=== PATIENT | female | born 1950 | race Caucasian/White ===

== ENCOUNTER 2016-11-26 11:21 | Inpatient (IN) | payer MEDICARE, OTHER ==
[2016-11-26] MEDS ORDERED: NS 0.9% 1000 ML* 1,000 ML IV ONE (11:46)
[2016-11-26 12:06] LABS: Hematocrit 37 % (35-47); Hemoglobin 11.9 g/dl (12.0-16.0); Mean Corpuscular HGB Conc 33 g/dl (31-36); Mean Corpuscular Hemoglobin 30 pg (27-31); Mean Corpuscular Volume 92 fL (80-97); Mean Platelet Volume 9 um3 (7.4-10.4); Red Blood Count 3.99 10^6/ul (4.0-5.4); Red Cell Distribution Width 15 % (10.5-15); White Blood Count 9.3 10^3/ul (3.5-10.8)
[2016-11-26] MEDS ORDERED: Amiodarone 150 MG IVPREMIX* 150 MG/100 ML BAG IV ONE (12:09)
[2016-11-26 12:15] LABS: C Reactive Protein 14.83 mg/L (< 5.00); Magnesium 1.5 mg/dL (1.9-2.7)
[2016-11-26 12:21] LABS: Troponin I 0.12 ng/mL (<0.04)
[2016-11-26] MEDS ORDERED: Magnesium Sulfate 2 GM IV* 2 GM/50 ML BAG IVPB ONE (12:22)
[2016-11-26 12:25] LABS: TSH (Thyroid Stimulating Horm) 1.95 mcIU/mL (0.34-5.60)
[2016-11-26] MEDS ORDERED: Adenosine* 3 MG/ML VIAL IV PUSH ONE (12:32)
--- NOTE | 2016-11-26 12:32 | RAD ---
Indication: Tachycardia. Single frontal view of the chest performed at 1155 hours was reviewed. Comparison is made with previous exam dated December 18, 2013. Cardiomegaly is noted. Bibasilar airspace disease consistent with bibasilar pneumonia is likely present. IMPRESSION: NO ACTIVE CARDIOPULMONARY DISEASE IS NOTED. BIBASILAR AIRSPACE DISEASE CONSISTENT WITH BIBASILAR PNEUMONIA IS IDENTIFIED. INTERSTITIAL EDEMA IS NOTED.
[2016-11-26] MEDS ORDERED: Diltiazem IV* 5 MG/ML 5 ML VIAL (for loading dose/IV Push) (25 MG) IV SLOW PU ONE (12:51)
[2016-11-26] MEDS ORDERED: Diltiazem DRIP* 100 MG/100 ML ADDV.BAG IVPB ONE ×2 (12:52→13:32)
[2016-11-26] MEDS ORDERED: NS 0.9% 1000 ML* 1,000 ML IV SCH (13:00)
--- NOTE | 2016-11-26 14:26 | ED ---
Karan Arellano Karl, scribed for Gage Jorge MD on 11/26/16 at 1140 . HPI Cardiac - HPI Summary HPI Summary: Pt is a 66 y/o female BIBA that presents to the ED c/o cardiac issues. Pt reported that she has been having intermittent SOB for the past 5-6 days but has been sick "on and off" for a total of 2 weeks. Pt stated that she has been having CP when exerting herself and the last known instance of this CP was yesterday. Pt was at a doctor's office today and she was referred to the ED after an EKG revealed tachycardia. Pt denied any current SOB, CP, and denied any nausea or vomiting altogether. - History of Current Complaint Stated Complaint: RAPID HEART RATE Time Seen by Provider: 11/26/16 11:26 Hx Obtained From: Patient Onset/Duration: Started Days Ago, Atraumatic, Still Present Timing: Constant Initial Severity: Mild Current Severity: None Pain Intensity: 0 - CP Pain Scale Used: 0-10 Numeric - Additional Pertinent History Primary Care Physician: [id number] - Allergy/Home Medications Allergies/Adverse Reactions: Allergies Allergy/AdvReac Type Severity Reaction Status Date / Time Morphine AdvReac Dizziness Verified 11/26/16 11:26 PMH/Surg Hx/FS Hx/Imm Hx Endocrine/Hematology History: Reports: Hx Diabetes Denies: Hx Anticoagulant Therapy, Hx Blood Disorders, Hx Blood Transfusions, Hx Bone Marrow Disease, Hx Systemic Lupus Erythematosus, Hx Sickle Cell Disease , Hx Thyroid Disease, Hx Anemia, Hx Unexplained Bleeding, Other Endocrine/ Hematological Disorders Cardiovascular History: Reports: Hx Hypercholesterolemia, Hx Hypertension, Hx Rheumatic Fever - as a child Denies: Hx Angina, Hx Cardiomegaly, Hx Congestive Heart Failure, Hx Coronary Artery Disease, Hx Pacemaker/ICD, Hx Peripheral Vascular Disease, Hx Valvular Heart Disease, Other Cardiovascular Problems/Disorders Respiratory History: Reports: Hx Asthma - childhood only, uses inhaler occasionally, Hx Pneumonia - childhood Denies: Hx Chronic Bronchitis, Hx Chronic Obstructive Pulmonary Disease (COPD ), Hx Cystic Fibrosis, Hx Lung Cancer, Hx Pleural Effusion, Hx Pulmonary Edema, Hx Pulmonary Embolism, Hx Seasonal Allergies, Hx Sleep Apnea, Other Respiratory Problems/Disorders GI History: Reports: Hx Gall Bladder Disease, Hx Gastroesophageal Reflux Disease , Hx Irritable Bowel, Other GI Disorders - polyps, GERD Denies: Hx Cirrhosis, Hx Crohn's Disease, Hx Hiatal Hernia, Hx Jaundice, Hx Ulcer Musculoskeletal History: Reports: 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 Denies: Hx Bursitis, Hx Osteoporosis, Hx Scoliosis, Hx Tendonitis Comment Only: Hx Rheumatoid Arthritis - osteo vs. rheumatoid Sensory History: Reports: Hx Cataracts - surgical repair, Hx Contacts or Glasses - glasses, Hx Vision Problem Denies: Hx Eye Injury, Hx Eye Prosthesis, Hx Glaucoma, Hx Legally Blind, Hx Macular Degeneration, Hx Deafness, Hx Hearing Aid, Hx Hearing Problem, Other Sensory Impairments Opthamlomology History: Reports: Hx Cataracts - surgical repair, Hx Contacts or Glasses - glasses, Hx Vision Problem Denies: Hx Eye Injury, Hx Eye Prosthesis, Hx Glaucoma, Hx Legally Blind, Hx Macular Degeneration, Other Sensory Impairments Neurological History: Denies: Hx Dementia, Hx Headaches, Hx Migraine, Hx Nerve Disease, Hx Seizures , Hx Spinal Cord Injury, Hx Transient Ischemic Attacks (TIA), Other Neuro Impairments/Disorders Psychiatric History: Reports: Hx Depression Denies: Hx Anxiety - Cancer History Cancer Type, Location and Year: BREAST CANCER Hx Chemotherapy: No Hx Radiation Therapy: No Hx Palliative Cancer Treatment: Yes - LUMPECTOMY - Surgical History Surgery Procedure, Year, and Place: tonsillectomy, neck surgery, hysterectomy, bilat cataract surgery, LEFT FIBULA FX, LEFT BREAST LUMPECTOMY. Hx Anesthesia Reactions: No - Immunization History Date of Tetanus Vaccine: Unk Date of Influenza Vaccine: Fall 2013 Infectious Disease History: Denies: Hx Clostridium Difficile, Hx Hepatitis, Hx Human Immunodeficiency Virus (HIV), Hx of Known/Suspected MRSA, Hx Shingles, Hx Tuberculosis, Hx Known/ Suspected VRE, Hx Known/Suspected VRSA, History Other Infectious Disease - Family History Known Family History: Positive: Cardiac Disease - father, Other - CA - mother Family History: Breast CA - Social History Alcohol Use: None Substance Use Type: Reports: None Substance Use Comment - Amount & Last Used: Ultram ER Smoking Status (MU): Never Smoked Tobacco Review of Systems Constitutional: Negative Eyes: Negative ENT: Negative Positive: Chest Pain Positive: Shortness Of Breath Negative: Vomiting, Nausea Genitourinary: Negative Musculoskeletal: Negative Skin: Negative Neurological: Negative Psychological: Normal All Other Systems Reviewed And Are Negative: Yes Physical Exam Triage Information Reviewed: Yes Vital Signs On Initial Exam: Temp Pulse Resp BP Pulse Ox 98 F 149 16 118/75 98 11/26/16 11:59 11/26/16 11:59 11/26/16 11:59 11/26/16 11:59 11/26/16 11:59 Vital Signs Reviewed: Yes Appearance: Positive: Well-Appearing, No Pain Distress Skin: Positive: Warm, Skin Color Reflects Adequate Perfusion, Dry Head/Face: Positive: Normal Head/Face Inspection Eyes: Positive: EOMI, JULIO ENT: Positive: Normal ENT inspection Neck: Positive: Supple, Nontender Respiratory/Lung Sounds: Positive: Clear to Auscultation, Breath Sounds Present Cardiovascular: Positive: Tachycardia - at 148 bpm Abdomen Description: Positive: Nontender, Soft Bowel Sounds: Positive: Present Musculoskeletal: Positive: Normal, Strength/ROM Intact Neurological: Positive: Normal, Sensory/Motor Intact, Alert, Oriented to Person Place, Time Psychiatric: Positive: Affect/Mood Appropriate Diagnostics - Vital Signs Vital Signs Temp Pulse Resp BP Pulse Ox 11/26/16 13:51 73 112/54 96 11/26/16 13:30 146 105/69 97 11/26/16 13:00 146 103/59 97 11/26/16 12:48 146 116/68 97 11/26/16 12:30 146 117/72 98 11/26/16 12:00 147 118/75 97 11/26/16 11:59 98 F 149 16 118/75 98 11/26/16 11:34 147 11 105/66 97 11/26/16 11:32 147 15 96 11/26/16 11:31 104/69 11/26/16 11:26 98 F 148 20 105/66 94 - Laboratory Lab Results: Lab Results 11/26/16 11/26/16 11/26/16 Range/Units 11:30 11:30 11:30 WBC 9.3 (3.5-10.8) 10^3/ul RBC 3.99 L (4.0-5.4) 10^6/ul Hgb 11.9 L (12.0-16.0) g/dl Hct 37 (35-47) % MCV 92 (80-97) fL MCH 30 (27-31) pg MCHC 33 (31-36) g/dl RDW 15 (10.5-15) % Plt Count 319 (150-450) 10^3/ul MPV 9 (7.4-10.4) um3 Neut % (Auto) 56.4 (38-83) % Lymph % (Auto) 31.0 (25-47) % Callahan % (Auto) 8.5 (1-9) % Eos % (Auto) 3.0 (0-6) % Baso % (Auto) 1.1 (0-2) % Absolute Neuts (auto) 5.3 (1.5-7.7) 10^3/ul Absolute Lymphs (auto) 2.9 (1.0-4.8) 10^3/ul Absolute Monos (auto) 0.8 (0-0.8) 10^3/ul Absolute Eos (auto) 0.3 (0-0.6) 10^3/ul Absolute Basos (auto) 0.1 (0-0.2) 10^3/ul Absolute Nucleated RBC 0.01 10^3/ul Nucleated RBC % 0.1 INR (Anticoag Therapy) 0.97 (0.89-1.11) APTT 25.1 L (26.0-36.3) seconds D-Dimer, Quantitative 325 H (Less Than 230) ng/mL Lactic Acid (0.5-2.0) mmol/L Magnesium 1.5 L (1.9-2.7) mg/dL Total Creatine Kinase 196 (10-223) U/L CK-MB (CK-2) 10.8 H (0.6-6.3) ng/mL Troponin I 0.12 H* (<0.04) ng/mL C-Reactive Protein 14.83 H (< 5.00) mg/L B-Natriuretic Peptide ( - 100) pg/mL Lipase 11 (11.0-82.0) U/L TSH 1.95 (0.34-5.60) mcIU/mL 11/26/16 11/26/16 Range/Units 11:30 11:30 WBC (3.5-10.8) 10^3/ul RBC (4.0-5.4) 10^6/ul Hgb (12.0-16.0) g/dl Hct (35-47) % MCV (80-97) fL MCH (27-31) pg MCHC (31-36) g/dl RDW (10.5-15) % Plt Count (150-450) 10^3/ul MPV (7.4-10.4) um3 Neut % (Auto) (38-83) % Lymph % (Auto) (25-47) % Callahan % (Auto) (1-9) % Eos % (Auto) (0-6) % Baso % (Auto) (0-2) % Absolute Neuts (auto) (1.5-7.7) 10^3/ul Absolute Lymphs (auto) (1.0-4.8) 10^3/ul Absolute Monos (auto) (0-0.8) 10^3/ul Absolute Eos (auto) (0-0.6) 10^3/ul Absolute Basos (auto) (0-0.2) 10^3/ul Absolute Nucleated RBC 10^3/ul Nucleated RBC % INR (Anticoag Therapy) (0.89-1.11) APTT (26.0-36.3) seconds D-Dimer, Quantitative (Less Than 230) ng/mL Lactic Acid 1.7 (0.5-2.0) mmol/L Magnesium (1.9-2.7) mg/dL Total Creatine Kinase (10-223) U/L CK-MB (CK-2) (0.6-6.3) ng/mL Troponin I (<0.04) ng/mL C-Reactive Protein (< 5.00) mg/L B-Natriuretic Peptide 191 H ( - 100) pg/mL Lipase (11.0-82.0) U/L TSH (0.34-5.60) mcIU/mL Result Diagrams: 11/26/16 11:30 Lab Statement: Any lab studies that have been ordered have been reviewed, and results considered in the medical decision making process. - Radiology CXR Xray Interpretation: No Acute Changes Radiology Interpretation Completed By: Radiologist - IMPRESSION: NO ACTIVE CARDIOPULMONARY DISEASE IS NOTED. BIBASILAR AIRSPACE DISEASE CONSISTENT WITH BIBASILAR PNEUMONIA IS IDENTIFIED. INTERSTITIAL EDEMA IS NOTED. - EKG 11:18 Cardiac Rate: Tachycardia - at 148 bpm EKG Interpretation: Wide Complex Tachycardia, LBBB Re-Evaluation - Re-Evaluation First Eval Re-Evaluation Time: 12:43 Change: Unchanged Comment: Discussed results of EKG and imaging studies with the pt Disposition - Course Assessment/Plan: DISCUSSED WITH DR LAMA,CARDIOLOGY. WHEN GIVEN ADENOSINE 6MG IV, UNDERLYING AFLUTTER WAS PRESENT. DISCUSSED WITH DR MALONEY. ADMIT HOSPITALIST STABLE. - Diagnoses Provider Diagnoses: Atrial flutter - Physician Notifications Discussed Care Of Patient With: Dr. Lama (Cardiology) at 12:25 Discharge - Discharge Plan Condition: Stable Disposition: ADMITTED TO [facility] Referrals: Alexandru Maloney MD [Primary Care Provider] - The documentation as recorded by the Karan kidd Karl accurately reflects the service I personally performed and the decisions made by me, Gage Jorge MD.
[2016-11-26] MEDS ORDERED: Temazepam CAP* 15 MG PO PRN (16:11)
[2016-11-26] MEDS ORDERED: Dextrose 50% Syringe 50 ML* 25 GM/50 ML SYRINGE IV PUSH PRN (16:16)
[2016-11-26] MEDS ORDERED: Ondansetron TAB* 4 MG PO PRN (16:18)
[2016-11-26] MEDS ORDERED: Furosemide IV* 10 MG/ML 2 ML VIAL (20 MG) IV SLOW PU ONE (16:24)
[2016-11-26 16:33] LABS: Albumin 3.5 g/dL (3.2-5.2); BUN/Creatinine Ratio 18.5 (8-20); Calcium 8.9 mg/dL (8.6-10.3); EGFR African American 90.7 (>60); EGFR Non-African American 70.5 (>60); Globulin 2.5 g/dL (2-4); Total Bilirubin 0.4 mg/dL (0.2-1.0)
[2016-11-26 16:37] LABS: Direct Bilirubin 0.1 mg/dL (0.03-0.18); Indirect Bilirubin 0.3 mg/dL (0.3-1.0); Potassium 4.7 mmol/L (3.5-5.0)
[2016-11-26] MEDS: Insulin LISPRO* 1 UNITS UNIT SUBCUT SCH ×2 (18:12→22:08)
[2016-11-26] MEDS: Insulin GLARGINE(*) 1 UNITS UNIT SUBCUT SCH (18:14)
[2016-11-26] MEDS: Rivaroxaban TAB(*) 20 MG TAB PO SCH (18:27)
[2016-11-26] MEDS: Diltiazem DRIP* 100 MG/100 ML ADDV.BAG IVPB SCH ×2 (19:01→23:16)
[2016-11-26] MEDS: Levalbuterol 1.25MG/0.5ML NEB INH SCH ×2 (19:02→20:36)
[2016-11-26] MEDS ORDERED: Cilostazol TAB* 100 MG PO SCH (21:00)
[2016-11-26] MEDS: Docusate CAP* 100 MG PO SCH (22:08)
[2016-11-26] MEDS: Magnesium Oxide TAB* 400 MG PO SCH (22:08)
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
--- NOTE | 2016-11-26 23:15 | CONS ---
CC: Dr. Og * CONSULTATION REPORT: DATE OF CONSULTATION: 11/26/16 ADDENDUM: HOME MEDICATIONS: Include: 1. Insulin lispro 20 units subcu b.i.d. with meals. 2. Glargine (Lantus) 30 units subcu b.i.d. 3. Tramadol 50 mg a day. 4. Metformin 1000 mg b.i.d. 5. Quinapril 40 mg a day. 6. Ondansetron 8 mg q.6 hours p.r.n. 7. Naprosyn 220 mg p.o. q.8 hours p.r.n. 8. Metoprolol succinate XL 50 mg a day. 9. Metoclopramide 10 mg q.8 hours. 10. Magnesium 64 mg a day. 11. Isosorbide mononitrate (Imdur) 30 mg a day. 12. Hydrochlorothiazide 25 mg. 13. Flovent 2 puffs b.i.d. 14. Cymbalta 30 mg a day. 15. Vitamin B12 1000 mcg a day. 16. Pletal 100 mg a day b.i.d. 17. B complex vitamins 1 tablet a day. 18. Atorvastatin 80 mg a day. 19. Aspirin 81 mg a day. 20. Combivent 1 q.i.d. p.r.n. ALLERGIES: Include MORPHINE, which results in nausea. REVIEW OF SYSTEMS: Negative x10 except as otherwise listed. Given the presence of heart failure, we would consider stopping the Pletal. [id number]/[facility] #: [id number] MTDD
--- NOTE | 2016-11-26 23:32 | HP ---
HISTORY AND PHYSICAL: DATE OF ADMISSION: 11/26/16 PRIMARY CARE PROVIDER: Alexandru Brar MD CHIEF COMPLAINT: Shortness of breath and palpitations. The patient was sent in from doctor's office for evaluation of fast heart rate. HISTORY OF PRESENT ILLNESS: Ms. Russo is a 66-year-old female with history of diabetes and chronic left bundle branch block who had been feeling unwell and short of breath as well as weak for the past week and a half versus 11/15/16. She was evaluated in the emergency room and she was noted to be in atrial flutter. She was treated with adenosine which "uncovered" atrial flutter. At this point, she was given a dose of 150 mg of amiodarone IV and placed on a drip. Currently, she is in Aflutter with a heart rate in the 80s. Dr. Lama saw the patient in consultation. At this time, the patient is going to be admitted to the intensive care unit on Cardizem drip with possibility of EMILIANA cardioversion in the morning. PAST MEDICAL HISTORY: 1. History of rheumatic heart disease as a child. 2. History of asthma as a child. 3. Diabetes type 2 with diabetic retinopathy. 4. Hypertension. 5. History of colon polyps. 6. Known depression. 7. Debilitation. 8. Hysterectomy. 9. History of C-spine surgery after a trauma. 10. History of left bundle branch block. 11. History of chronic pain. 12. History of tonsillectomy. 13. Left breast lumpectomy for cancer. 14. Cholecystectomy in 2013. MEDICATIONS: Include: 1. Aspirin 81 mg daily. 2. Atorvastatin 80 mg daily. 3. Cilostazol 100 mg b.i.d. 4. Vitamin B12 1000 mcg daily. 5. Fluticasone 220 mcg 2 puffs daily. 6. Insulin Humalog 20 units twice a day with meals and additional sliding scale. 7. Hydrochlorothiazide 25 mg daily. 8. DuoNeb for inhalation 4 times a day as needed. 9. Lantus insulin 30 units twice a day. 10. Magnesium chloride 64 mg delayed release 1 pill daily. 11. Metformin 1000 mg b.i.d. 12. Metoclopramide 10 mg as needed for nausea. 13. Metoprolol succinate ER 50 mg daily. 14. Naproxen sodium 220 mg daily as needed. 15. [place] 3 fatty acids 1 g daily. 16. Zofran 80 mg on a p.r.n. basis. 17. Orphenadrine citrate ER 100 mg daily. 18. Quinapril 40 mg daily. 19. Tramadol 50 mg at bedtime p.r.n. ALLERGIES: MORPHINE caused vomiting postoperatively. FAMILY HISTORY: Positive for diabetes in uncle. SOCIAL HISTORY: The patient denies tobacco, alcohol ,or drug use. She is on disability and lives with her who is surrogate and his name is Jaylan Russo. REVIEW OF SYSTEMS: Please see the history of present illness. In addition to the above mentioned, the patient denies chest pain. She stated that she has paroxysmal nocturnal dyspnea for the past week and a half as well as dyspnea on exertion for the past week and a half. She denies weight gain. She has no GI complaints. All the remaining 14 systems are reviewed with the patient and were otherwise negative. PHYSICAL EXAMINATION GENERAL: This is a very pleasant 66-year-old female, who is in no acute distress. Awake, alert and oriented x3. VITAL SIGNS: Blood pressure of 124/78, heart rate of 82 and regular, respiratory rate 18, oxygen saturation 95% on 2 L of nasal cannula, temperature of 98. HEENT: Head atraumatic, normocephalic. Eyes: Pupils equal, reactive to light and accommodation. Oropharynx clear. Mucosa moist. NECK: Supple. No JVD. No bruits bilaterally. RESPIRATORY: Rales in bilateral lower halves of the both lungs. CARDIOVASCULAR: Regular rate and rhythm. Aflutter on monitor. No murmur on auscultation. ABDOMEN: Slightly distended, soft, nontender. Bowel sounds present in all 4 quadrants. EXTREMITIES: There is no edema. Pulses +2 bilaterally. No clubbing or cyanosis. NEURO EVALUATION: Speech clear. Cranial nerves II through XII grossly intact. Motor strength is 5/5 bilaterally. SKIN: Evaluation of the skin, no ecchymotic areas or rashes noted. PSYCHIATRIC EVALUATION: Alert and oriented x3 with no evidence of anxiety or depression. LABORATORY DATA: Showed sodium of 131, potassium of 4.7, chloride 103, carbon dioxide 19, BUN 15, creatinine 0.81. Liver function tests showed alkaline phosphatase of 156, ALT of 86. The patient's magnesium was 1.5. Bilirubin was 0.4. The patient's C-reactive protein was 14. Troponin was 0.12. Brain natriuretic peptide was 191. CBC: White blood cell count of 9.2, hemoglobin of 11.9, hematocrit of 37, platelets of 315. Portable chest x-ray read by the radiologist: "No acute cardiopulmonary disease noted." Bibasilar airspace disease consistent with basilar pneumonia identified. Interstitial edema is noted. From my evaluation of the chest x-ray , I believe that the patient most likely has vascular congestion and an infiltrate is not visualized. The patient's EKG, wide ventricular tachycardia with heart rate of 148 beats per minute. In retrospect because the patient has history of left bundle branch block as well as likely atrial flutter with left bundle branch block. The patient's D-dimer was slightly elevated at 325. Troponin is 0.12. ASSESSMENT AND PLAN: 1. For atrial flutter with left ventricular response. I discussed the case with Dr. Lama who is going to consult on the case. The patient is going to be continued on Cardizem drip in the intensive care unit. For the time being, the patient most likely is going to have a EMILIANA cardioversion in the morning if she does not convert herself. For anticoagulation, we discussed with the patient and the patient's present in the room Coumadin versus newer anticoagulants. The patient prefers to be on Xarelto, which was actually also recommended by Dr. Lama and is going to be started today. In regards to the patient's electrolyte abnormalities, her magnesium is going to be replaced and her TSH was reported at 1.95, which is normal. 2. In regards to the patient's dyspnea on exertion and paroxysmal nocturnal dyspnea. It appears the patient is in mild congestive heart failure most likely due to atrial flutter. The patient is going to be placed on daily weights as well as intake and output measurements as well as a dose of 20 mg of Lasix IV tonight. 3. In regards to elevation of liver function test most likely due to vascular congestion and atrial fibrillation. We will repeat the levels in the morning. The patient has no abdominal pain to suggest any other pathology. 4. For diabetes, the patient is going to be placed on lower dose of Lantus and insulin sliding scale. 5. For her hypertension, her Imdur, hydrochlorothiazide, and quinapril are going to be held. The patient is going to be continued on Cardizem drip and metoprolol. 6. For hypomagnesemia, we are going to replace p.o. and IV. 7. Please also note that I discussed with Dr. Lama, who reviewed medical records that are still not available to me that the patient had a stress test in June of 2016, which was unremarkable, but she does have significant septal hypertrophy. That is going to be further evaluated with EMILIANA. 8. For DVT prophylaxis, the patient is going to be placed on Xarelto. 9. Code status. The patient is a full code. TIME SPENT: Please note that approximately 75 minutes were spent on admission of this patient, more than half that time was spent [id number] with the patient during the interview and physical exam. CC: Alexandru Brar MD; Taqueria Lama MD* [id number]/[facility] #: [id number] MTDD
[2016-11-27] MEDS: Levalbuterol 1.25MG/0.5ML NEB INH SCH ×4 (01:22→17:34)
[2016-11-27 06:37] LABS: Hematocrit 34 % (35-47); Hemoglobin 11.2 g/dl (12.0-16.0); Mean Corpuscular HGB Conc 33 g/dl (31-36); Mean Corpuscular Hemoglobin 30 pg (27-31); Mean Corpuscular Volume 91 fL (80-97); Mean Platelet Volume 8 um3 (7.4-10.4); Red Blood Count 3.72 10^6/ul (4.0-5.4); Red Cell Distribution Width 14 % (10.5-15)
[2016-11-27 06:51] LABS: Albumin 3.2 g/dL (3.2-5.2); BUN/Creatinine Ratio 17.4 (8-20); Calcium 7.9 mg/dL (8.6-10.3); Direct Bilirubin 0.2 mg/dL (0.03-0.18); EGFR African American 109.1 (>60); EGFR Non-African American 84.9 (>60); Globulin 2.4 g/dL (2-4); HDL Cholesterol 42.1 mg/dL; Indirect Bilirubin 0.3 mg/dL (0.3-1.0); Magnesium 1.6 mg/dL (1.9-2.7); Potassium 3.8 mmol/L (3.5-5.0); Total Bilirubin 0.5 mg/dL (0.2-1.0); Total Protein 5.6 g/dL (6.4-8.9)
[2016-11-27] MEDS: Insulin LISPRO* 1 UNITS UNIT SUBCUT SCH ×6 (07:59→21:19)
--- NOTE | 2016-11-27 08:08 | PN ---
Subjective - Subjective Reason for Note: Progress Note History: I have obtained the history of her presentation from the patient, Julissa Lira NP at my medical office, Dr. Taqueria Lama's consultation note and Dr. Penny Lentz's admitting history and physical. She has had a cough and some increasing shortness of breath since X-mas. Last 5 days or so this has worsened. She has had exertional dyspnea and wheezing. She has also had some paroxysmal nocturnal dyspnea and orthopnea. In addition to this she has had a mostly non-productive cough - bringing up occasional clear sputum. She developed some chest pressure - worse with taking a deep breath or with coughing. She has chronically poor management of her diabetes, but this hasn't been exacerbated. She had the lowest glucose measured of 65 mg/dl more than 2 weeks ago. She has responded with rate control with IV diltiazem. However, she feels dyspneic at rest. This morning she has no edema, only the slightest chest pressure. She has had no stroke like symptoms. Active Problems: Active Problems Asymmetric septal hypertrophy (Acute) Atrial flutter (Acute) I48.92 Congestive cardiac failure (Acute) I50.9 Dyspnea (Acute) R06.00 Backache (Chronic) M54.9 Diabetes mellitus type 2 (Chronic) E11.9 Essential hypertension (Chronic) I10 Gastroesophageal reflux disease (Chronic) K21.9 Hypercholesterolemia (Chronic) E78.0 Left bundle branch block (Chronic) I44.7 Microalbuminuria (Chronic) R80.9 Neuropathy (Chronic) G62.9 Obesity (Chronic) E66.9 Retinopathy (Chronic) H35.00 Current Medications: Current Medications Acetaminophen (Tylenol Tab*) 650 mg PO Q4H PRN PRN Reason: FEVER/PAIN Aspirin (Aspirin Ec Low Dose*) 81 mg PO QAM [facility] Atorvastatin Calcium (Lipitor*) 80 mg PO DAILY [facility] Cyanocobalamin (Vitamin B12 Tab*) 1,000 mcg PO DAILY [facility] Dextrose (D50w Syringe 50 Ml*) 12.5 gm IV PUSH .FOR FS < 60 - SS PRN PRN Reason: FS < 60 Docusate Sodium (Colace Cap*) 100 mg PO BID [facility] Last Admin: 11/26/16 22:08 Dose: 100 mg Duloxetine HCl (Cymbalta Cap*) 30 mg PO DAILY [facility] Sodium Chloride (Ns 0.9% 1000 Ml*) 1,000 mls @ 150 mls/hr IV PER RATE [facility] Diltiazem HCl (Cardizem Iv Advan*) 100 mg in 100 mls @ 5 mls/hr IVPB ED ONCE ONE PRN Reason: 5 MG/HR Stop: 11/27/16 08:51 Last Admin: 11/26/16 13:49 Dose: 5 mls/hr Diltiazem HCl (Cardizem Iv Advan*) 100 mg in 100 mls @ 5 mls/hr IVPB .PER RATE [facility] PRN Reason: 5 MG/HR Last Admin: 11/26/16 23:16 Dose: 5 mls/hr Insulin Glargine (Lantus(*)) 20 units SUBCUT Q24H [facility] Last Admin: 11/26/16 18:14 Dose: 20 unit Insulin Human Lispro (Humalog*) 0 units SUBCUT ACHS [facility] PRN Reason: Protocol Last Admin: 11/27/16 07:59 Dose: Not Given Levalbuterol HCl (Xopenex 1.25 Mg/0.5 Ml Neb.Courtney*) 1.25 mg INH [id number] AWAKE [facility] Last Admin: 11/27/16 07:20 Dose: 1.25 mg Magnesium Oxide (Magox 400 Tab*) 800 mg PO BID [facility] Last Admin: 11/26/16 22:08 Dose: 800 mg Metoprolol Succinate (Toprol Xl Tab*) 50 mg PO DAILY [facility] Ondansetron HCl (Zofran Tab*) 8 mg PO Q6H PRN PRN Reason: NAUSEA Rivaroxaban (Xarelto (*)) 20 mg PO DAILY [facility] Last Admin: 11/26/16 18:27 Dose: 20 mg Temazepam (Restoril Cap*) 15 mg PO BEDTIME PRN PRN Reason: INSOMNIA Tramadol HCl (Ultram*) 50 mg PO DAILY [facility] - Review of Systems Constitutional Symptoms: Yes: Weakness, Fatigue, No: Fever Pulmonary: Positive: Cough, Sputum - mostly a dry cough, Respiratory Distress, Shortness of Breath Cardiology: Positive: Shortness of Breath, Peripheral Vascular Dis Negative: Chest Pain - pressure - very mild, Swelling of Ankles, Faintness, Syncope Gastroenterology: Negative: Abdominal Pain, Nausea, Change in Bowel Habits Genital - Urinary: Negative: Dysuria Endocrinology: Positive: Diabetes Mellitus Neurology: Positive: Migraines Negative: Headache, Change in Vision Home Medications: Home Medications Medication Instructions Recorded Confirmed Type zzInsulin GLARGINE(*) [Lantus(*)] 30 units SUBCUT BID 02/15/13 11/26/16 History zzInsulin inj LISPRO* [Humalog*] 20 units SUBCUT BID WITH MEALS MDD 02/15/1304/07 History 50 units Metoprolol Succinate XL TAB* 50 mg PO DAILY 06/08/13 11/26/16 History [Toprol XL TAB*] B-Complex Vitamins [Vitamin 1 tab PO DAILY 08/21/13 11/26/16 History B-Complex] Albuterol/Ipratropium INH(NF) 1 puff INH QID PRN 12/18/13 11/26/16 History [Combivent Inhaler(NF)] Cyanocobalamin TAB* [Vitamin B12 1,000 mcg PO DAILY 12/18/13 11/26/16 History TAB*] Fluticasone HFA 220 mcg(NF) 2 puff PO BID 12/18/13 11/26/16 History [Flovent Hfa 220 Mcg(NF)] Hydrochlorothiazide TAB* 25 mg PO QAM 12/18/13 11/26/16 History [Hydrodiuril TAB*] Multivitamins/Minerals TAB* [Thera 1 tab PO DAILY 12/18/13 11/26/16 History M Plus TAB*] Orphenadrine Citrate [Orphenadrine 100 mg PO DAILY 02/19/14 11/26/16 History Citrate ER] Aspirin EC Low Dose* [Ecotrin EC 81 mg PO QAM 07/05/15 11/26/16 History Low Dose*] Cilostazol TAB* [Pletal TAB*] 100 mg PO BID 07/05/15 11/26/16 History Glucagon (Rdna) [Glucagon 1 mg INJ ONCE PRN 07/05/15 11/26/16 History Emergency Kit] Quinapril (NF) [Accupril (NF)] 40 mg PO DAILY 07/05/15 11/26/16 History metFORMIN* [Glucophage*] 1,000 mg PO BID 07/05/15 11/26/16 History DULoxetine CAP* [Cymbalta CAP*] 30 mg PO DAILY 01/20/16 11/26/16 History Ondansetron TAB* [Zofran Tab*] 8 mg PO Q6H PRN 01/20/16 11/26/16 History Atorvastatin* [Lipitor*] 80 mg PO DAILY 11/26/16 11/26/16 History Isosorbide Mononitrate ER TAB* 30 mg PO DAILY 11/26/16 11/26/16 History [Imdur ER TAB*] Magnesium Chloride EC TAB* [Slow 64 mg PO DAILY 11/26/16 11/26/16 History Mag EC TAB*] Metoclopramide TAB* [Reglan TAB*] 10 mg PO Q8H PRN 11/26/16 11/26/16 History Naproxen Sodium [Sm All Day Relief] 220 mg PO Q8HR PRN 11/26/16 11/26/16 History Loenp-6-Ocej Ethyl Esters (NF) 1 gm PO DAILY 11/26/16 11/26/16 History [Lovaza (NF)] traMADol TAB* [Ultram*] 50 mg PO DAILY 11/26/16 11/26/16 History Allergies: Allergies Allergy/AdvReac Type Severity Reaction Status Date / Time Morphine AdvReac Dizziness Verified 11/26/16 11:26 Objective - Vital Signs Vital Signs: Vital Signs 11/26/16 11/26/16 11/26/16 16:15 16:30 16:45 Temperature Pulse Rate 73 80 82 Respiratory Rate Blood Pressure 109/63 127/79 112/64 (mmHg) O2 Sat by Pulse 97 98 97 Oximetry 11/26/16 11/26/16 11/26/16 17:00 17:15 17:30 Temperature Pulse Rate 79 86 86 Respiratory Rate Blood Pressure 123/57 131/86 145/89 (mmHg) O2 Sat by Pulse 96 96 96 Oximetry 11/26/16 11/26/16 11/26/16 17:45 17:48 18:00 Temperature Pulse Rate 88 88 99 Respiratory Rate Blood Pressure 158/134 110/70 122/59 (mmHg) O2 Sat by Pulse 99 96 97 Oximetry 11/26/16 11/26/16 11/26/16 18:15 18:30 18:45 Temperature Pulse Rate 70 112 98 Respiratory Rate Blood Pressure 114/68 133/96 127/84 (mmHg) O2 Sat by Pulse 96 97 96 Oximetry 11/26/16 11/26/16 11/26/16 19:00 19:15 19:46 Temperature Pulse Rate 93 84 67 Respiratory 22 Rate Blood Pressure 136/65 123/67 153/71 (mmHg) O2 Sat by Pulse 96 96 97 Oximetry 11/26/16 11/26/16 11/26/16 19:56 20:00 20:15 Temperature 98.3 F Pulse Rate 89 85 88 Respiratory 21 19 23 Rate Blood Pressure 146/68 140/64 125/54 (mmHg) O2 Sat by Pulse 96 96 93 Oximetry 11/26/16 11/26/16 11/26/16 20:30 20:36 20:41 Temperature Pulse Rate 79 82 Respiratory 24 Rate Blood Pressure 127/62 (mmHg) O2 Sat by Pulse 93 94 93 Oximetry 11/26/16 11/26/16 11/26/16 20:45 20:54 21:00 Temperature 98.3 F Pulse Rate 79 88 74 Respiratory 16 24 20 Rate Blood Pressure 129/59 153/71 123/57 (mmHg) O2 Sat by Pulse 93 92 94 Oximetry 11/26/16 11/26/16 11/26/16 21:15 21:30 21:45 Temperature Pulse Rate 75 76 Respiratory 19 20 Rate Blood Pressure 126/63 116/60 123/60 (mmHg) O2 Sat by Pulse 93 93 Oximetry 11/26/16 11/26/16 11/26/16 22:00 22:03 22:15 Temperature Pulse Rate 75 74 79 Respiratory 23 22 22 Rate Blood Pressure 128/69 136/67 (mmHg) O2 Sat by Pulse 94 96 94 Oximetry 11/26/16 11/26/16 11/26/16 22:30 22:45 23:00 Temperature Pulse Rate 71 71 66 Respiratory 19 17 18 Rate Blood Pressure 135/97 119/79 121/67 (mmHg) O2 Sat by Pulse 93 95 94 Oximetry 11/26/16 11/26/16 11/26/16 23:15 23:30 23:33 Temperature Pulse Rate 70 72 Respiratory 17 20 23 Rate Blood Pressure 136/67 120/72 (mmHg) O2 Sat by Pulse 93 92 Oximetry 11/26/16 11/27/16 11/27/16 23:45 00:00 00:01 Temperature Pulse Rate 71 71 70 Respiratory 16 16 16 Rate Blood Pressure 107/61 139/66 (mmHg) O2 Sat by Pulse 92 92 92 Oximetry 11/27/16 11/27/16 11/27/16 00:15 00:30 00:45 Temperature Pulse Rate 71 72 72 Respiratory 18 22 17 Rate Blood Pressure 125/65 137/66 136/64 (mmHg) O2 Sat by Pulse 93 95 97 Oximetry 11/27/16 11/27/16 11/27/16 00:47 01:00 01:15 Temperature 97.6 F Pulse Rate 72 72 Respiratory 17 15 Rate Blood Pressure 125/68 129/63 (mmHg) O2 Sat by Pulse 97 96 Oximetry 11/27/16 11/27/16 11/27/16 01:30 01:45 02:00 Temperature Pulse Rate 72 72 72 Respiratory 15 16 16 Rate Blood Pressure 123/72 119/67 133/63 (mmHg) O2 Sat by Pulse 96 95 95 Oximetry 11/27/16 11/27/16 11/27/16 02:15 02:30 02:52 Temperature Pulse Rate 72 74 Respiratory 20 21 17 Rate Blood Pressure 119/81 132/62 (mmHg) O2 Sat by Pulse 94 92 Oximetry 11/27/16 11/27/16 11/27/16 02:54 03:00 03:30 Temperature Pulse Rate 71 72 Respiratory 15 15 15 Rate Blood Pressure 118/64 131/68 (mmHg) O2 Sat by Pulse 94 94 Oximetry 11/27/16 11/27/16 11/27/16 04:00 04:30 05:00 Temperature 97.5 F Pulse Rate 72 72 73 Respiratory 17 16 16 Rate Blood Pressure 124/62 127/96 139/65 (mmHg) O2 Sat by Pulse 92 95 94 Oximetry 11/27/16 11/27/16 11/27/16 05:26 06:00 06:16 Temperature Pulse Rate 72 73 Respiratory 22 19 25 Rate Blood Pressure 139/66 (mmHg) O2 Sat by Pulse 94 93 Oximetry 11/27/16 11/27/16 11/27/16 06:30 07:25 07:47 Temperature 98.1 F Pulse Rate 72 79 Respiratory 20 17 Rate Blood Pressure 146/59 (mmHg) O2 Sat by Pulse 94 98 Oximetry - Intake and Output Intake and Output: Intake & Output 11/24/16 11/25/16 11/26/16 11/27/16 11:59 11:59 11:59 11:59 Intake Total 1266 Output Total 1200 Balance 66 Weight 191 lb 9.307 oz Intake: IV Fluids 1147 NS (0.9%) 1143 Medicated IV 119 CARDIZEM 119 Output: Urine 1200 Intake and Output Start: 11/26/16 16: 24 Freq: 06,14,2200 Status: Active Document 11/27/16 06:00 [id number] (Rec: 11/27/16 06:50 [id number]) - Physical Exam General Physical Exam Comment: Warm and well perfused. She is in no acute distress General: No Cyanosis, No Anemia, No Jaundice, No Clubbing Skin: Normal: Lesions Lungs and Chest: Yes: Chest Expansion Full, Chest Expansion Symetrica, Percussion Note Resonant, Vessicular Breath Sounds, Crackles - left base, a few scattered fine crackles. No: Wheezes, Respiratory Distress Heart Rate and Rhythm: Regular Additional Cardiovascular: Yes: Normal Heart Sounds. No: Heart Murmur, Pedal Edema Abdominal Exam: Yes: Soft, Bowel Sounds Present. No: Distention, Abdominal Mass , Hepatomegaly - Extremities Cranial Nerves II-XII Intact: Yes Limbs: Normal Power, Normal Tone - Neuro Orientation: A/O x3 Speech: Normal Results - Results Lab Results: Laboratory Results - last 24 hr 11/26/16 11/26/16 11/26/16 17:50 17:59 21:44 WBC RBC Hgb Hct MCV MCH MCHC RDW Plt Count MPV Neut % (Auto) Lymph % (Auto) Bledsoe % (Auto) Eos % (Auto) Baso % (Auto) Absolute Neuts (auto) Absolute Lymphs (auto) Absolute Monos (auto) Absolute Eos (auto) Absolute Basos (auto) Absolute Nucleated RBC Nucleated RBC % Sodium Potassium Chloride Carbon Dioxide Anion Gap BUN Creatinine Est GFR ( Amer) Est GFR (Non-Af Amer) BUN/Creatinine Ratio Glucose POC Glucose (mg/dL) 135 H 206 H Calcium Magnesium Total Bilirubin Direct Bilirubin Indirect Bilirubin AST ALT Alkaline Phosphatase Troponin I 0.16 H* Total Protein Albumin Globulin Albumin/Globulin Ratio Triglycerides Cholesterol LDL Cholesterol HDL Cholesterol 11/27/16 11/27/16 06:11 06:11 WBC 9.0 RBC 3.72 L Hgb 11.2 L Hct 34 L MCV 91 MCH 30 MCHC 33 RDW 14 Plt Count 302 MPV 8 Neut % (Auto) 59.1 Lymph % (Auto) 27.6 Bledsoe % (Auto) 8.7 Eos % (Auto) 3.6 Baso % (Auto) 1.0 Absolute Neuts (auto) 5.3 Absolute Lymphs (auto) 2.5 Absolute Monos (auto) 0.8 Absolute Eos (auto) 0.3 Absolute Basos (auto) 0.1 Absolute Nucleated RBC 0 Nucleated RBC % 0 Sodium 135 Potassium 3.8 Chloride 106 Carbon Dioxide 23 Anion Gap 6 BUN 12 Creatinine 0.69 Est GFR ( Amer) 109.1 Est GFR (Non-Af Amer) 84.9 BUN/Creatinine Ratio 17.4 Glucose 85 POC Glucose (mg/dL) Calcium 7.9 L Magnesium 1.6 L Total Bilirubin 0.50 Direct Bilirubin 0.20 H Indirect Bilirubin 0.3 AST 43 H ALT 78 H Alkaline Phosphatase 160 H Troponin I Total Protein 5.6 L Albumin 3.2 Globulin 2.4 Albumin/Globulin Ratio 1.3 Triglycerides 62 Cholesterol 93 LDL Cholesterol 39 HDL Cholesterol 42.1 Radiology Results: Patient Name: MARIE JEAN-BAPTISTE Medical Record#: [id number] Ordering Physician: Gage Jorge MD Acct. #: [id number] : 1950 Age: 66 Sex: F Location: EMERGENCY DEPARTMENT Exam Date: 11/26/16 1146 ADM Status: REG ER Order Information: CHEST AP PORTABLE Accession Number: [id number] CPT: 41156 Indication: Tachycardia. Single frontal view of the chest performed at 1155 hours was reviewed. Comparison is made with previous exam dated December 18, 2013. Cardiomegaly is noted. Bibasilar airspace disease consistent with bibasilar pneumonia is likely present. IMPRESSION: NO ACTIVE CARDIOPULMONARY DISEASE IS NOTED. BIBASILAR AIRSPACE DISEASE CONSISTENT WITH BIBASILAR PNEUMONIA IS IDENTIFIED. INTERSTITIAL EDEMA IS NOTED. <Electronically signed by Birgit Zamarripa MD in OV> 11/26/16 1229 Dictated By: Birgit Zamarripa MD Dictated Date/Time: 11/26/16 1229 Transcribed Date/Time: 11/26/16 1225 Copy to: CC:Alexandru Brar MD; Gage Jorge MD Imaging - [facility] Imaging - [facility] Imaging - [facility] [address] [place] [id number] ph ([phone]) ph ([phone]) ph ([phone]) 1 of EKG Report: EKG: Telemetry 75 with atrial flutter this morning. Assessment - Problem List Assessment: Patient Problems Asymmetric septal hypertrophy (Acute) Atrial flutter (Acute) Congestive cardiac failure (Acute) Dyspnea (Acute) Backache (Chronic) Diabetes mellitus type 2 (Chronic) Essential hypertension (Chronic) Gastroesophageal reflux disease (Chronic) Hypercholesterolemia (Chronic) Left bundle branch block (Chronic) Microalbuminuria (Chronic) Neuropathy (Chronic) Obesity (Chronic) Retinopathy (Chronic) Plan: Asymmetric septal hypertrophy (Acute)Atrial flutter (Acute)Congestive cardiac failure (Acute) Dyspnea (Acute) Marie Jean-Baptiste presents with increasing dyspnea on exertion since X-mas, exacerbated with wheezing, PND, orthopnea and mild chest pressure for 5 days. We found her to have a broad complex tachycardia in my office that was found to be atrial flutter with a LBBB. She has not spontaneously reverted to sinus rhythm. This morning she continues to have some symptoms of pulmonary edema - with some crackles at her left base. I reviewed her CXR which shows evidence of pulmonary edema. She is due for cardioversion today. Cardiology are consulting and guiding this management. Her troponin I levels are increased, most likely due to her prolonged dysrhythmia. She has had a recent stress test and transthoracic echocardiogram. Cardiology will decide whether she should have medical therapy after cardioversion, or if she should have electrophysiological intervention with radiofrequency ablation of an accessory pathway. Backache (Chronic) inactive Diabetes mellitus type 2 (Chronic) She is nil by mouth at present. Her FS is at 85 mg/dl - I am concerned about hypoglycemia. Essential hypertension (Chronic) BP is maintained Gastroesophageal reflux disease (Chronic) no symptoms today Hypercholesterolemia (Chronic) secondary diagnosis Left bundle branch block (Chronic) Microalbuminuria (Chronic) secondary diagnosis Neuropathy (Chronic) secondary diagnosis Obesity (Chronic) secondary diagnosis Retinopathy (Chronic) secondary diagnosis I spoke to the patient and explained the nature of her cardiac problems and the likely management. She agrees with the therapeutic plan
[2016-11-27] MEDS ORDERED: Dextrose 50% Syringe 50 ML* 25 GM/50 ML SYRINGE IV PUSH PRN (08:34)
[2016-11-27] MEDS ORDERED: D5W 1/2 NS KCl 20 Meq 1000 ML* 1,000 ML IV SCH (09:00)
[2016-11-27] MEDS: Furosemide IV* 10 MG/ML VIAL (40 MG) IV SLOW PU SCH ×3 (09:05→22:10)
[2016-11-27] MEDS: Diltiazem DRIP* 100 MG/100 ML ADDV.BAG IVPB SCH ×2 (09:10→23:31)
[2016-11-27] MEDS ORDERED: Metoprolol Tartrate IV* 1 MG/ML 5 ML VIAL ONE (09:56)
[2016-11-27] MEDS ORDERED: Midazolam* 1 MG/ML 5 ML VIAL (5 MG) ONE ×2 (09:58→10:47)
[2016-11-27] MEDS ORDERED: fentaNYL* 50 MCG/ML 2 ML VIAL (100 MCG VIAL) ONE ×2 (09:58→10:47)
[2016-11-27] MEDS ORDERED: Flumazenil* 0.1 MG/ML 5 ML MDV ONE ×2 (09:59→10:47)
[2016-11-27] MEDS ORDERED: Naloxone* 0.4 MG/ML 1 ML VIAL ONE ×2 (09:59→10:47)
[2016-11-27] MEDS ORDERED: Lidocaine 2% VISCOUS* 15 ML UDC ONE ×2 (09:59→10:47)
[2016-11-27] MEDS ORDERED: Metoprolol Tartrate IV* 1 MG/ML 5 ML VIAL IV ONE (11:00)
--- NOTE | 2016-11-27 12:47 | TEE ---
Patient: DANIA JEAN-BAPTISTE [facility] Rec#: [id number] : 1950 Date: 11/27/2016 Age: 66y Height: 165.1 cm / 65.0 in Weight: 86.64 kg / 191.0 lbs Sex: F BSA: 1.94 Room#: [facility] Type: Inpatient Referring: Taqueria Lama MD Performing: Fortino Verma MD Reading: Fortino Verma MD General Matcher: Genoveva Doll RDCS Nurse: Yisel Joseph RN Transesophageal Echocardiogram Indication: A-fib with RVR BP: 146/59 HR: 120 Rhythm: A-Fib Findings History: PVD,DM,HTN,HLD,rheumatic heart disease,murmur,obesity,LBBB. Technical Comments: The study quality is good. Left Ventricle: The left ventricular chamber size is normal. Septal wall hypertrophy is observed. The estimated ejection fraction is 55-60%. Left Atrium: The left atrium is slightly dilated. There is no thrombus visualized in the left atrial appendage. Right Ventricle: The right ventricular cavity size is normal. The right ventricular global systolic function is normal. Right Atrium: The right atrial cavity size is normal. A patent foramen ovale is not demonstrated with color Doppler and agitated contrast. Aortic Valve: The aortic valve is trileaflet. The aortic valve leaflets are mildly thickened. There is a trace of aortic regurgitation. There is no evidence of aortic stenosis. Mitral Valve: The mitral valve leaflets are mildly thickened. There is mild mitral regurgitation. There is no evidence of mitral stenosis. Tricuspid Valve: The tricuspid valve leaflets are normal. There is mild tricuspid regurgitation. There is evidence of borderline pulmonary hypertension. There is no tricuspid stenosis. Pulmonic Valve: The pulmonic valve appears normal. There is a trace pulmonic regurgitation. There is no pulmonic stenosis. Pericardium: The pericardium appears normal. Aorta: There is no dilatation of the ascending aorta. There is no dilatation of the aortic arch. There is no dilation of the aortic root. There is plaque visualized in the descending aorta. Pulmonary Artery: The main pulmonary artery appears normal. Venous: The bicaval view was obtained and appears normal. The pulmonary veins appear normal in size. The flow pattern of the pulmonary veins appear normal. EMILIANA Procedures: History and physical as well as labs were reviewed. The patient was in a fasting state. Risks and benefits of the procedure, including alternatives, were discussed and written informed consent was obtained. The patient and/or their health care hr representative expressed understanding of the procedure, risks and benefits. Baseline and continuous monitoring of blood pressure, heart rate, pulse oximetry and heart rhythm was performed throughout the procedure. The appropriate time-out procedure was performed as per [facility] protocol. The patient was placed in the left lateral decubitus position. The patient's posterior pharynx was anesthetized with 20ml of 2% viscous lidocaine. The patient received IV Midazolam with a total dose of The patient received IV Fentanyl with a total dose of An oral bite block was inserted for protection of oral dentition. The multiplane transesophageal echocardiogram probe was inserted through the posterior oropharynx and advanced into the esophagus without difficulty. Multiple 2D images were obtained of the heart and its related structures. Color flow Doppler was used for evaluation. Spectral Doppler was also used. The atrial septum was interrogated with color flow Doppler. At the conclusion of the procedure the probe was removed with continuous suction without complications. The patient tolerated the procedure with no apparent complications. Conclusions The left ventricular chamber size is normal. Septal wall hypertrophy is observed. The estimated ejection fraction is 55-60%. There is no thrombus visualized in the left atrial appendage. There is a trace of aortic regurgitation. There is mild mitral regurgitation. There is mild tricuspid regurgitation. There is a trace pulmonic regurgitation. Measurements Name Value Normal Range Aortic Annulus 1.8 cm (1.4 - 2.6) Ao root diameter (2D) 2.8 cm (2.1 - 3.5) Ascending Ao 3 cm (2.1 - 3.4) Name Value Normal Range MV E-wave Vmax 1.2 m/sec - MV deceleration time 118 msec - Name Value Normal Range TR Vmax 3.1 m/sec - TR peak gradient 39 mmHg -
[2016-11-27] MEDS: Metoprolol Succinate XL TAB* 50 MG PO SCH (13:16)
[2016-11-27] MEDS: Docusate CAP* 100 MG PO SCH ×2 (13:16→21:20)
[2016-11-27] MEDS: traMADol TAB* 50 MG PO SCH (13:16)
[2016-11-27] MEDS: Atorvastatin* 80 MG TAB PO SCH (13:16)
[2016-11-27] MEDS: Cyanocobalamin TAB* 500 MCG PO SCH (13:17)
[2016-11-27] MEDS: Magnesium Oxide TAB* 400 MG PO SCH ×2 (13:17→21:20)
[2016-11-27] MEDS: Aspirin EC Low Dose* 81 MG TAB.EC PO SCH (13:17)
[2016-11-27] MEDS: Rivaroxaban TAB(*) 20 MG TAB PO SCH (13:21)
[2016-11-27] MEDS: DULoxetine DR CAP* 30 MG CAP.DR PO SCH (15:15)
[2016-11-27] MEDS: Insulin GLARGINE(*) 1 UNITS UNIT SUBCUT SCH (17:06)
--- NOTE | 2016-11-27 20:29 | CARD ---
CC: Dr. Alexandru Brar, Hospitalist Service; Dr. Og, Vascular Nurse; Dr. Verma CARDIOVERSION REPORT: DATE OF PROCEDURE: 11/27/16 PROCEDURE: Transesophageal echocardiography-guided direct current cardioversion. PROCEDURE: The patient is a 60-year-old female patient who was hospitalized with pneumonia. She wa s found to be in rapid atrial fibrillation, symptomatic. She does have significant history of hyper tension, left bundle branch block, transesophageal echo-guided cardioversion was further requested. She is on Xarelto and she is on IV Cardizem drip in the intensive care unit. After informed written consent had been obtained and with continuous blood pressure, pulse oximetry, and heart rate monitoring and after transesophageal echocardiography showed the patient to have no evidence of clots or masses or thrombus in the left atrium or the left atrial appendage, after the p atient received a total dose of 3 mg intravenously of Versed and 50 mcg of fentanyl initially and th en an additional 1 mg intravenous of Versed and another 25 mcg of fentanyl, synchronized biphasic 15 0 joules were delivered and successfully converted the patient to normal sinus rhythm. There were n o complications and the patient tolerated the procedure very well. An immediate EKG after the proce dure was obtained and confirmed the patient to be in normal sinus rhythm. CONCLUSION: Successful direct current cardioversion for atrial fibrillation. The patient is in nor mal sinus rhythm. There were no complications. [id number]/[facility] #: [id number]
[2016-11-27] MEDS ORDERED: diPHENhydraMINE PO* 25 MG PO PRN (21:29)
[2016-11-27] MEDS ORDERED: Albuterol 2.5 MG/3 ML NEB.SOL* (0.083%) ONE (21:59)
[2016-11-27] MEDS ORDERED: Furosemide IV* 10 MG/ML VIAL (40 MG) ONE (22:08)
[2016-11-27] MEDS ORDERED: Albuterol 2.5 MG/3 ML NEB.SOL* (0.083%) INH PRN (22:11)
[2016-11-27 22:19] LABS: FIO2 100
[2016-11-27 22:23] LABS: PCO2 Arterial 55 mmHg (35-45)
[2016-11-27 22:31] LABS: BUN/Creatinine Ratio 16.7 (8-20); Calcium 8.8 mg/dL (8.6-10.3); EGFR Non-African American 67.6 (>60); Potassium 3.4 mmol/L (3.5-5.0)
[2016-11-27 22:35] LABS: Troponin I 0.11 ng/mL (<0.04)
--- NOTE | 2016-11-27 22:39 | RAD ---
Indication: Shortness of breath, anxiety. Cardiovascular disease, asthma. Comparison: November 26, 2016 Technique: Upright AP 2213 hours Report: Cardiomegaly, prominent ill-defined central pulmonary vasculature with cephalization. Perihilar mid to lower lung zone alveolar opacities and small bilateral pleural effusions. IMPRESSION: The constellation of findings is consistent with pulmonary edema with significant worsening of disease compared with the exam of one day prior. As a bronchopneumonia could have a similar appearance clinical correlation is needed.
[2016-11-27] MEDS ORDERED: Nitroglycerin 2% OINT* 1 GM PAK ONE (22:55)
[2016-11-27 22:57] LABS: C Reactive Protein 18.77 mg/L (< 5.00)
[2016-11-27] MEDS ORDERED: Furosemide IV* 10 MG/ML VIAL (40 MG) IV ONE (23:00)
[2016-11-27 23:40] LABS: Magnesium 1.5 mg/dL (1.9-2.7)
[2016-11-28 00:20] LABS: EPAP 7; FIO2 100; IPAP 16; Resp Rate 15
[2016-11-28 00:24] LABS: PCO2 Arterial 47 mmHg (35-45)
[2016-11-28] MEDS: Levalbuterol 1.25MG/0.5ML NEB INH SCH ×4 (00:28→19:37)
[2016-11-28] MEDS: KCL 20 MEQ/100 ML IVPREMIX* 20 MEQ/100 ML BAG IV SCH ×2 (01:00→04:51)
--- NOTE | 2016-11-28 01:41 | PN ---
Progress Note - Progress Note Note: Consult report Mrs Russo is a 66F admitted for AFIB/RVR s/p cardioversion this AM with SOB throughout the day afterwards which worsened this evening prompting consultation. Upon arrival, Mrs Russo is maxed out on vapotherm 40L @ 100% with an saO2 in the high 80s and appearing borderline lethargic. She was able to answer questions appropriately and denied chest pain, N/V, F/C, palpitations , or other issues. CXR was reviewed and is consistent with florid CHF. She had received 20mg and 40mg doses of furosemide already. Vitals were otherwise reasonably stable. Lungs: fine crackles B bases up 2/3s, fair to poor aeration, moderate accessory muscle use CV: RR/RR, normal S1S2 abdomen: SNTND, NABS extremities: W&D labs reviewed Assessment volume overload : additional 40mg IV furosemide : 1" nitropaste : BiPap : continue supplemental oxygen : supportive care : Tanya Brar MD PCP apprised of findings & treatment
[2016-11-28 06:38] LABS: BUN/Creatinine Ratio 18.2 (8-20); Calcium 8.2 mg/dL (8.6-10.3); EGFR African American 96.2 (>60); EGFR Non-African American 74.8 (>60); Potassium 4.7 mmol/L (3.5-5.0)
[2016-11-28] MEDS: DULoxetine DR CAP* 30 MG CAP.DR PO SCH (08:56)
[2016-11-28] MEDS: Metoprolol Succinate XL TAB* 50 MG PO SCH (08:56)
[2016-11-28] MEDS: Atorvastatin* 80 MG TAB PO SCH (08:56)
[2016-11-28] MEDS: Rivaroxaban TAB(*) 20 MG TAB PO SCH (08:56)
[2016-11-28] MEDS: Cyanocobalamin TAB* 500 MCG PO SCH (08:56)
[2016-11-28] MEDS: Aspirin EC Low Dose* 81 MG TAB.EC PO SCH (08:57)
[2016-11-28] MEDS: traMADol TAB* 50 MG PO SCH (08:57)
[2016-11-28] MEDS: Magnesium Oxide TAB* 400 MG PO SCH ×2 (08:57→21:13)
[2016-11-28] MEDS: Docusate CAP* 100 MG PO SCH ×2 (08:57→21:12)
[2016-11-28] MEDS: Insulin LISPRO* 1 UNITS UNIT SUBCUT SCH ×7 (08:58→21:12)
--- NOTE | 2016-11-28 09:56 | PN ---
Subjective - Subjective Reason for Note: Progress Note History: I have reviewed the history directly with Dr. Lazo and his note. She had an episode of pulmonary edema and respiratory failure last night requiring intensive O2 therapy, high dose IV furosemide and vasodilator (NTG paste). Her ABGs showed high pCO2 and low pO2. She responded and did not have to be intubated. She felt severe anxiety during this time. This morning she is much better, sitting up to eat her breakfast. She continues to be dyspneic, but is feeling calm and has no chest pain, palpitations or edema. She has had no further atrial flutter Active Problems: Active Problems Asymmetric septal hypertrophy (Acute) Atrial flutter (Acute) I48.92 Congestive cardiac failure (Acute) I50.9 Dyspnea (Acute) R06.00 Backache (Chronic) M54.9 Diabetes mellitus type 2 (Chronic) E11.9 Essential hypertension (Chronic) I10 Gastroesophageal reflux disease (Chronic) K21.9 Hypercholesterolemia (Chronic) E78.0 Left bundle branch block (Chronic) I44.7 Microalbuminuria (Chronic) R80.9 Neuropathy (Chronic) G62.9 Obesity (Chronic) E66.9 Retinopathy (Chronic) H35.00 Current Medications: Current Medications Acetaminophen (Tylenol Tab*) 650 mg PO Q4H PRN PRN Reason: FEVER/PAIN Albuterol (Ventolin 2.5 Mg/3 Ml Neb.Courtney*) 2.5 mg INH Q2H PRN PRN Reason: . Aspirin (Aspirin Ec Low Dose*) 81 mg PO QAM [facility] Last Admin: 11/28/16 08:57 Dose: 81 mg Atorvastatin Calcium (Lipitor*) 80 mg PO DAILY [facility] Last Admin: 11/28/16 08:56 Dose: 80 mg Cyanocobalamin (Vitamin B12 Tab*) 1,000 mcg PO DAILY [facility] Last Admin: 11/28/16 08:56 Dose: 1,000 mcg Dextrose (D50w Syringe 50 Ml*) 12.5 gm IV PUSH .FOR FS < 60 - SS PRN PRN Reason: FS < 60 Diphenhydramine HCl (Benadryl Po*) 25 mg PO ONCE PRN PRN Reason: UNSPECIFIED Stop: 11/28/16 21:28 Docusate Sodium (Colace Cap*) 100 mg PO BID [facility] Last Admin: 11/28/16 08:57 Dose: 100 mg Duloxetine HCl (Cymbalta Cap*) 30 mg PO DAILY [facility] Last Admin: 11/28/16 08:56 Dose: 30 mg Diltiazem HCl (Cardizem Iv Advan*) 100 mg in 100 mls @ 5 mls/hr IVPB .PER RATE [facility] PRN Reason: 5 MG/HR Last Admin: 11/27/16 23:31 Dose: 10 mls/hr Potassium Chloride/Dextrose (D5w 1/2 Ns Kcl 20 Meq 1000 Ml*) 1,000 mls @ 75 mls /hr IV PER RATE [facility] Last Admin: 11/27/16 08:51 Dose: 75 mls/hr Insulin Glargine (Lantus(*)) 20 units SUBCUT Q24H [facility] Last Admin: 11/27/16 17:06 Dose: 20 unit Insulin Human Lispro (Humalog*) 0 units SUBCUT ACHS [facility] PRN Reason: Protocol Last Admin: 11/28/16 08:58 Dose: 2 units Insulin Human Lispro (Humalog*) 0 units SUBCUT AC [facility] PRN Reason: Protocol Last Admin: 11/28/16 09:15 Dose: 7 units Levalbuterol HCl (Xopenex 1.25 Mg/0.5 Ml Neb.Courtney*) 1.25 mg INH [id number] AWAKE [facility] Last Admin: 11/28/16 08:41 Dose: 1.25 mg Magnesium Oxide (Magox 400 Tab*) 800 mg PO BID [facility] Last Admin: 11/28/16 08:57 Dose: 800 mg Metoprolol Succinate (Toprol Xl Tab*) 50 mg PO DAILY [facility] Last Admin: 11/28/16 08:56 Dose: 50 mg Ondansetron HCl (Zofran Tab*) 8 mg PO Q6H PRN PRN Reason: NAUSEA Rivaroxaban (Xarelto (*)) 20 mg PO DAILY [facility] Last Admin: 11/28/16 08:56 Dose: 20 mg Temazepam (Restoril Cap*) 15 mg PO BEDTIME PRN PRN Reason: INSOMNIA Last Admin: 11/27/16 21:20 Dose: 15 mg Tramadol HCl (Ultram*) 50 mg PO DAILY [facility] Last Admin: 11/28/16 08:57 Dose: 50 mg Home Medications: Home Medications Medication Instructions Recorded Confirmed Type zzInsulin GLARGINE(*) [Lantus(*)] 30 units SUBCUT BID 02/15/13 11/26/16 History zzInsulin inj LISPRO* [Humalog*] 20 units SUBCUT BID WITH MEALS MDD 02/15/1304/07 History 50 units Metoprolol Succinate XL TAB* 50 mg PO DAILY 06/08/13 11/26/16 History [Toprol XL TAB*] B-Complex Vitamins [Vitamin 1 tab PO DAILY 08/21/13 11/26/16 History B-Complex] Albuterol/Ipratropium INH(NF) 1 puff INH QID PRN 12/18/13 11/26/16 History [Combivent Inhaler(NF)] Cyanocobalamin TAB* [Vitamin B12 1,000 mcg PO DAILY 12/18/13 11/26/16 History TAB*] Fluticasone HFA 220 mcg(NF) 2 puff PO BID 12/18/13 11/26/16 History [Flovent Hfa 220 Mcg(NF)] Hydrochlorothiazide TAB* 25 mg PO QAM 12/18/13 11/26/16 History [Hydrodiuril TAB*] Multivitamins/Minerals TAB* [Thera 1 tab PO DAILY 12/18/13 11/26/16 History M Plus TAB*] Orphenadrine Citrate [Orphenadrine 100 mg PO DAILY 02/19/14 11/26/16 History Citrate ER] Aspirin EC Low Dose* [Ecotrin EC 81 mg PO QAM 07/05/15 11/26/16 History Low Dose*] Cilostazol TAB* [Pletal TAB*] 100 mg PO BID 07/05/15 11/26/16 History Glucagon (Rdna) [Glucagon 1 mg INJ ONCE PRN 07/05/15 11/26/16 History Emergency Kit] Quinapril (NF) [Accupril (NF)] 40 mg PO DAILY 07/05/15 11/26/16 History metFORMIN* [Glucophage*] 1,000 mg PO BID 07/05/15 11/26/16 History DULoxetine CAP* [Cymbalta CAP*] 30 mg PO DAILY 01/20/16 11/26/16 History Ondansetron TAB* [Zofran Tab*] 8 mg PO Q6H PRN 01/20/16 11/26/16 History Atorvastatin* [Lipitor*] 80 mg PO DAILY 11/26/16 11/26/16 History Isosorbide Mononitrate ER TAB* 30 mg PO DAILY 11/26/16 11/26/16 History [Imdur ER TAB*] Magnesium Chloride EC TAB* [Slow 64 mg PO DAILY 11/26/16 11/26/16 History Mag EC TAB*] Metoclopramide TAB* [Reglan TAB*] 10 mg PO Q8H PRN 11/26/16 11/26/16 History Naproxen Sodium [Sm All Day Relief] 220 mg PO Q8HR PRN 11/26/16 11/26/16 History [id number] Ethyl Esters (NF) 1 gm PO DAILY 11/26/16 11/26/16 History [Lovaza (NF)] traMADol TAB* [Ultram*] 50 mg PO DAILY 11/26/16 11/26/16 History Allergies: Allergies Allergy/AdvReac Type Severity Reaction Status Date / Time Morphine AdvReac Dizziness Verified 11/26/16 11:26 Objective - Vital Signs Vital Signs: Vital Signs 11/27/16 11/27/16 11/27/16 10:00 11:00 11:05 Temperature Pulse Rate 44 Respiratory 26 30 27 Rate Blood Pressure 138/79 166/80 (mmHg) O2 Sat by Pulse 93 Oximetry 11/27/16 11/27/16 11/27/16 11:10 11:15 11:20 Temperature Pulse Rate 114 90 125 Respiratory 29 27 21 Rate Blood Pressure 147/93 149/97 168/72 (mmHg) O2 Sat by Pulse 93 96 94 Oximetry 11/27/16 11/27/16 11/27/16 11:25 11:30 11:35 Temperature Pulse Rate 145 66 65 Respiratory 19 19 19 Rate Blood Pressure 153/115 139/84 149/55 (mmHg) O2 Sat by Pulse 92 93 93 Oximetry 11/27/16 11/27/16 11/27/16 11:45 12:00 12:15 Temperature 98.7 F Pulse Rate 67 67 71 Respiratory 17 17 17 Rate Blood Pressure 137/59 128/69 147/57 (mmHg) O2 Sat by Pulse 96 98 96 Oximetry 11/27/16 11/27/16 11/27/16 12:30 12:45 13:00 Temperature Pulse Rate 70 81 Respiratory 16 19 Rate Blood Pressure 146/68 155/64 (mmHg) O2 Sat by Pulse 98 93 Oximetry 11/27/16 11/27/16 11/27/16 13:15 13:30 13:45 Temperature Pulse Rate 79 79 83 Respiratory 21 22 21 Rate Blood Pressure 147/67 149/64 144/62 (mmHg) O2 Sat by Pulse 96 95 95 Oximetry 11/27/16 11/27/16 11/27/16 13:50 14:00 14:15 Temperature Pulse Rate 81 80 79 Respiratory 18 21 18 Rate Blood Pressure 132/71 136/65 (mmHg) O2 Sat by Pulse 98 100 92 Oximetry 11/27/16 11/27/16 11/27/16 14:30 14:45 15:00 Temperature Pulse Rate 80 78 79 Respiratory 19 19 18 Rate Blood Pressure 147/62 141/60 150/54 (mmHg) O2 Sat by Pulse 93 95 96 Oximetry 11/27/16 11/27/16 11/27/16 15:15 15:30 15:45 Temperature Pulse Rate 79 79 78 Respiratory 17 17 17 Rate Blood Pressure 161/63 141/69 150/70 (mmHg) O2 Sat by Pulse 96 96 94 Oximetry 11/27/16 11/27/16 11/27/16 16:00 16:15 16:30 Temperature Pulse Rate 79 76 Respiratory 19 23 Rate Blood Pressure 141/68 137/59 140/74 (mmHg) O2 Sat by Pulse 93 93 Oximetry 11/27/16 11/27/16 11/27/16 16:45 17:00 17:35 Temperature Pulse Rate 79 81 Respiratory 23 22 Rate Blood Pressure 131/64 109/83 (mmHg) O2 Sat by Pulse 92 96 Oximetry 11/27/16 11/27/16 11/27/16 17:45 17:53 17:58 Temperature 98.8 F Pulse Rate 80 Respiratory 23 17 Rate Blood Pressure 161/71 (mmHg) O2 Sat by Pulse 99 Oximetry 11/27/16 11/27/16 11/27/16 18:00 19:00 19:30 Temperature Pulse Rate 87 87 Respiratory 21 25 23 Rate Blood Pressure 157/67 150/60 156/64 (mmHg) O2 Sat by Pulse 93 94 Oximetry 11/27/16 11/27/16 11/27/16 19:40 20:00 20:03 Temperature 98.5 F Pulse Rate 93 Respiratory 16 22 Rate Blood Pressure 130/98 (mmHg) O2 Sat by Pulse 93 Oximetry 11/27/16 11/27/16 11/27/16 20:30 21:00 21:04 Temperature Pulse Rate 108 102 Respiratory 21 31 Rate Blood Pressure 181/73 188/164 200/85 (mmHg) O2 Sat by Pulse 89 90 Oximetry 11/27/16 11/27/16 11/27/16 21:30 21:46 22:00 Temperature Pulse Rate 107 98 105 Respiratory 26 22 17 Rate Blood Pressure 214/96 178/93 189/106 (mmHg) O2 Sat by Pulse 90 91 87 Oximetry 11/27/16 11/27/16 11/27/16 22:15 22:30 23:00 Temperature Pulse Rate 97 99 91 Respiratory 17 26 25 Rate Blood Pressure 184/84 (mmHg) O2 Sat by Pulse 94 90 99 Oximetry 11/27/16 11/27/16 11/27/16 23:05 23:17 23:30 Temperature Pulse Rate 83 110 75 Respiratory 24 24 19 Rate Blood Pressure 160/67 125/63 (mmHg) O2 Sat by Pulse 100 99 100 Oximetry 11/28/16 11/28/16 11/28/16 00:00 00:01 00:06 Temperature 97.0 F Pulse Rate 79 79 79 Respiratory 22 24 26 Rate Blood Pressure 158/67 (mmHg) O2 Sat by Pulse 100 100 100 Oximetry 11/28/16 11/28/16 11/28/16 00:15 00:28 00:30 Temperature Pulse Rate 74 73 Respiratory 18 20 Rate Blood Pressure 127/64 (mmHg) O2 Sat by Pulse 100 100 100 Oximetry 11/28/16 11/28/16 11/28/16 00:35 01:00 02:00 Temperature Pulse Rate 74 77 77 Respiratory 19 18 15 Rate Blood Pressure 149/88 (mmHg) O2 Sat by Pulse 100 99 100 Oximetry 11/28/16 11/28/16 11/28/16 02:30 03:00 03:30 Temperature Pulse Rate 79 80 78 Respiratory 16 16 16 Rate Blood Pressure 163/76 109/70 151/68 (mmHg) O2 Sat by Pulse 100 100 100 Oximetry 11/28/16 11/28/16 11/28/16 03:52 04:00 04:26 Temperature 97.4 F Pulse Rate 79 114 Respiratory 20 16 Rate Blood Pressure 151/66 (mmHg) O2 Sat by Pulse 100 100 Oximetry 11/28/16 11/28/16 11/28/16 04:30 05:00 05:30 Temperature Pulse Rate 78 74 76 Respiratory 16 17 15 Rate Blood Pressure 161/65 148/58 152/56 (mmHg) O2 Sat by Pulse 99 99 100 Oximetry 11/28/16 11/28/16 11/28/16 06:00 06:30 07:00 Temperature Pulse Rate 78 76 80 Respiratory 23 16 25 Rate Blood Pressure 156/59 162/63 154/60 (mmHg) O2 Sat by Pulse 100 100 100 Oximetry 11/28/16 11/28/16 11/28/16 07:30 07:45 08:47 Temperature 97.6 F Pulse Rate 73 85 Respiratory 16 26 Rate Blood Pressure 147/61 (mmHg) O2 Sat by Pulse 99 100 Oximetry - Intake and Output Intake and Output: Intake & Output 11/25/16 11/26/16 11/27/16 11/28/16 11:59 11:59 11:59 11:59 Intake Total 1266 1951 Output Total 3075 1650 Balance -1809 301 Weight 191 lb 12.835 oz 187 lb 9.814 oz Intake: IV Fluids 1147 885 D5W 1/2 NS 20 meq KCL 800 NS (0.9%) 1143 85 IVPB 122 D5W 1/2 NS 20 meq KCL 122 Medicated IV 119 184 CARDIZEM 119 184 Oral 760 Output: Urine 3075 1650 ADLs: Meal Record Start: 11/26/16 18: 45 Freq: 09,13,18 Status: Active Document 11/27/16 09:00 [id number] (Rec: 11/27/16 09:13 [id number] ICU-C20) Document 11/27/16 13:00 [id number] (Rec: 11/27/16 16:33 [id number] ICU-C07) Document 11/27/16 18:00 [id number] (Rec: 11/27/16 19:40 [id number] ICU-C07) Intake and Output Start: 11/26/16 16: 24 Freq: 06,14,2200 Status: Active Document 11/27/16 06:00 [id number] (Rec: 11/27/16 06:50 [id number] ICU-C07) Document 11/27/16 08:00 [id number] (Rec: 11/27/16 16:26 [id number] ICU-C07) Document 11/27/16 09:00 [id number] (Rec: 11/27/16 16:26 [id number] ICU-C07) Document 11/27/16 09:39 [id number] (Rec: 11/27/16 09:39 [id number] ICU-C20) Document 11/27/16 10:36 [id number] (Rec: 11/27/16 10:36 [id number] ICU-M21) Document 11/27/16 14:00 [id number] (Rec: 11/27/16 14:29 [id number] ICU-C20) Document 11/27/16 14:00 [id number] (Rec: 11/27/16 16:28 [id number] ICU-C07) Document 11/27/16 18:26 [id number] (Rec: 11/27/16 18:26 [id number] ICU-C20) Document 11/27/16 20:13 [id number] (Rec: 11/27/16 20:13 [id number] ICU-C14) Document 11/27/16 22:00 [id number] (Rec: 11/28/16 00:15 [id number] ICU-C14) Document 11/28/16 06:00 [id number] (Rec: 11/28/16 06:14 [id number] ICU-C16) - Physical Exam General Physical Exam Comment: Warm and well perfused, hemodynamically stable. Not in acute distress. Able to speak comfortably General: No Cyanosis, No Anemia, No Jaundice, No Lymphadenopathy, No Clubbing Lungs and Chest: Yes: Chest Expansion Full, Chest Expansion Symetrica, Crackles - distant fine crackles. No: Percussion Note Resonant - dull bases, Vessicular Breath Sounds - diminished air entry bases, Wheezes, Respiratory Distress, Use of Accessory Muscles Heart Rate and Rhythm: Regular Additional Cardiovascular: Yes: Normal Heart Sounds. No: Heart Murmur, Pedal Edema Abdominal Exam: Yes: Soft. No: Distention, Hepatomegaly, Abdominal Tenderness - Extremities Cranial Nerves II-XII Intact: Yes - Neuro Orientation: A/O x3 Speech: Normal Results - Results Lab Results: Laboratory Results - last 24 hr 11/27/16 11/27/16 11/27/16 12:54 14:20 17:26 Patient Temperature ABG pH ABG pCO2 ABG pO2 ABG HCO3 ABG O2 Saturation ABG Base Excess Respiration Rate O2 Delivery Device Ventilator Type Vent Mode FiO2 Inspiratory Time PEEP Pressure Support Pressure Control EPAP IPAP BiPAP Sodium Potassium Chloride Carbon Dioxide Anion Gap BUN Creatinine Est GFR ( Amer) Est GFR (Non-Af Amer) BUN/Creatinine Ratio Glucose POC Glucose (mg/dL) 163 H 211 H Calcium Magnesium Troponin I 0.10 H* C-Reactive Protein 11/27/16 11/27/16 11/27/16 21:00 22:05 22:10 Patient Temperature Not Reportable ABG pH 7.28 L ABG pCO2 55 H ABG pO2 71 L ABG HCO3 23.4 ABG O2 Saturation 95.1 ABG Base Excess -1.8 Respiration Rate Not Reportable O2 Delivery Device vapotherm Ventilator Type Not Reportable Vent Mode Not Reportable FiO2 100 Inspiratory Time Not Reportable PEEP Not Reportable Pressure Support Not Reportable Pressure Control Not Reportable EPAP Not Reportable IPAP Not Reportable BiPAP Not Reportable Sodium 132 L Potassium 3.4 L Chloride 106 Carbon Dioxide 27 Anion Gap -1 L BUN 14 Creatinine 0.84 Est GFR ( Amer) 87.0 Est GFR (Non-Af Amer) 67.6 BUN/Creatinine Ratio 16.7 Glucose 170 H POC Glucose (mg/dL) 203 H Calcium 8.8 Magnesium 1.5 L Troponin I 0.11 H* C-Reactive Protein 18.77 H 11/28/16 11/28/16 00:15 06:10 Patient Temperature Not Reportable ABG pH 7.38 ABG pCO2 47 H ABG pO2 144 H ABG HCO3 26.6 ABG O2 Saturation 99.7 H ABG Base Excess 2.1 H Respiration Rate 15 O2 Delivery Device bipap Ventilator Type Not Reportable Vent Mode s/t FiO2 100 Inspiratory Time Not Reportable PEEP 7 Pressure Support Not Reportable Pressure Control Not Reportable EPAP 7 IPAP 16 BiPAP Not Reportable Sodium 136 Potassium 4.7 Chloride 101 Carbon Dioxide 28 Anion Gap 7 BUN 14 Creatinine 0.77 Est GFR ( Amer) 96.2 Est GFR (Non-Af Amer) 74.8 BUN/Creatinine Ratio 18.2 Glucose 175 H POC Glucose (mg/dL) Calcium 8.2 L Magnesium Troponin I C-Reactive Protein Radiology Results: Patient Name: DANIA JEAN-BAPTISTE Record#: [id number] Ordering Physician: Alexandru Brar MD Acct. #: [id number] : 1950 Age: 66 Sex: F Location: [facility] Exam Date: 11/27/162158 ADM Status: ADM IN Order Information: CHEST AP PORTABLE Accession Number: [id number] CPT: 16709 Indication: Shortness of breath, anxiety. Cardiovascular disease, asthma. Comparison: November 26, 2016 Technique: Upright AP 2213 hours Report: Cardiomegaly, prominent ill-defined central pulmonary vasculature with cephalization. Perihilar mid to lower lung zone alveolar opacities and small bilateral pleural effusions. IMPRESSION: The constellation of findings is consistent with pulmonary edema with significant worsening of disease compared with the exam of one day prior. As a bronchopneumonia could have a similar appearance clinical correlation is needed. <Electronically signed by Cash Potter MD in [place]> 11/27/162235 Dictated By: Cash Potter MD Dictated Date/Time: 11/27/162235 Transcribed Date/Time: 11/27/162231 Copy to: CC:Alexandru Brar MD; Taqueria Lama MD; Penny Lentz MD Imaging - [facility] - [place] [facility] [address] [place] [address] ph ([phone]) ph ([phone]) ph ([phone]) 1 of 1 Assessment - Problem List Assessment: Patient Problems Asymmetric septal hypertrophy (Acute) Atrial flutter (Acute) Congestive cardiac failure (Acute) Dyspnea (Acute) Backache (Chronic) Diabetes mellitus type 2 (Chronic) Essential hypertension (Chronic) Gastroesophageal reflux disease (Chronic) Hypercholesterolemia (Chronic) Left bundle branch block (Chronic) Microalbuminuria (Chronic) Neuropathy (Chronic) Obesity (Chronic) Retinopathy (Chronic) Plan: Asymmetric septal hypertrophy (Acute) Underlying physiology. Atrial flutter (Acute) She had successful DC conversion yesterday - no recurrence Congestive cardiac failure (Acute) DyspneaShe had severe pulmonary edema last night. This is NOT bronchopneumonia as her WBC and CRP are not especially elevated. She has not had an acute NC - though her troponin I levels speak to demand ischemia. The pathophysiology is likely multifactorial: diastolic dysfunction, functional LV outflow track resistance, saline overload, a subtle degree of LV dysfunction from her tachycardia (her EMILIANA did not show significant reduction on her EF). Her BUN/CR are fine despite multiple doses of parenteral loop diuretic. I will continue with this. In addition, her potassium is on target. I will anticipate K loss with oral potassium, likewise with magnesium. I will check her BMP/Mag q12 for 24 hours Backache (Chronic) secondary diagnosis Diabetes mellitus type 2 (Chronic) Adequately controlled - I want to avoid hypoglycemia Essential hypertension (Chronic) Wide pulse pressure - room for further diuretic Gastroesophageal reflux disease (Chronic) secondary diagnosis Hypercholesterolemia (Chronic) secondary diagnosis Left bundle branch block (Chronic)secondary diagnosis Microalbuminuria (Chronic)secondary diagnosis Neuropathy (Chronic)secondary diagnosis Obesity (Chronic)secondary diagnosis Retinopathy (Chronic)secondary diagnosis I spoke with the patient and her and they agree with the management plan. I explored her resuscitation status, she would be intubated/mechanically ventilated if this is necessary
[2016-11-28] MEDS: Furosemide IV* 10 MG/ML 10 ML VIAL (100 MG) IV SCH (12:10)
[2016-11-28] MEDS: Diltiazem DRIP* 100 MG/100 ML ADDV.BAG IVPB SCH ×2 (12:18→23:10)
[2016-11-28] MEDS: Potassium Chlor TAB* 20 MEQ TAB.ER PO SCH ×2 (14:58→21:19)
[2016-11-28] MEDS: Insulin GLARGINE(*) 1 UNITS UNIT SUBCUT SCH (16:54)
[2016-11-28 17:56] LABS: BUN/Creatinine Ratio 21.3 (8-20); Calcium 7.8 mg/dL (8.6-10.3); EGFR African American 125.8 (>60); EGFR Non-African American 97.8 (>60); Potassium 3.4 mmol/L (3.5-5.0)
[2016-11-28] MEDS ORDERED: Potassium Chlor TAB* 20 MEQ TAB.ER PO ONE (20:00)
[2016-11-28] MEDS ORDERED: Furosemide IV* 10 MG/ML 10 ML VIAL (100 MG) IV ONE (23:00)
[2016-11-29 00:42] LABS: Urine Bacteria Absent (Absent); Urine Bilirubin Negative (Negative); Urine Glucose Negative (Negative); Urine Nitrite Negative (Negative)
[2016-11-29] MEDS: Levalbuterol 1.25MG/0.5ML NEB INH SCH ×4 (01:03→19:57)
[2016-11-29 05:37] LABS: Hematocrit 34 % (35-47); Hemoglobin 11.3 g/dl (12.0-16.0); Mean Corpuscular HGB Conc 33 g/dl (31-36); Mean Corpuscular Hemoglobin 30 pg (27-31); Mean Corpuscular Volume 90 fL (80-97); Mean Platelet Volume 8 um3 (7.4-10.4); Red Blood Count 3.82 10^6/ul (4.0-5.4); Red Cell Distribution Width 14 % (10.5-15)
[2016-11-29 05:56] LABS: Albumin 3.1 g/dL (3.2-5.2); BUN/Creatinine Ratio 17.7 (8-20); C Reactive Protein 45.43 mg/L (< 5.00); Calcium 8.6 mg/dL (8.6-10.3); Direct Bilirubin 0.2 mg/dL (0.03-0.18); EGFR African American 123.5 (>60); Globulin 2.4 g/dL (2-4); Indirect Bilirubin 0.3 mg/dL (0.3-1.0); Magnesium 1.2 mg/dL (1.9-2.7); Potassium 3.7 mmol/L (3.5-5.0); Total Bilirubin 0.5 mg/dL (0.2-1.0); Total Protein 5.5 g/dL (6.4-8.9)
--- NOTE | 2016-11-29 07:32 | RAD ---
HISTORY: Follow-up, atrial fibrillation, shortness of breath COMPARISONS: November 27, 2016 VIEWS:1: Single frontal portable view of the chest at 6:15 AM FINDINGS: LINES AND TUBES: None. CARDIOMEDIASTINAL SILHOUETTE: The cardiomediastinal silhouette is normal for portable technique. PLEURA: There is a small left pleural effusion LUNG PARENCHYMA: There is improved aeration of the lungs bilaterally with persistent patchy alveolar opacification lung bases. ABDOMEN: The upper abdomen is clear. There is no subphrenic gas. BONES AND SOFT TISSUES: No bone or soft tissue abnormalities are noted. IMPRESSION: IMPROVED AERATION OF THE LUNGS BILATERALLY WITH PERSISTENT PATCHY ATELECTASIS VERSUS CONSOLIDATION OF THE LUNG BASES. SMALL LEFT PLEURAL EFFUSION
[2016-11-29] MEDS: Furosemide IV* 10 MG/ML 10 ML VIAL (100 MG) IV SCH ×2 (08:12→17:19)
[2016-11-29] MEDS: Cyanocobalamin TAB* 500 MCG PO SCH (08:15)
[2016-11-29] MEDS: Atorvastatin* 80 MG TAB PO SCH (08:15)
[2016-11-29] MEDS: Rivaroxaban TAB(*) 20 MG TAB PO SCH (08:15)
[2016-11-29] MEDS: Magnesium Oxide TAB* 400 MG PO SCH ×2 (08:15→20:47)
[2016-11-29] MEDS: DULoxetine DR CAP* 30 MG CAP.DR PO SCH (08:15)
[2016-11-29] MEDS: traMADol TAB* 50 MG PO SCH (08:15)
[2016-11-29] MEDS: Docusate CAP* 100 MG PO SCH ×2 (08:15→20:48)
[2016-11-29] MEDS: Aspirin EC Low Dose* 81 MG TAB.EC PO SCH (08:16)
[2016-11-29] MEDS: Metoprolol Succinate XL TAB* 50 MG PO SCH (08:16)
[2016-11-29] MEDS: Potassium Chlor TAB* 20 MEQ TAB.ER PO SCH ×3 (08:16→20:48)
[2016-11-29] MEDS: Insulin LISPRO* 1 UNITS UNIT SUBCUT SCH ×7 (08:36→20:48)
[2016-11-29] MEDS ORDERED: Magnesium Sulfate 2 GM IV* 2 GM/50 ML BAG IVPB ONE (09:33)
--- NOTE | 2016-11-29 09:33 | PN ---
Subjective - Subjective Reason for Note: Progress Note History: She is responding well to IV furosemide bid. However, she required BIPAP for a short period last night. Symptomatically, she is less dyspneic. She has had no chest pain/pressure. Her telemetry shows no new episodes of SVT/flutter. Her blood glucose is running too high - but she is on only 1/2 the insulin dose she usually has at home. Active Problems: Active Problems Asymmetric septal hypertrophy (Acute) Atrial flutter (Acute) I48.92 Congestive cardiac failure (Acute) I50.9 Dyspnea (Acute) R06.00 Backache (Chronic) M54.9 Diabetes mellitus type 2 (Chronic) E11.9 Essential hypertension (Chronic) I10 Gastroesophageal reflux disease (Chronic) K21.9 Hypercholesterolemia (Chronic) E78.0 Left bundle branch block (Chronic) I44.7 Microalbuminuria (Chronic) R80.9 Neuropathy (Chronic) G62.9 Obesity (Chronic) E66.9 Retinopathy (Chronic) H35.00 Current Medications: Current Medications Acetaminophen (Tylenol Tab*) 650 mg PO Q4H PRN PRN Reason: FEVER/PAIN Albuterol (Ventolin 2.5 Mg/3 Ml Neb.Courtney*) 2.5 mg INH Q2H PRN PRN Reason: . Aspirin (Aspirin Ec Low Dose*) 81 mg PO QAM [facility] Last Admin: 11/29/16 08:16 Dose: 81 mg Atorvastatin Calcium (Lipitor*) 80 mg PO DAILY [facility] Last Admin: 11/29/16 08:15 Dose: 80 mg Cyanocobalamin (Vitamin B12 Tab*) 1,000 mcg PO DAILY [facility] Last Admin: 11/29/16 08:15 Dose: 1,000 mcg Dextrose (D50w Syringe 50 Ml*) 12.5 gm IV PUSH .FOR FS < 60 - SS PRN PRN Reason: FS < 60 Docusate Sodium (Colace Cap*) 100 mg PO BID [facility] Last Admin: 11/29/16 08:15 Dose: 100 mg Duloxetine HCl (Cymbalta Cap*) 30 mg PO DAILY [facility] Last Admin: 11/29/16 08:15 Dose: 30 mg Furosemide (Lasix Iv*) 60 mg IV 0800,1700 [facility] Last Admin: 11/29/16 08:12 Dose: 60 mg Diltiazem HCl (Cardizem Iv Advan*) 100 mg in 100 mls @ 5 mls/hr IVPB .PER RATE [facility] PRN Reason: 5 MG/HR Last Admin: 11/28/16 23:10 Dose: 10 mls/hr Potassium Chloride/Dextrose (D5w 1/2 Ns Kcl 20 Meq 1000 Ml*) 1,000 mls @ 75 mls /hr IV PER RATE [facility] Last Admin: 11/27/16 08:51 Dose: 75 mls/hr Insulin Glargine (Lantus(*)) 20 units SUBCUT Q24H [facility] Last Admin: 11/28/16 16:54 Dose: 20 unit Insulin Human Lispro (Humalog*) 0 units SUBCUT ACHS [facility] PRN Reason: Protocol Last Admin: 11/29/16 08:36 Dose: 2 units Insulin Human Lispro (Humalog*) 0 units SUBCUT AC [facility] PRN Reason: Protocol Last Admin: 11/29/16 08:37 Dose: 7 units Levalbuterol HCl (Xopenex 1.25 Mg/0.5 Ml Neb.Courtney*) 1.25 mg INH [id number] AWAKE [facility] Last Admin: 11/29/16 07:28 Dose: 1.25 mg Magnesium Oxide (Magox 400 Tab*) 800 mg PO BID [facility] Last Admin: 11/29/16 08:15 Dose: 800 mg Metoprolol Succinate (Toprol Xl Tab*) 50 mg PO DAILY [facility] Last Admin: 11/29/16 08:16 Dose: 50 mg Ondansetron HCl (Zofran Tab*) 8 mg PO Q6H PRN PRN Reason: NAUSEA Potassium Chloride (Klor Con Er Tab*) 20 meq PO TID [facility] Last Admin: 11/29/16 08:16 Dose: 20 meq Rivaroxaban (Xarelto (*)) 20 mg PO DAILY [facility] Last Admin: 11/29/16 08:15 Dose: 20 mg Temazepam (Restoril Cap*) 15 mg PO BEDTIME PRN PRN Reason: INSOMNIA Last Admin: 11/27/16 21:20 Dose: 15 mg Tramadol HCl (Ultram*) 50 mg PO DAILY [facility] Last Admin: 11/29/16 08:15 Dose: 50 mg Home Medications: Home Medications Medication Instructions Recorded Confirmed Type zzInsulin GLARGINE(*) [Lantus(*)] 30 units SUBCUT BID 02/15/13 11/26/16 History zzInsulin inj LISPRO* [Humalog*] 20 units SUBCUT BID WITH MEALS MDD 02/15/1304/07 History 50 units Metoprolol Succinate XL TAB* 50 mg PO DAILY 06/08/13 11/26/16 History [Toprol XL TAB*] B-Complex Vitamins [Vitamin 1 tab PO DAILY 08/21/13 11/26/16 History B-Complex] Albuterol/Ipratropium INH(NF) 1 puff INH QID PRN 12/18/13 11/26/16 History [Combivent Inhaler(NF)] Cyanocobalamin TAB* [Vitamin B12 1,000 mcg PO DAILY 12/18/13 11/26/16 History TAB*] Fluticasone HFA 220 mcg(NF) 2 puff PO BID 12/18/13 11/26/16 History [Flovent Hfa 220 Mcg(NF)] Hydrochlorothiazide TAB* 25 mg PO QAM 12/18/13 11/26/16 History [Hydrodiuril TAB*] Multivitamins/Minerals TAB* [Thera 1 tab PO DAILY 12/18/13 11/26/16 History M Plus TAB*] Orphenadrine Citrate [Orphenadrine 100 mg PO DAILY 02/19/14 11/26/16 History Citrate ER] Aspirin EC Low Dose* [Ecotrin EC 81 mg PO QAM 07/05/15 11/26/16 History Low Dose*] Cilostazol TAB* [Pletal TAB*] 100 mg PO BID 07/05/15 11/26/16 History Glucagon (Rdna) [Glucagon 1 mg INJ ONCE PRN 07/05/15 11/26/16 History Emergency Kit] Quinapril (NF) [Accupril (NF)] 40 mg PO DAILY 07/05/15 11/26/16 History metFORMIN* [Glucophage*] 1,000 mg PO BID 07/05/15 11/26/16 History DULoxetine CAP* [Cymbalta CAP*] 30 mg PO DAILY 01/20/16 11/26/16 History Ondansetron TAB* [Zofran Tab*] 8 mg PO Q6H PRN 01/20/16 11/26/16 History Atorvastatin* [Lipitor*] 80 mg PO DAILY 11/26/16 11/26/16 History Isosorbide Mononitrate ER TAB* 30 mg PO DAILY 11/26/16 11/26/16 History [Imdur ER TAB*] Magnesium Chloride EC TAB* [Slow 64 mg PO DAILY 11/26/16 11/26/16 History Mag EC TAB*] Metoclopramide TAB* [Reglan TAB*] 10 mg PO Q8H PRN 11/26/16 11/26/16 History Naproxen Sodium [Sm All Day Relief] 220 mg PO Q8HR PRN 11/26/16 11/26/16 History Hjugz-5-Feco Ethyl Esters (NF) 1 gm PO DAILY 11/26/16 11/26/16 History [Lovaza (NF)] traMADol TAB* [Ultram*] 50 mg PO DAILY 11/26/16 11/26/16 History Allergies: Allergies Allergy/AdvReac Type Severity Reaction Status Date / Time Morphine AdvReac Dizziness Verified 11/26/16 11:26 Objective - Vital Signs Vital Signs: Vital Signs 11/28/16 11/28/16 11/28/16 09:47 10:00 10:30 Temperature Pulse Rate 87 89 86 Respiratory 21 24 24 Rate Blood Pressure 153/47 151/54 151/49 (mmHg) O2 Sat by Pulse 92 93 97 Oximetry 11/28/16 11/28/16 11/28/16 11:00 11:30 12:00 Temperature 98.5 F Pulse Rate 88 87 93 Respiratory 26 27 26 Rate Blood Pressure 151/65 150/67 162/81 (mmHg) O2 Sat by Pulse 96 96 96 Oximetry 11/28/16 11/28/16 11/28/16 12:30 12:53 13:00 Temperature Pulse Rate 81 85 Respiratory 23 23 21 Rate Blood Pressure 149/57 154/59 (mmHg) O2 Sat by Pulse 97 98 Oximetry 11/28/16 11/28/16 11/28/16 13:25 13:30 14:00 Temperature Pulse Rate 84 83 77 Respiratory 23 24 16 Rate Blood Pressure 160/60 143/72 (mmHg) O2 Sat by Pulse 99 99 98 Oximetry 11/28/16 11/28/16 11/28/16 14:30 15:00 15:30 Temperature Pulse Rate 85 87 79 Respiratory 20 21 21 Rate Blood Pressure 158/90 145/58 137/57 (mmHg) O2 Sat by Pulse 93 90 91 Oximetry 11/28/16 11/28/16 11/28/16 16:00 16:30 17:00 Temperature 98.7 F Pulse Rate 84 80 81 Respiratory 22 32 28 Rate Blood Pressure 156/67 158/64 153/94 (mmHg) O2 Sat by Pulse 93 94 94 Oximetry 11/28/16 11/28/16 11/28/16 17:24 17:31 17:37 Temperature Pulse Rate 71 Respiratory 25 25 Rate Blood Pressure 136/51 (mmHg) O2 Sat by Pulse 97 Oximetry 11/28/16 11/28/16 11/28/16 18:00 19:00 19:30 Temperature Pulse Rate 79 81 83 Respiratory 25 29 24 Rate Blood Pressure 149/74 154/57 165/90 (mmHg) O2 Sat by Pulse 92 96 95 Oximetry 11/28/16 11/28/16 11/28/16 19:38 19:49 20:00 Temperature 98.4 F Pulse Rate 84 79 Respiratory 23 24 Rate Blood Pressure 139/50 (mmHg) O2 Sat by Pulse 99 100 Oximetry 11/28/16 11/28/16 11/28/16 20:37 21:00 21:30 Temperature Pulse Rate 77 72 72 Respiratory 24 22 25 Rate Blood Pressure 135/55 126/53 141/62 (mmHg) O2 Sat by Pulse 99 98 97 Oximetry 11/28/16 11/28/16 11/28/16 22:00 22:22 22:30 Temperature Pulse Rate 74 74 74 Respiratory 28 26 21 Rate Blood Pressure 137/52 131/57 (mmHg) O2 Sat by Pulse 95 96 95 Oximetry 11/28/16 11/28/16 11/28/16 23:00 23:30 23:44 Temperature 97.1 F Pulse Rate 75 83 Respiratory 28 29 Rate Blood Pressure 140/63 157/65 (mmHg) O2 Sat by Pulse 97 95 Oximetry 11/29/16 11/29/16 11/29/16 00:00 00:02 00:30 Temperature Pulse Rate 83 80 77 Respiratory 27 26 21 Rate Blood Pressure 152/65 157/84 (mmHg) O2 Sat by Pulse 97 97 98 Oximetry 11/29/16 11/29/16 11/29/16 00:57 01:00 01:30 Temperature Pulse Rate 74 79 Respiratory 18 18 17 Rate Blood Pressure 143/62 155/59 (mmHg) O2 Sat by Pulse 98 98 Oximetry 11/29/16 11/29/16 11/29/16 02:00 02:30 03:00 Temperature Pulse Rate 58 74 72 Respiratory 18 16 15 Rate Blood Pressure 139/49 144/51 132/41 (mmHg) O2 Sat by Pulse 98 99 98 Oximetry 11/29/16 11/29/16 11/29/16 03:30 04:00 04:16 Temperature 97.9 F Pulse Rate 76 75 Respiratory 17 17 20 Rate Blood Pressure 125/49 138/49 (mmHg) O2 Sat by Pulse 98 98 97 Oximetry 11/29/16 11/29/16 11/29/16 04:30 05:00 05:30 Temperature Pulse Rate 76 75 71 Respiratory 17 21 23 Rate Blood Pressure 136/49 154/60 151/83 (mmHg) O2 Sat by Pulse 97 94 93 Oximetry 11/29/16 11/29/16 11/29/16 05:53 06:00 06:30 Temperature Pulse Rate 80 77 Respiratory 26 20 28 Rate Blood Pressure 148/64 145/58 (mmHg) O2 Sat by Pulse 94 95 Oximetry 11/29/16 11/29/16 11/29/16 07:00 07:26 07:29 Temperature 98.1 F Pulse Rate 70 69 Respiratory 19 19 Rate Blood Pressure 161/57 (mmHg) O2 Sat by Pulse 96 99 Oximetry 11/29/16 11/29/16 11/29/16 07:30 07:31 07:39 Temperature Pulse Rate 70 70 Respiratory 18 18 16 Rate Blood Pressure 159/62 (mmHg) O2 Sat by Pulse 99 99 99 Oximetry 11/29/16 08:00 Temperature Pulse Rate 70 Respiratory 16 Rate Blood Pressure 157/72 (mmHg) O2 Sat by Pulse 100 Oximetry - Intake and Output Intake and Output: Intake & Output 11/26/16 11/27/16 11/28/16 11/29/16 11:59 11:59 11:59 11:59 Intake Total 1266 2251 1361 Output Total 3075 1650 3250 Balance -1809 601 -1889 Weight 191 lb 12.835 oz 187 lb 9.814 oz 189 lb 6.033 oz Intake: IV Fluids 1147 885 129 D5W 1/2 NS 20 meq KCL 800 NS (0.9%) 1143 85 129 IVPB 122 D5W 1/2 NS 20 meq KCL 122 Medicated IV 119 184 232 CARDIZEM 119 184 232 Oral 1060 1000 Output: Urine 3075 1650 Santacruz 3250 Other: Estimated Stool Amount Medium ADLs: Meal Record Start: 11/26/16 18: 45 Freq: 09,13,18 Status: Active Document 11/27/16 09:00 [id number] (Rec: 11/27/16 09:13 [id number] ICU-C20) Document 11/27/16 13:00 [id number] (Rec: 11/27/16 16:33 [id number] ICU-C07) Document 11/27/16 18:00 [id number] (Rec: 11/27/16 19:40 [id number] ICU-C07) Document 11/28/16 09:00 [id number] (Rec: 11/28/16 11:00 [id number] ICU-C07) Document 11/28/16 13:00 [id number] (Rec: 11/28/16 16:11 [id number] ICU-C14) Document 11/28/16 18:00 [id number] (Rec: 11/28/16 18:30 [id number] ICU-C07) Intake and Output Start: 11/26/16 16: 24 Freq: 06,14,2200 Status: Active Document 11/27/16 06:00 [id number] (Rec: 11/27/16 06:50 [id number] ICU-C07) Document 11/27/16 08:00 [id number] (Rec: 11/27/16 16:26 [id number] ICU-C07) Document 11/27/16 09:00 [id number] (Rec: 11/27/16 16:26 [id number] ICU-C07) Document 11/27/16 09:39 [id number] (Rec: 11/27/16 09:39 [id number] ICU-C20) Document 11/27/16 10:36 [id number] (Rec: 11/27/16 10:36 [id number] ICU-M21) Document 11/27/16 14:00 [id number] (Rec: 11/27/16 14:29 [id number] ICU-C20) Document 11/27/16 14:00 [id number] (Rec: 11/27/16 16:28 [id number] ICU-C07) Document 11/27/16 18:26 [id number] (Rec: 11/27/16 18:26 [id number] ICU-C20) Document 11/27/16 20:13 [id number] (Rec: 11/27/16 20:13 [id number] ICU-C14) Document 11/27/16 22:00 [id number] (Rec: 11/28/16 00:15 [id number] ICU-C14) Document 11/28/16 06:00 [id number] (Rec: 11/28/16 06:14 [id number] ICU-C16) Document 11/28/16 14:00 [id number] (Rec: 11/28/16 14:46 [id number] ICU-C14) Document 11/28/16 21:57 [id number] (Rec: 11/28/16 21:58 [id number] ICU-C16) Document 11/29/16 05:52 [id number] (Rec: 11/29/16 05:53 [id number] ICU-C06) - Physical Exam General: No Cyanosis, No Anemia, No Jaundice, No Lymphadenopathy, No Clubbing Lungs and Chest: Yes: Chest Expansion Full, Chest Expansion Symetrica, Vessicular Breath Sounds - diminished at bases, Crackles - distant fine crackles , Respiratory Distress - tachypnea. No: Percussion Note Resonant - dull bases, Wheezes, Use of Accessory Muscles Heart Rate and Rhythm: Regular Additional Cardiovascular: Yes: Normal Heart Sounds. No: Heart Murmur, Pedal Edema Abdominal Exam: Yes: Soft, Bowel Sounds Present. No: Distention, Abdominal Mass , Hepatomegaly, Abdominal Tenderness - Extremities Cranial Nerves II-XII Intact: Yes Limbs: Normal Power, Normal Tone, Normal Gait - with assist - Neuro Orientation: A/O x3 Speech: Normal Results - Results Lab Results: Laboratory Results - last 24 hr 11/28/16 11/28/16 11/28/16 12:32 16:26 17:30 WBC RBC Hgb Hct MCV MCH MCHC RDW Plt Count MPV Neut % (Auto) Lymph % (Auto) Hancock % (Auto) Eos % (Auto) Baso % (Auto) Absolute Neuts (auto) Absolute Lymphs (auto) Absolute Monos (auto) Absolute Eos (auto) Absolute Basos (auto) Absolute Nucleated RBC Nucleated RBC % Sodium 129 L Potassium 3.4 L Chloride 108 Carbon Dioxide 28 Anion Gap -7 L BUN 13 Creatinine 0.61 Est GFR ( Amer) 125.8 Est GFR (Non-Af Amer) 97.8 BUN/Creatinine Ratio 21.3 H Glucose 210 H POC Glucose (mg/dL) 280 H 274 H Calcium 7.8 L Magnesium Total Bilirubin Direct Bilirubin Indirect Bilirubin AST ALT Alkaline Phosphatase C-Reactive Protein Total Protein Albumin Globulin Albumin/Globulin Ratio Urine Color Urine Appearance Urine pH Ur Specific [place] Urine Protein Urine Ketones Urine Blood Urine Nitrate Urine Bilirubin Urine Urobilinogen Ur Leukocyte Esterase Urine WBC (Auto) Urine RBC (Auto) Ur Squamous Epith Cells Urine Bacteria Urine Glucose 11/28/16 11/29/16 11/29/16 21:07 05:02 05:02 WBC 11.0 H RBC 3.82 L Hgb 11.3 L Hct 34 L MCV 90 MCH 30 MCHC 33 RDW 14 Plt Count 323 MPV 8 Neut % (Auto) 60.7 Lymph % (Auto) 25.1 Hancock % (Auto) 11.8 H Eos % (Auto) 1.7 Baso % (Auto) 0.7 Absolute Neuts (auto) 6.7 Absolute Lymphs (auto) 2.8 Absolute Monos (auto) 1.3 H Absolute Eos (auto) 0.2 Absolute Basos (auto) 0.1 Absolute Nucleated RBC 0 Nucleated RBC % 0 Sodium 133 Potassium 3.7 Chloride 100 L Carbon Dioxide 32 Anion Gap 1 L BUN 11 Creatinine 0.62 Est GFR ( Amer) 123.5 Est GFR (Non-Af Amer) 96.0 BUN/Creatinine Ratio 17.7 Glucose 171 H POC Glucose (mg/dL) 222 H Calcium 8.6 Magnesium 1.2 L Total Bilirubin 0.50 Direct Bilirubin 0.20 H Indirect Bilirubin 0.3 AST 22 ALT 48 Alkaline Phosphatase 141 H C-Reactive Protein 45.43 H Total Protein 5.5 L Albumin 3.1 L Globulin 2.4 Albumin/Globulin Ratio 1.3 Urine Color Urine Appearance Urine pH Ur Specific [place] Urine Protein Urine Ketones Urine Blood Urine Nitrate Urine Bilirubin Urine Urobilinogen Ur Leukocyte Esterase Urine WBC (Auto) Urine RBC (Auto) Ur Squamous Epith Cells Urine Bacteria Urine Glucose 11/29/16 11/29/16 08:02 23:55 WBC RBC Hgb Hct MCV MCH MCHC RDW Plt Count MPV Neut % (Auto) Lymph % (Auto) Hancock % (Auto) Eos % (Auto) Baso % (Auto) Absolute Neuts (auto) Absolute Lymphs (auto) Absolute Monos (auto) Absolute Eos (auto) Absolute Basos (auto) Absolute Nucleated RBC Nucleated RBC % Sodium Potassium Chloride Carbon Dioxide Anion Gap BUN Creatinine Est GFR ( Amer) Est GFR (Non-Af Amer) BUN/Creatinine Ratio Glucose POC Glucose (mg/dL) 170 H Calcium Magnesium Total Bilirubin Direct Bilirubin Indirect Bilirubin AST ALT Alkaline Phosphatase C-Reactive Protein Total Protein Albumin Globulin Albumin/Globulin Ratio Urine Color Straw Urine Appearance Clear Urine pH 6.0 Ur Specific [place] 1.004 L Urine Protein Negative Urine Ketones Negative Urine Blood 3+ H Urine Nitrate Negative Urine Bilirubin Negative Urine Urobilinogen Negative Ur Leukocyte Esterase Negative Urine WBC (Auto) Trace(0-5/hpf) Urine RBC (Auto) 3+(>10/hpf) H Ur Squamous Epith Cells Present H Urine Bacteria Absent Urine Glucose Negative Radiology Results: Patient Name: DANIA JEAN-BAPTISTE Medical Record#: [id number] Ordering Physician: Alexandru Brar MD Acct. #: [id number] : 1950 Age: 66 Sex: F Location: [facility] Exam Date: 11/29/16 0600 ADM Status: ADM IN Order Information: CHEST AP PORTABLE Accession Number: [id number] CPT: 67468 HISTORY: Follow-up, atrial fibrillation, shortness of breath COMPARISONS: November 27, 2016 VIEWS:1: Single frontal portable view of the chest at 6:15 AM FINDINGS: LINES AND TUBES: None. CARDIOMEDIASTINAL SILHOUETTE: The cardiomediastinal silhouette is normal for portable technique. PLEURA: There is a small left pleural effusion LUNG PARENCHYMA: There is improved aeration of the lungs bilaterally with persistent patchy alveolar opacification lung bases. ABDOMEN: The upper abdomen is clear. There is no subphrenic gas. BONES AND SOFT TISSUES: No bone or soft tissue abnormalities are noted. IMPRESSION: IMPROVED AERATION OF THE LUNGS BILATERALLY WITH PERSISTENT PATCHY ATELECTASIS VERSUS CONSOLIDATION OF THE LUNG BASES. SMALL LEFT PLEURAL EFFUSION <Electronically signed by Patricio Curran MD in OV> 11/29/16728 Dictated By: Patricio Curran MD Dictated Date/Time: 11/29/16728 Transcribed Date/Time: 11/29/16727 Copy to: CC:Alexandru Brar MD; Taqueria Lama MD; Penny Lentz MD Imaging - [facility] Imaging - [facility] Imaging - [facility] [address] [place] [id number] [address] [address] ph [phone]) ph ([phone]) ph ([phone]) 1 of 1 Assessment - Problem List Assessment: Patient Problems Asymmetric septal hypertrophy (Acute) Atrial flutter (Acute) Congestive cardiac failure (Acute) Dyspnea (Acute) Backache (Chronic) Diabetes mellitus type 2 (Chronic) Essential hypertension (Chronic) Gastroesophageal reflux disease (Chronic) Hypercholesterolemia (Chronic) Left bundle branch block (Chronic) Microalbuminuria (Chronic) Neuropathy (Chronic) Obesity (Chronic) Retinopathy (Chronic) Plan: Asymmetric septal hypertrophy (Acute) Atrial flutter (Acute)Congestive cardiac failure (Acute)Dyspnea (Acute) She is having a diuresis and her CXR (which I inspected) is improving. She continues to require BIPAP. I will replace her magnesium. I will maintain the Santacruz until we stop the IV diuretics. I will wean the diltiazem infusion and commence oral diltiazem Backache (Chronic) inactive Diabetes mellitus type 2 (Chronic) Increase her insulin dose - move lantus to bid Essential hypertension (Chronic) stable Gastroesophageal reflux disease (Chronic) secondary diagnosis Hypercholesterolemia (Chronic) secondary diagnosis Left bundle branch block (Chronic)secondary diagnosis Microalbuminuria (Chronic)secondary diagnosis Neuropathy (Chronic)secondary diagnosis Obesity (Chronic)secondary diagnosis Retinopathy (Chronic)secondary diagnosis I discussed the above with the patient. She requires another 24 hours in the ICU. I aim to transfer her tomorrow after another day of intensive diuretic therapy.
[2016-11-29] MEDS ORDERED: Diltiazem CD CAP* 240 MG PO ONE (09:34)
[2016-11-29] MEDS ORDERED: Insulin LISPRO* 1 UNITS UNIT SUBCUT SCH (09:36)
[2016-11-29] MEDS: Insulin GLARGINE(*) 1 UNITS UNIT SUBCUT SCH ×2 (09:56→21:55)
[2016-11-30] MEDS: Acetaminophen TAB* 325 MG PO PRN ×3 (01:58→23:13)
[2016-11-30] MEDS: Levalbuterol 1.25MG/0.5ML NEB INH SCH ×4 (02:14→19:59)
[2016-11-30 05:48] LABS: Hematocrit 33 % (35-47); Mean Corpuscular HGB Conc 33 g/dl (31-36); Mean Corpuscular Hemoglobin 30 pg (27-31); Mean Corpuscular Volume 89 fL (80-97); Mean Platelet Volume 8 um3 (7.4-10.4); Red Blood Count 3.73 10^6/ul (4.0-5.4); Red Cell Distribution Width 14 % (10.5-15); White Blood Count 10.5 10^3/ul (3.5-10.8)
[2016-11-30 05:59] LABS: BUN/Creatinine Ratio 19.4 (8-20); C Reactive Protein 63.75 mg/L (< 5.00); Calcium 8.2 mg/dL (8.6-10.3); EGFR African American 123.5 (>60); Magnesium 1.6 mg/dL (1.9-2.7)
[2016-11-30 06:01] LABS: Potassium 4.5 mmol/L (3.5-5.0)
--- NOTE | 2016-11-30 07:25 | PN ---
Subjective - Subjective Reason for Note: Progress Note History: She has had a good night and has not required BIPAP. She sat in a chair all day yesterday. She has no dyspnea at rest and no chest pressure. She is not coughing or bringing up sputum. She has experienced no fever/chills. She has some of her customary low back pain/stiffness. Her appetite is good - her FS were high during the day as she is eating better - her morning glucose is 126 mg /dl. Active Problems: Active Problems Asymmetric septal hypertrophy (Acute) Atrial flutter (Acute) I48.92 Congestive cardiac failure (Acute) I50.9 Dyspnea (Acute) R06.00 Backache (Chronic) M54.9 Diabetes mellitus type 2 (Chronic) E11.9 Essential hypertension (Chronic) I10 Gastroesophageal reflux disease (Chronic) K21.9 Hypercholesterolemia (Chronic) E78.0 Left bundle branch block (Chronic) I44.7 Microalbuminuria (Chronic) R80.9 Neuropathy (Chronic) G62.9 Obesity (Chronic) E66.9 Retinopathy (Chronic) H35.00 Current Medications: Current Medications Acetaminophen (Tylenol Tab*) 650 mg PO Q4H PRN PRN Reason: FEVER/PAIN Last Admin: 11/30/16 01:58 Dose: 650 mg Albuterol (Ventolin 2.5 Mg/3 Ml Neb.Courtney*) 2.5 mg INH Q2H PRN PRN Reason: . Aspirin (Aspirin Ec Low Dose*) 81 mg PO QAM [facility] Last Admin: 11/29/16 08:16 Dose: 81 mg Atorvastatin Calcium (Lipitor*) 80 mg PO DAILY [facility] Last Admin: 11/29/16 08:15 Dose: 80 mg Cyanocobalamin (Vitamin B12 Tab*) 1,000 mcg PO DAILY [facility] Last Admin: 11/29/16 08:15 Dose: 1,000 mcg Dextrose (D50w Syringe 50 Ml*) 12.5 gm IV PUSH .FOR FS < 60 - SS PRN PRN Reason: FS < 60 Docusate Sodium (Colace Cap*) 100 mg PO BID [facility] Last Admin: 11/29/16 20:48 Dose: 100 mg Duloxetine HCl (Cymbalta Cap*) 30 mg PO DAILY [facility] Last Admin: 11/29/16 08:15 Dose: 30 mg Furosemide (Lasix Iv*) 60 mg IV 0800,1700 [facility] Last Admin: 11/29/16 17:19 Dose: 60 mg Insulin Glargine (Lantus(*)) 20 units SUBCUT Q12H [facility] Last Admin: 11/29/16 21:55 Dose: 20 units Insulin Human Lispro (Humalog*) 0 units SUBCUT AC [facility] PRN Reason: Protocol Last Admin: 11/29/16 17:47 Dose: 6 units Insulin Human Lispro (Humalog*) 0 units SUBCUT ACHS [facility] PRN Reason: Protocol Last Admin: 11/29/16 20:48 Dose: 6 units Levalbuterol HCl (Xopenex 1.25 Mg/0.5 Ml Neb.Courtney*) 1.25 mg INH RT.[id number] AWAKE [facility] Last Admin: 11/30/16 02:14 Dose: Not Given Magnesium Oxide (Magox 400 Tab*) 800 mg PO BID [facility] Last Admin: 11/29/16 20:47 Dose: 800 mg Metoprolol Succinate (Toprol Xl Tab*) 50 mg PO DAILY [facility] Last Admin: 11/29/16 08:16 Dose: 50 mg Potassium Chloride (Klor Con Er Tab*) 20 meq PO TID [facility] Last Admin: 11/29/16 20:48 Dose: 20 meq Rivaroxaban (Xarelto (*)) 20 mg PO DAILY [facility] Last Admin: 11/29/16 08:15 Dose: 20 mg Temazepam (Restoril Cap*) 15 mg PO BEDTIME PRN PRN Reason: INSOMNIA Last Admin: 11/27/16 21:20 Dose: 15 mg Tramadol HCl (Ultram*) 50 mg PO DAILY [facility] Last Admin: 11/29/16 08:15 Dose: 50 mg Home Medications: Home Medications Medication Instructions Recorded Confirmed Type zzInsulin GLARGINE(*) [Lantus(*)] 30 units SUBCUT BID 02/15/13 11/26/16 History zzInsulin inj LISPRO* [Humalog*] 20 units SUBCUT BID WITH MEALS MDD 02/15/1304/07 History 50 units Metoprolol Succinate XL TAB* 50 mg PO DAILY 06/08/13 11/26/16 History [Toprol XL TAB*] B-Complex Vitamins [Vitamin 1 tab PO DAILY 08/21/13 11/26/16 History B-Complex] Albuterol/Ipratropium INH(NF) 1 puff INH QID PRN 12/18/13 11/26/16 History [Combivent Inhaler(NF)] Cyanocobalamin TAB* [Vitamin B12 1,000 mcg PO DAILY 12/18/13 11/26/16 History TAB*] Fluticasone HFA 220 mcg(NF) 2 puff PO BID 12/18/13 11/26/16 History [Flovent Hfa 220 Mcg(NF)] Hydrochlorothiazide TAB* 25 mg PO QAM 12/18/13 11/26/16 History [Hydrodiuril TAB*] Multivitamins/Minerals TAB* [Thera 1 tab PO DAILY 12/18/13 11/26/16 History M Plus TAB*] Orphenadrine Citrate [Orphenadrine 100 mg PO DAILY 02/19/14 11/26/16 History Citrate ER] Aspirin EC Low Dose* [Ecotrin EC 81 mg PO QAM 07/05/15 11/26/16 History Low Dose*] Cilostazol TAB* [Pletal TAB*] 100 mg PO BID 07/05/15 11/26/16 History Glucagon (Rdna) [Glucagon 1 mg INJ ONCE PRN 07/05/15 11/26/16 History Emergency Kit] Quinapril (NF) [Accupril (NF)] 40 mg PO DAILY 07/05/15 11/26/16 History metFORMIN* [Glucophage*] 1,000 mg PO BID 07/05/15 11/26/[address] CAP* [Cymbalta CAP*] 30 mg PO DAILY 01/20/16 11/26/16 History Ondansetron TAB* [Zofran Tab*] 8 mg PO Q6H PRN 01/20/16 11/26/16 History Atorvastatin* [Lipitor*] 80 mg PO DAILY 11/26/16 11/26/16 History Isosorbide Mononitrate ER TAB* 30 mg PO DAILY 11/26/16 11/26/16 History [Imdur ER TAB*] Magnesium Chloride EC TAB* [Slow 64 mg PO DAILY 11/26/16 11/26/16 History Mag EC TAB*] Metoclopramide TAB* [Reglan TAB*] 10 mg PO Q8H PRN 11/26/16 11/26/16 History Naproxen Sodium [Sm All Day Relief] 220 mg PO Q8HR PRN 11/26/16 11/26/16 History [id number] Ethyl Esters (NF) 1 gm PO DAILY 11/26/16 11/26/16 History [Lovaza (NF)] traMADol TAB* [Ultram*] 50 mg PO DAILY 11/26/16 11/26/16 History Allergies: Allergies Allergy/AdvReac Type Severity Reaction Status Date / Time Morphine AdvReac Dizziness Verified 11/26/16 11:26 Objective - Vital Signs Vital Signs: Vital Signs 11/29/16 11/29/16 11/29/16 07:26 07:29 07:30 Temperature 98.1 F Pulse Rate 69 70 Respiratory 19 18 Rate Blood Pressure 159/62 (mmHg) O2 Sat by Pulse 99 99 Oximetry 11/29/16 11/29/16 11/29/16 07:31 07:39 08:00 Temperature Pulse Rate 70 87 Respiratory 18 16 19 Rate Blood Pressure 157/72 (mmHg) O2 Sat by Pulse 99 99 96 Oximetry 11/29/16 11/29/16 11/29/16 08:30 09:00 09:30 Temperature Pulse Rate 73 77 Respiratory 28 21 Rate Blood Pressure 153/62 144/60 156/50 (mmHg) O2 Sat by Pulse 99 95 Oximetry 11/29/16 11/29/16 11/29/16 10:00 10:03 10:30 Temperature Pulse Rate 83 84 82 Respiratory 24 24 27 Rate Blood Pressure 148/51 166/54 (mmHg) O2 Sat by Pulse 94 94 95 Oximetry 11/29/16 11/29/16 11/29/16 11:00 11:30 11:42 Temperature Pulse Rate 80 79 Respiratory 23 25 25 Rate Blood Pressure 149/54 147/59 (mmHg) O2 Sat by Pulse 96 95 Oximetry 11/29/16 11/29/16 11/29/16 12:00 12:30 13:00 Temperature 98.8 F Pulse Rate 82 67 79 Respiratory 20 22 20 Rate Blood Pressure 145/54 151/67 (mmHg) O2 Sat by Pulse 97 97 97 Oximetry 11/29/16 11/29/16 11/29/16 13:30 13:59 14:30 Temperature Pulse Rate 83 111 78 Respiratory 24 23 21 Rate Blood Pressure 146/61 145/55 (mmHg) O2 Sat by Pulse 93 98 99 Oximetry 11/29/16 11/29/16 11/29/16 15:00 15:30 16:00 Temperature 98.6 F Pulse Rate 79 75 82 Respiratory 22 24 19 Rate Blood Pressure 146/53 144/55 143/78 (mmHg) O2 Sat by Pulse 97 97 96 Oximetry 11/29/16 11/29/16 11/29/16 16:30 17:00 17:30 Temperature Pulse Rate 72 74 Respiratory 18 18 Rate Blood Pressure 155/47 150/62 (mmHg) O2 Sat by Pulse 94 98 Oximetry 11/29/16 11/29/16 11/29/16 18:00 18:30 19:00 Temperature Pulse Rate 80 79 Respiratory 20 24 24 Rate Blood Pressure 144/51 159/59 (mmHg) O2 Sat by Pulse 98 97 Oximetry 11/29/16 11/29/16 11/29/16 19:13 19:30 20:00 Temperature 99.8 F Pulse Rate 83 79 79 Respiratory 24 22 22 Rate Blood Pressure 151/60 131/53 149/61 (mmHg) O2 Sat by Pulse 92 96 98 Oximetry 11/29/16 11/29/16 11/29/16 20:30 21:00 21:30 Temperature Pulse Rate 82 80 Respiratory 26 24 22 Rate Blood Pressure 141/49 141/54 (mmHg) O2 Sat by Pulse 94 94 Oximetry 11/29/16 11/29/16 11/29/16 22:00 22:30 23:00 Temperature Pulse Rate 80 76 77 Respiratory 17 22 23 Rate Blood Pressure 138/53 146/54 140/60 (mmHg) O2 Sat by Pulse 96 96 95 Oximetry 11/29/16 11/30/16 11/30/16 23:30 00:00 00:01 Temperature 99 F Pulse Rate 78 77 Respiratory 21 19 21 Rate Blood Pressure 139/62 137/52 (mmHg) O2 Sat by Pulse 98 95 98 Oximetry 11/30/16 11/30/16 11/30/16 00:43 01:00 02:00 Temperature Pulse Rate 77 74 Respiratory 23 22 Rate Blood Pressure (mmHg) O2 Sat by Pulse 98 95 97 Oximetry 11/30/16 11/30/16 11/30/16 03:00 03:48 04:00 Temperature 98.2 F Pulse Rate 71 69 Respiratory 18 18 17 Rate Blood Pressure 139/54 117/54 (mmHg) O2 Sat by Pulse 95 95 Oximetry 11/30/16 11/30/16 05:00 06:00 Temperature Pulse Rate 76 68 Respiratory 16 17 Rate Blood Pressure 134/97 145/59 (mmHg) O2 Sat by Pulse 93 94 Oximetry - Intake and Output Intake and Output: Intake & Output 11/27/16 11/28/16 11/29/16 11/30/16 11:59 11:59 11:59 11:59 Intake Total 1266 2251 1661 500 Output Total 3075 1650 3250 2450 Balance -1809 601 -1589 -1950 Weight 191 lb 12.835 oz 187 lb 9.814 oz 189 lb 6.033 oz 185 lb 6.54 oz Intake: IV Fluids 1147 885 129 D5W 1/2 NS 20 meq KCL 800 NS (0.9%) 1143 85 129 IVPB 122 D5W 1/2 NS 20 meq KCL 122 Medicated IV 119 184 232 CARDIZEM 119 184 232 Oral 1060 1300 500 Output: Urine 3075 1650 Bray 3250 2450 Other: Estimated Stool Amount Medium ADLs: Meal Record Start: 11/26/16 18: 45 Freq: 09,13,18 Status: Active Document 11/27/16 09:00 [id number] (Rec: 11/27/16 09:13 [id number] ICU-C20) Document 11/27/16 13:00 [id number] (Rec: 11/27/16 16:33 [id number] ICU-C07) Document 11/27/16 18:00 [id number] (Rec: 11/27/16 19:40 [id number] ICU-C07) Document 11/28/16 09:00 [id number] (Rec: 11/28/16 11:00 [id number] ICU-C07) Document 11/28/16 13:00 [id number] (Rec: 11/28/16 16:11 [id number] ICU-C14) Document 11/28/16 18:00 [id number] (Rec: 11/28/16 18:30 [id number] ICU-C07) Document 11/29/16 09:00 [id number] (Rec: 11/29/16 09:28 [id number] ICU-C06) Document 11/29/16 13:00 [id number] (Rec: 11/29/16 13:59 [id number] ICU-C06) Intake and Output Start: 11/26/16 16: 24 Freq: 06,14,2200 Status: Active Document 11/27/16 06:00 [id number] (Rec: 11/27/16 06:50 [id number] ICU-C07) Document 11/27/16 08:00 [id number] (Rec: 11/27/16 16:26 [id number] ICU-C07) Document 11/27/16 09:00 [id number] (Rec: 11/27/16 16:26 [id number] ICU-C07) Document 11/27/16 09:39 [id number] (Rec: 11/27/16 09:39 [id number] ICU-C20) Document 11/27/16 10:36 [id number] (Rec: 11/27/16 10:36 [id number] ICU-M21) Document 11/27/16 14:00 [id number] (Rec: 11/27/16 14:29 [id number] ICU-C20) Document 11/27/16 14:00 [id number] (Rec: 11/27/16 16:28 [id number] ICU-C07) Document 11/27/16 18:26 [id number] (Rec: 11/27/16 18:26 [id number] ICU-C20) Document 11/27/16 20:13 [id number] (Rec: 11/27/16 20:13 [id number] ICU-C14) Document 11/27/16 22:00 [id number] (Rec: 11/28/16 00:15 [id number] ICU-C14) Document 11/28/16 06:00 [id number] (Rec: 11/28/16 06:14 [id number] ICU-C16) Document 11/28/16 14:00 [id number] (Rec: 11/28/16 14:46 [id number] ICU-C14) Document 11/28/16 21:57 [id number] (Rec: 11/28/16 21:58 [id number] ICU-C16) Document 11/29/16 05:52 [id number] (Rec: 11/29/16 05:53 [id number] ICU-C06) Document 11/29/16 13:49 [id number] (Rec: 11/29/16 13:49 [id number] ICU-C20) Document 11/29/16 22:00 [id number] (Rec: 11/29/16 22:00 [id number] ICU-C12) Document 11/30/16 06:00 [id number] (Rec: 11/30/16 06:18 [id number] ICU-C07) - Physical Exam General Physical Exam Comment: No acute distress, warm and well perfused, hemodyamincally stable General: No Cyanosis, No Anemia, No Jaundice, No Lymphadenopathy, No Clubbing Lungs and Chest: Yes: Chest Expansion Full, Chest Expansion Symetrica, Vessicular Breath Sounds - diminished breath sounds at bases. No: Percussion Note Resonant - some dullness at bases, Crackles, Wheezes, Respiratory Distress , Use of Accessory Muscles Heart Rate and Rhythm: Regular JVP: Elevated Additional Cardiovascular: Yes: Normal Heart Sounds. No: Heart Murmur, Pedal Edema Abdominal Exam: Yes: Soft, Bowel Sounds Present. No: Distention, Abdominal Mass , Abdominal Tenderness - Neuro Orientation: A/O x3 Speech: Normal Results - Results Lab Results: Laboratory Results - last 24 hr 11/29/16 11/29/16 11/29/16 08:02 12:11 17:13 WBC RBC Hgb Hct MCV MCH MCHC RDW Plt Count MPV Neut % (Auto) Lymph % (Auto) Alexander % (Auto) Eos % (Auto) Baso % (Auto) Absolute Neuts (auto) Absolute Lymphs (auto) Absolute Monos (auto) Absolute Eos (auto) Absolute Basos (auto) Absolute Nucleated RBC Nucleated RBC % Sodium Potassium Chloride Carbon Dioxide Anion Gap BUN Creatinine Est GFR ( Amer) Est GFR (Non-Af Amer) BUN/Creatinine Ratio Glucose POC Glucose (mg/dL) 170 H 234 H 321 H Calcium Magnesium C-Reactive Protein 11/29/16 11/30/16 11/30/16 20:38 05:35 05:35 WBC 10.5 RBC 3.73 L Hgb 11.0 L Hct 33 L MCV 89 MCH 30 MCHC 33 RDW 14 Plt Count 300 MPV 8 Neut % (Auto) 59.6 Lymph % (Auto) 25.8 Alexander % (Auto) 12.4 H Eos % (Auto) 1.3 Baso % (Auto) 0.9 Absolute Neuts (auto) 6.3 Absolute Lymphs (auto) 2.7 Absolute Monos (auto) 1.3 H Absolute Eos (auto) 0.1 Absolute Basos (auto) 0.1 Absolute Nucleated RBC 0.01 Nucleated RBC % 0.1 Sodium 134 Potassium 4.5 Chloride 97 L Carbon Dioxide 34 H Anion Gap 3 BUN 12 Creatinine 0.62 Est GFR ( Amer) 123.5 Est GFR (Non-Af Amer) 96.0 BUN/Creatinine Ratio 19.4 Glucose 126 H POC Glucose (mg/dL) 275 H Calcium 8.2 L Magnesium 1.6 L C-Reactive Protein 63.75 H Assessment - Problem List Assessment: Patient Problems Asymmetric septal hypertrophy (Acute) Atrial flutter (Acute) Congestive cardiac failure (Acute) Dyspnea (Acute) Backache (Chronic) Diabetes mellitus type 2 (Chronic) Essential hypertension (Chronic) Gastroesophageal reflux disease (Chronic) Hypercholesterolemia (Chronic) Left bundle branch block (Chronic) Microalbuminuria (Chronic) Neuropathy (Chronic) Obesity (Chronic) Retinopathy (Chronic) Plan: Asymmetric septal hypertrophy (Acute) Atrial flutter (Acute)Congestive cardiac failure (Acute)Dyspnea (Acute) She is recovering. She no longer requires a telemetry bed. I will remove her bray catheter. She will have another 24 hours of parenteral furosemide. Backache (Chronic) Exacerbated today as she has been out of bed Diabetes mellitus type 2 (Chronic) I will change her insulin: carb ratio to 1/5 Essential hypertension (Chronic) stable Gastroesophageal reflux disease (Chronic) secondary diagnosis Hypercholesterolemia (Chronic) secondary diagnosis Left bundle branch block (Chronic) secondary diagnosis Microalbuminuria (Chronic) secondary diagnosis Neuropathy (Chronic) secondary diagnosis Obesity (Chronic) secondary diagnosis Retinopathy (Chronic)secondary diagnosis I will transfer her to a telemetry bed. Physical therapy will mobilize her and I think we will be able to stop her parenteral diuretics tomorrow. I note her CRP is higher, but there is as yet no signs of infection. Her WBC are coming down. I discuss this with the patient and she agrees with this plan
[2016-11-30] MEDS: Insulin LISPRO* 1 UNITS UNIT SUBCUT SCH ×9 (07:26→22:48)
[2016-11-30] MEDS: traMADol TAB* 50 MG PO SCH (08:57)
[2016-11-30] MEDS: Potassium Chlor TAB* 20 MEQ TAB.ER PO SCH ×3 (08:57→22:59)
[2016-11-30] MEDS: Metoprolol Succinate XL TAB* 50 MG PO SCH (08:57)
[2016-11-30] MEDS: DULoxetine DR CAP* 30 MG CAP.DR PO SCH (08:58)
[2016-11-30] MEDS: Rivaroxaban TAB(*) 20 MG TAB PO SCH (08:58)
[2016-11-30] MEDS: Docusate CAP* 100 MG PO SCH ×2 (08:58→22:59)
[2016-11-30] MEDS: Atorvastatin* 80 MG TAB PO SCH (08:58)
[2016-11-30] MEDS: Furosemide IV* 10 MG/ML 10 ML VIAL (100 MG) IV SCH ×2 (08:58→17:55)
[2016-11-30] MEDS: Aspirin EC Low Dose* 81 MG TAB.EC PO SCH (08:58)
[2016-11-30] MEDS: Magnesium Oxide TAB* 400 MG PO SCH ×2 (08:58→22:59)
[2016-11-30] MEDS: Cyanocobalamin TAB* 500 MCG PO SCH (08:58)
[2016-11-30] MEDS: Insulin GLARGINE(*) 1 UNITS UNIT SUBCUT SCH ×2 (10:52→23:10)
[2016-12-01] MEDS: Levalbuterol 1.25MG/0.5ML NEB INH SCH ×4 (01:53→19:39)
[2016-12-01 06:37] LABS: Hematocrit 35 % (35-47); Hemoglobin 11.7 g/dl (12.0-16.0); Mean Corpuscular HGB Conc 34 g/dl (31-36); Mean Corpuscular Hemoglobin 30 pg (27-31); Mean Corpuscular Volume 90 fL (80-97); Mean Platelet Volume 8 um3 (7.4-10.4); Red Blood Count 3.89 10^6/ul (4.0-5.4); Red Cell Distribution Width 14 % (10.5-15); White Blood Count 9.8 10^3/ul (3.5-10.8)
[2016-12-01 06:44] LABS: BUN/Creatinine Ratio 22.2 (8-20); C Reactive Protein 96.4 mg/L (< 5.00); Calcium 8.6 mg/dL (8.6-10.3); EGFR African American 144.8 (>60); EGFR Non-African American 112.6 (>60)
[2016-12-01] MEDS: Insulin LISPRO* 1 UNITS UNIT SUBCUT SCH ×6 (07:30→17:56)
--- NOTE | 2016-12-01 08:29 | PN ---
Subjective - Subjective Reason for Note: Progress Note History: She is improving - no further dyspnea, palpitations or chest pressure. She is urinating now her bray is out. However, she needs more mobilization. Her low back pain is improved today with PT. Her diabetic control is improving Active Problems: Active Problems Asymmetric septal hypertrophy (Acute) Atrial flutter (Acute) I48.92 Congestive cardiac failure (Acute) I50.9 Dyspnea (Acute) R06.00 Backache (Chronic) M54.9 Diabetes mellitus type 2 (Chronic) E11.9 Essential hypertension (Chronic) I10 Gastroesophageal reflux disease (Chronic) K21.9 Hypercholesterolemia (Chronic) E78.0 Left bundle branch block (Chronic) I44.7 Microalbuminuria (Chronic) R80.9 Neuropathy (Chronic) G62.9 Obesity (Chronic) E66.9 Retinopathy (Chronic) H35.00 Current Medications: Current Medications Acetaminophen (Tylenol Tab*) 650 mg PO Q4H PRN PRN Reason: FEVER/PAIN Last Admin: 11/30/16 23:13 Dose: 650 mg Albuterol (Ventolin 2.5 Mg/3 Ml Neb.Courtney*) 2.5 mg INH Q2H PRN PRN Reason: . Aspirin (Aspirin Ec Low Dose*) 81 mg PO QAM [facility] Last Admin: 11/30/16 08:58 Dose: 81 mg Atorvastatin Calcium (Lipitor*) 80 mg PO DAILY [facility] Last Admin: 11/30/16 08:58 Dose: 80 mg Cyanocobalamin (Vitamin B12 Tab*) 1,000 mcg PO DAILY [facility] Last Admin: 11/30/16 08:58 Dose: 1,000 mcg Dextrose (D50w Syringe 50 Ml*) 12.5 gm IV PUSH .FOR FS < 60 - SS PRN PRN Reason: FS < 60 Docusate Sodium (Colace Cap*) 100 mg PO BID [facility] Last Admin: 11/30/16 22:59 Dose: 100 mg Duloxetine HCl (Cymbalta Cap*) 30 mg PO DAILY [facility] Last Admin: 11/30/16 08:58 Dose: 30 mg Furosemide (Lasix Iv*) 60 mg IV 0800,1700 [facility] Last Admin: 11/30/16 17:55 Dose: 60 mg Insulin Glargine (Lantus(*)) 20 units SUBCUT Q12H [facility] Last Admin: 11/30/16 23:10 Dose: 20 units Insulin Human Lispro (Humalog*) 0 units SUBCUT AC [facility] PRN Reason: Protocol Last Admin: 11/30/16 17:55 Dose: 4 units Insulin Human Lispro (Humalog*) 0 units SUBCUT ACHS [facility] PRN Reason: Protocol Last Admin: 12/01/16 07:30 Dose: Not Given Levalbuterol HCl (Xopenex 1.25 Mg/0.5 Ml Neb.Courtney*) 1.25 mg INH [id number] AWAKE [facility] Last Admin: 12/01/16 07:15 Dose: 1.25 mg Magnesium Oxide (Magox 400 Tab*) 800 mg PO BID [facility] Last Admin: 11/30/16 22:59 Dose: 800 mg Metoprolol Succinate (Toprol Xl Tab*) 50 mg PO DAILY [facility] Last Admin: 11/30/16 08:57 Dose: 50 mg Potassium Chloride (Klor Con Er Tab*) 20 meq PO TID [facility] Last Admin: 11/30/16 22:59 Dose: 20 meq Rivaroxaban (Xarelto (*)) 20 mg PO DAILY [facility] Last Admin: 11/30/16 08:58 Dose: 20 mg Temazepam (Restoril Cap*) 15 mg PO BEDTIME PRN PRN Reason: INSOMNIA Last Admin: 11/27/16 21:20 Dose: 15 mg Tramadol HCl (Ultram*) 50 mg PO DAILY [facility] Last Admin: 11/30/16 08:57 Dose: 50 mg Home Medications: Home Medications Medication Instructions Recorded Confirmed Type zzInsulin GLARGINE(*) [Lantus(*)] 30 units SUBCUT BID 02/15/13 11/26/16 History zzInsulin inj LISPRO* [Humalog*] 20 units SUBCUT BID WITH MEALS MDD 02/15/1304/07 History 50 units Metoprolol Succinate XL TAB* 50 mg PO DAILY 06/08/13 11/26/16 History [Toprol XL TAB*] B-Complex Vitamins [Vitamin 1 tab PO DAILY 08/21/13 11/26/16 History B-Complex] Albuterol/Ipratropium INH(NF) 1 puff INH QID PRN 12/18/13 11/26/16 History [Combivent Inhaler(NF)] Cyanocobalamin TAB* [Vitamin B12 1,000 mcg PO DAILY 12/18/13 11/26/16 History TAB*] Fluticasone HFA 220 mcg(NF) 2 puff PO BID 12/18/13 11/26/16 History [Flovent Hfa 220 Mcg(NF)] Hydrochlorothiazide TAB* 25 mg PO QAM 12/18/13 11/26/16 History [Hydrodiuril TAB*] Multivitamins/Minerals TAB* [Thera 1 tab PO DAILY 12/18/13 11/26/16 History M Plus TAB*] Orphenadrine Citrate [Orphenadrine 100 mg PO DAILY 02/19/14 11/26/16 History Citrate ER] Aspirin EC Low Dose* [Ecotrin EC 81 mg PO QAM 07/05/15 11/26/16 History Low Dose*] Cilostazol TAB* [Pletal TAB*] 100 mg PO BID 07/05/15 11/26/16 History Glucagon (Rdna) [Glucagon 1 mg INJ ONCE PRN 07/05/15 11/26/16 History Emergency Kit] Quinapril (NF) [Accupril (NF)] 40 mg PO DAILY 07/05/15 11/26/16 History metFORMIN* [Glucophage*] 1,000 mg PO BID 07/05/15 11/26/[address] CAP* [Cymbalta CAP*] 30 mg PO DAILY 01/20/16 11/26/16 History Ondansetron TAB* [Zofran Tab*] 8 mg PO Q6H PRN 01/20/16 11/26/16 History Atorvastatin* [Lipitor*] 80 mg PO DAILY 11/26/16 11/26/16 History Isosorbide Mononitrate ER TAB* 30 mg PO DAILY 11/26/16 11/26/16 History [Imdur ER TAB*] Magnesium Chloride EC TAB* [Slow 64 mg PO DAILY 11/26/16 11/26/16 History Mag EC TAB*] Metoclopramide TAB* [Reglan TAB*] 10 mg PO Q8H PRN 11/26/16 11/26/16 History Naproxen Sodium [Sm All Day Relief] 220 mg PO Q8HR PRN 11/26/16 11/26/16 History Hlbwh-7-Pmni Ethyl Esters (NF) 1 gm PO DAILY 11/26/16 11/26/16 History [Lovaza (NF)] traMADol TAB* [Ultram*] 50 mg PO DAILY 11/26/16 11/26/16 History Allergies: Allergies Allergy/AdvReac Type Severity Reaction Status Date / Time Morphine AdvReac Dizziness Verified 11/26/16 11:26 Objective - Vital Signs Vital Signs: Vital Signs 11/30/16 11/30/16 11/30/16 09:00 10:00 10:31 Temperature Pulse Rate 83 78 Respiratory 19 20 Rate Blood Pressure (mmHg) O2 Sat by Pulse 95 98 97 Oximetry 11/30/16 11/30/16 11/30/16 10:38 13:17 16:00 Temperature 98.3 F 98.3 F Pulse Rate 73 71 71 Respiratory 18 16 18 Rate Blood Pressure 153/56 139/57 (mmHg) O2 Sat by Pulse 93 93 97 Oximetry 11/30/16 11/30/16 11/30/16 19:59 20:00 20:05 Temperature Pulse Rate 88 Respiratory 20 Rate Blood Pressure (mmHg) O2 Sat by Pulse 95 94 Oximetry 11/30/16 11/30/16 12/01/16 20:23 23:48 00:00 Temperature 98.1 F 98.0 F Pulse Rate 78 85 Respiratory 18 20 Rate Blood Pressure 148/58 161/61 (mmHg) O2 Sat by Pulse 96 96 96 Oximetry 12/01/16 12/01/16 12/01/16 03:16 07:16 07:17 Temperature 98.0 F 98.3 F Pulse Rate 69 76 82 Respiratory 16 77 18 Rate Blood Pressure 149/62 155/67 (mmHg) O2 Sat by Pulse 96 94 96 Oximetry - Intake and Output Intake and Output: Intake & Output 11/28/16 11/29/16 11/30/16 12/01/16 11:59 11:59 11:59 11:59 Intake Total 2251 1436 326 9209 Output Total 1650 3250 2700 2900 Balance 601 -1589 -2200 -1560 Weight 187 lb 9.814 oz 189 lb 6.033 oz 185 lb 6.54 oz 180 lb 1.6 oz Intake: IV Fluids 885 129 D5W 1/2 NS 20 meq KCL 800 NS (0.9%) 85 129 IVPB 122 D5W 1/2 NS 20 meq KCL 122 Medicated IV 184 232 CARDIZEM 184 232 Oral 1060 5675 579 2614 Output: Urine 1650 2900 Bray 3250 2700 Other: # Bowel Movements 0 Estimated Stool Amount Medium Medium # Voids 1 ADLs: Meal Record Start: 11/26/16 18: 45 Freq: 09,13,18 Status: Inactive Document 11/27/16 09:00 [id number] (Rec: 11/27/16 09:13 [id number] ICU-C20) Document 11/27/16 13:00 [id number] (Rec: 11/27/16 16:33 [id number] ICU-C07) Document 11/27/16 18:00 [id number] (Rec: 11/27/16 19:40 [id number] ICU-C07) Document 11/28/16 09:00 [id number] (Rec: 11/28/16 11:00 [id number] ICU-C07) Document 11/28/16 13:00 [id number] (Rec: 11/28/16 16:11 [id number] ICU-C14) Document 11/28/16 18:00 [id number] (Rec: 11/28/16 18:30 [id number] ICU-C07) Document 11/29/16 09:00 [id number] (Rec: 11/29/16 09:28 [id number] ICU-C06) Document 11/29/16 13:00 [id number] (Rec: 11/29/16 13:59 [id number] ICU-C06) ADLs: Meal Record Start: 11/30/16 10: 37 Freq: DAILY@0900,1400,1800 Status: Active Created 11/30/16 10:37 [id number] (Rec: 11/30/16 10:37 [id number] TELE-L03) Document 11/30/16 14:00 [id number] (Rec: 11/30/16 15:20 [id number] TELE-C01) Document 11/30/16 18:00 [id number] (Rec: 11/30/16 22:37 [id number] TELE-C01) Intake and Output Start: 11/26/16 16: 24 Freq: 06,14,2200 Status: Active Document 11/27/16 06:00 [id number] (Rec: 11/27/16 06:50 [id number] ICU-C07) Document 11/27/16 08:00 [id number] (Rec: 11/27/16 16:26 [id number] ICU-C07) Document 11/27/16 09:00 TVQ3464 (Rec: 11/27/16 16:26 ROS5620 ICU-C07) Document 11/27/16 09:39 [id number] (Rec: 11/27/16 09:39 [id number] ICU-C20) Document 11/27/16 10:36 [id number] (Rec: 11/27/16 10:36 [id number] ICU-M21) Document 11/27/16 14:00 [id number] (Rec: 11/27/16 14:29 [id number] ICU-C20) Document 11/27/16 14:00 [id number] (Rec: 11/27/16 16:28 [id number] ICU-C07) Document 11/27/16 18:26 [id number] (Rec: 11/27/16 18:26 [id number] ICU-C20) Document 11/27/16 20:13 GMH0458 (Rec: 11/27/16 20:13 DQS6211 ICU-C14) Document 11/27/16 22:00 CFT2233 (Rec: 11/28/16 00:15 [id number] ICU-C14) Document 11/28/16 06:00 YNK3097 (Rec: 11/28/16 06:14 SPS8712 ICU-C16) Document 11/28/16 14:00 [id number] (Rec: 11/28/16 14:46 [id number] ICU-C14) Document 11/28/16 21:57 [id number] (Rec: 11/28/16 21:58 [id number] ICU-C16) Document 11/29/16 05:52 [id number] (Rec: 11/29/16 05:53 [id number] ICU-C06) Document 11/29/16 13:49 [id number] (Rec: 11/29/16 13:49 [id number] ICU-C20) Document 11/29/16 22:00 [id number] (Rec: 11/29/16 22:00 DMW3254 ICU-C12) Document 11/30/16 06:00 [id number] (Rec: 11/30/16 06:18 [id number] ICU-C07) Document 11/30/16 09:09 [id number] (Rec: 11/30/16 09:09 [id number] ICU-M21) Document 11/30/16 14:00 CQL8522 (Rec: 11/30/16 15:20 [id number] TELE-C01) Document 11/30/16 22:00 IEJ6112 (Rec: 11/30/16 22:40 [id number] TELE-C01) Document 12/01/16 06:00 TIK9465 (Rec: 12/01/16 06:23 [id number] TELE-C34) Intake and Output Start: 11/30/16 10: 37 Freq: DAILY@0600,1400,2200 Status: Active Created 11/30/16 10:37 [id number] (Rec: 11/30/16 10:37 [id number] TELE-L03) Document 11/30/16 14:00 [id number] (Rec: 11/30/16 15:20 [id number] TELE-C01) Document 11/30/16 22:00 [id number] (Rec: 11/30/16 22:40 UBR9089 TELE-C01) Document 12/01/16 06:00 [id number] (Rec: 12/01/16 06:23 [id number] TELE-C34) - Physical Exam General: No Cyanosis, No Anemia, No Jaundice, No Lymphadenopathy, No Clubbing Skin: Normal: Rash Lungs and Chest: Yes: Chest Expansion Full, Chest Expansion Symetrica. No: Percussion Note Resonant - Dull at bases, Vessicular Breath Sounds - Reduced air entry both bases, Wheezes, Respiratory Distress, Use of Accessory Muscles Heart Rate and Rhythm: Regular JVP: Not Elevated - 6 cm Additional Cardiovascular: Yes: Normal Heart Sounds. No: Heart Murmur, Pedal Edema Abdominal Exam: Yes: Soft, Bowel Sounds Present. No: Distention, Abdominal Mass , Hepatomegaly, Abdominal Tenderness - Extremities Cranial Nerves II-XII Intact: Yes Limbs: Normal Power - Neuro Orientation: A/O x3 Speech: Expressive Results - Results Lab Results: Laboratory Results - last 24 hr 11/30/16 11/30/16 11/30/16 11:53 16:51 19:51 WBC RBC Hgb Hct MCV MCH MCHC RDW Plt Count MPV Neut % (Auto) Lymph % (Auto) [place] % (Auto) Eos % (Auto) Baso % (Auto) Absolute Neuts (auto) Absolute Lymphs (auto) Absolute Monos (auto) Absolute Eos (auto) Absolute Basos (auto) Absolute Nucleated RBC Nucleated RBC % Sodium Potassium Chloride Carbon Dioxide Anion Gap BUN Creatinine Est GFR ( Amer) Est GFR (Non-Af Amer) BUN/Creatinine Ratio Glucose POC Glucose (mg/dL) 248 H 255 H 154 H Calcium C-Reactive Protein 12/01/16 12/01/16 12/01/16 05:50 05:50 07:30 WBC 9.8 RBC 3.89 L Hgb 11.7 L Hct 35 MCV 90 MCH 30 MCHC 34 RDW 14 Plt Count 319 MPV 8 Neut % (Auto) 60.0 Lymph % (Auto) 23.9 L [place] % (Auto) 13.4 H Eos % (Auto) 2.0 Baso % (Auto) 0.7 Absolute Neuts (auto) 5.9 Absolute Lymphs (auto) 2.4 Absolute Monos (auto) 1.3 H Absolute Eos (auto) 0.2 Absolute Basos (auto) 0.1 Absolute Nucleated RBC 0 Nucleated RBC % 0 Sodium 134 Potassium 4.0 Chloride 97 L Carbon Dioxide 31 Anion Gap 6 BUN 12 Creatinine 0.54 Est GFR ( Amer) 144.8 Est GFR (Non-Af Amer) 112.6 BUN/Creatinine Ratio 22.2 H Glucose 112 H POC Glucose (mg/dL) 130 H Calcium 8.6 C-Reactive Protein 96.40 H Assessment - Problem List Assessment: Patient Problems Asymmetric septal hypertrophy (Acute) Atrial flutter (Acute) Congestive cardiac failure (Acute) Dyspnea (Acute) Backache (Chronic) Diabetes mellitus type 2 (Chronic) Essential hypertension (Chronic) Gastroesophageal reflux disease (Chronic) Hypercholesterolemia (Chronic) Left bundle branch block (Chronic) Microalbuminuria (Chronic) Neuropathy (Chronic) Obesity (Chronic) Retinopathy (Chronic) Plan: Atrial flutter (Acute) Asymmetric septal hypertrophy (Acute)Congestive cardiac failure (Acute)Dyspnea (Acute) She is close to baseline. I will change her to oral diuretics today and mobilize her with a plan for discharge home tomorrow Backache (Chronic) improved Diabetes mellitus type 2 (Chronic) improved control Essential hypertension (Chronic) Large pulse pressure, systolic high, diastolic low - maintain current Rx. Diltiazem is not a strong antihypertensive - but we can increase the dose over time as an outpatient Gastroesophageal reflux disease (Chronic) inactive Hypercholesterolemia (Chronic) secondary diagnosis Left bundle branch block (Chronic) secondary diagnosis Microalbuminuria (Chronic) secondary diagnosis Neuropathy (Chronic) secondary diagnosis Obesity (Chronic) secondary diagnosis Retinopathy (Chronic)secondary diagnosis I spoke to both the patient and her and they agree with this management plan
[2016-12-01] MEDS: Furosemide IV* 10 MG/ML 10 ML VIAL (100 MG) IV SCH (08:52)
[2016-12-01] MEDS: Cyanocobalamin TAB* 500 MCG PO SCH (09:12)
[2016-12-01] MEDS: Potassium Chlor TAB* 20 MEQ TAB.ER PO SCH ×3 (09:12→21:24)
[2016-12-01] MEDS: DULoxetine DR CAP* 30 MG CAP.DR PO SCH (09:12)
[2016-12-01] MEDS: Metoprolol Succinate XL TAB* 50 MG PO SCH (09:12)
[2016-12-01] MEDS: Rivaroxaban TAB(*) 20 MG TAB PO SCH (09:12)
[2016-12-01] MEDS: Docusate CAP* 100 MG PO SCH ×2 (09:12→21:25)
[2016-12-01] MEDS: Magnesium Oxide TAB* 400 MG PO SCH ×2 (09:12→21:24)
[2016-12-01] MEDS: Atorvastatin* 80 MG TAB PO SCH (09:12)
[2016-12-01] MEDS: Aspirin EC Low Dose* 81 MG TAB.EC PO SCH (09:12)
[2016-12-01] MEDS: traMADol TAB* 50 MG PO SCH (09:13)
[2016-12-01] MEDS: Insulin GLARGINE(*) 1 UNITS UNIT SUBCUT SCH ×2 (09:15→21:26)
[2016-12-01] MEDS ORDERED: Furosemide TAB* 40 MG ONE (09:18)
[2016-12-01] MEDS: Furosemide TAB* 40 MG PO SCH ×2 (09:21→17:56)
[2016-12-01] MEDS: Buffered Lidocaine 1% SYR 3ML* 3 ML/SYR SYRINGE INJ ONE ×2 (12:50→12:54)
[2016-12-01] MEDS: Acetaminophen TAB* 325 MG PO PRN (13:34)
[2016-12-02] MEDS: Levalbuterol 1.25MG/0.5ML NEB INH SCH ×2 (01:08→08:56)
[2016-12-02 05:23] LABS: Hematocrit 34 % (35-47); Hemoglobin 11.2 g/dl (12.0-16.0); Mean Corpuscular HGB Conc 33 g/dl (31-36); Mean Corpuscular Hemoglobin 30 pg (27-31); Mean Corpuscular Volume 89 fL (80-97); Mean Platelet Volume 8 um3 (7.4-10.4); Red Blood Count 3.81 10^6/ul (4.0-5.4); Red Cell Distribution Width 14 % (10.5-15); White Blood Count 8.1 10^3/ul (3.5-10.8)
[2016-12-02 05:45] LABS: BUN/Creatinine Ratio 18.5 (8-20); C Reactive Protein 68.02 mg/L (< 5.00); Calcium 8.6 mg/dL (8.6-10.3); EGFR African American 144.8 (>60); EGFR Non-African American 112.6 (>60); Potassium 4.1 mmol/L (3.5-5.0)
[2016-12-02] MEDS ORDERED: Insulin LISPRO* 1 UNITS UNIT SUBCUT SCH (07:30)
--- NOTE | 2016-12-02 08:08 | PN ---
Subjective - Subjective Reason for Note: Discharge Note History: Discharge summary: She is better - no dyspnea or paroxysmal nocturnal dyspnea. Walking a little. Doesn't need home O2. No dysrhythmia or chest pressure Active Problems: Active Problems Asymmetric septal hypertrophy (Acute) Atrial flutter (Acute) I48.92 Congestive cardiac failure (Acute) I50.9 Dyspnea (Acute) R06.00 Backache (Chronic) M54.9 Diabetes mellitus type 2 (Chronic) E11.9 Essential hypertension (Chronic) I10 Gastroesophageal reflux disease (Chronic) K21.9 Hypercholesterolemia (Chronic) E78.0 Left bundle branch block (Chronic) I44.7 Microalbuminuria (Chronic) R80.9 Neuropathy (Chronic) G62.9 Obesity (Chronic) E66.9 Retinopathy (Chronic) H35.00 Current Medications: Current Medications Acetaminophen (Tylenol Tab*) 650 mg PO Q4H PRN PRN Reason: FEVER/PAIN Last Admin: 12/01/16 13:34 Dose: 650 mg Albuterol (Ventolin 2.5 Mg/3 Ml Neb.Courtney*) 2.5 mg INH Q2H PRN PRN Reason: . Aspirin (Aspirin Ec Low Dose*) 81 mg PO QAM [facility] Last Admin: 12/01/16 09:12 Dose: 81 mg Atorvastatin Calcium (Lipitor*) 80 mg PO DAILY [facility] Last Admin: 12/01/16 09:12 Dose: 80 mg Cyanocobalamin (Vitamin B12 Tab*) 1,000 mcg PO DAILY [facility] Last Admin: 12/01/16 09:12 Dose: 1,000 mcg Dextrose (D50w Syringe 50 Ml*) 12.5 gm IV PUSH .FOR FS < 60 - SS PRN PRN Reason: FS < 60 Docusate Sodium (Colace Cap*) 100 mg PO BID [facility] Last Admin: 12/01/16 21:25 Dose: 100 mg Duloxetine HCl (Cymbalta Cap*) 30 mg PO DAILY [facility] Last Admin: 12/01/16 09:12 Dose: 30 mg Furosemide (Lasix Tab*) 40 mg PO DAILY [facility] Insulin Glargine (Lantus(*)) 20 units SUBCUT Q12H [facility] Last Admin: 12/01/16 21:26 Dose: 20 units Insulin Human Lispro (Humalog*) 0 units SUBCUT AC [facility] PRN Reason: Protocol Last Admin: 12/01/16 17:56 Dose: 4 units Insulin Human Lispro (Humalog*) 0 units SUBCUT AC [facility] PRN Reason: Protocol Levalbuterol HCl (Xopenex 1.25 Mg/0.5 Ml Neb.Courtney*) 1.25 mg INH [id number] AWAKE [facility] Last Admin: 12/02/16 01:08 Dose: 1.25 mg Magnesium Oxide (Magox 400 Tab*) 800 mg PO DAILY [facility] Metoprolol Succinate (Toprol Xl Tab*) 50 mg PO DAILY [facility] Last Admin: 12/01/16 09:12 Dose: 50 mg Potassium Chloride (Klor Con Er Tab*) 20 meq PO BID [facility] Rivaroxaban (Xarelto (*)) 20 mg PO DAILY [facility] Last Admin: 12/01/16 09:12 Dose: 20 mg Temazepam (Restoril Cap*) 15 mg PO BEDTIME PRN PRN Reason: INSOMNIA Last Admin: 11/27/16 21:20 Dose: 15 mg Tramadol HCl (Ultram*) 50 mg PO DAILY [facility] Last Admin: 12/01/16 09:13 Dose: 50 mg Home Medications: Home Medications Medication Instructions Recorded Confirmed Type zzInsulin GLARGINE(*) [zzLantus(*)] 30 units SUBCUT BID 02/15/13 11/26/16 History zzInsulin inj LISPRO* [zzHumaLOG 20 units SUBCUT BID WITH MEALS MDD 02/15/1304/07 History inj*] 50 units Metoprolol Succinate XL TAB* 50 mg PO DAILY 06/08/13 11/26/16 History [Toprol XL TAB*] B-Complex Vitamins [Vitamin 1 tab PO DAILY 08/21/13 11/26/16 History B-Complex] Albuterol/Ipratropium INH(NF) 1 puff INH QID PRN 12/18/13 11/26/16 History [Combivent Inhaler(NF)] Cyanocobalamin TAB* [Vitamin B12 1,000 mcg PO DAILY 12/18/13 11/26/16 History TAB*] Fluticasone HFA 220 mcg(NF) 2 puff PO BID 12/18/13 11/26/16 History [Flovent Hfa 220 Mcg(NF)] Hydrochlorothiazide TAB* 25 mg PO QAM 12/18/13 11/26/16 History [Hydrodiuril TAB*] Multivitamins/Minerals TAB* [Thera 1 tab PO DAILY 12/18/13 11/26/16 History M Plus TAB*] Orphenadrine Citrate [Orphenadrine 100 mg PO DAILY 02/19/14 11/26/16 History Citrate ER] Aspirin EC Low Dose* [Ecotrin EC 81 mg PO QAM 07/05/15 11/26/16 History Low Dose*] Cilostazol TAB* [Pletal TAB*] 100 mg PO BID 07/05/15 11/26/16 History Glucagon (Rdna) [Glucagon 1 mg INJ ONCE PRN 07/05/15 11/26/16 History Emergency Kit] Quinapril (NF) [Accupril (NF)] 40 mg PO DAILY 07/05/15 11/26/16 History metFORMIN* [Glucophage*] 1,000 mg PO BID 07/05/15 11/26/[address] CAP* [Cymbalta CAP*] 30 mg PO DAILY 01/20/16 11/26/16 History Ondansetron TAB* [Zofran Tab*] 8 mg PO Q6H PRN 01/20/16 11/26/16 History Atorvastatin* [Lipitor 80 MG*] 80 mg PO DAILY 11/26/16 11/26/16 History Isosorbide Mononitrate ER TAB* 30 mg PO DAILY 11/26/16 11/26/16 History [Imdur ER TAB*] Magnesium Chloride EC TAB* [Slow 64 mg PO DAILY 11/26/16 11/26/16 History Mag EC TAB*] Metoclopramide TAB* [Reglan TAB*] 10 mg PO Q8H PRN 11/26/16 11/26/16 History Naproxen Sodium [Sm All Day Relief] 220 mg PO Q8HR PRN 11/26/16 11/26/16 History Vheos-9-Giph Ethyl Esters (NF) 1 gm PO DAILY 11/26/16 11/26/16 History [Lovaza (NF)] traMADol TAB* [Ultram*] 50 mg PO DAILY 11/26/16 11/26/16 History Allergies: Allergies Allergy/AdvReac Type Severity Reaction Status Date / Time Morphine AdvReac Dizziness Verified 11/26/16 11:26 Objective - Vital Signs Vital Signs: Vital Signs 12/01/16 12/01/16 12/01/16 09:13 11:13 11:24 Temperature 98.3 F Pulse Rate 85 Respiratory 18 18 18 Rate Blood Pressure 172/67 (mmHg) O2 Sat by Pulse 99 Oximetry 12/01/16 12/01/16 12/01/16 14:00 15:39 16:00 Temperature 98.3 F Pulse Rate 82 71 Respiratory 14 16 Rate Blood Pressure 145/65 (mmHg) O2 Sat by Pulse 100 98 99 Oximetry 12/01/16 12/01/16 12/01/16 16:51 19:18 19:40 Temperature 98.3 F Pulse Rate 77 72 Respiratory 18 14 Rate Blood Pressure 146/48 (mmHg) O2 Sat by Pulse 94 93 100 Oximetry 12/01/16 12/02/16 12/02/16 20:00 00:00 00:05 Temperature 99.1 F Pulse Rate 71 83 Respiratory 14 16 Rate Blood Pressure 157/55 (mmHg) O2 Sat by Pulse 98 94 94 Oximetry 12/02/16 12/02/16 02:50 03:00 Temperature 98.1 F Pulse Rate 83 78 Respiratory 16 Rate Blood Pressure 182/58 148/51 (mmHg) O2 Sat by Pulse 91 Oximetry - Intake and Output Intake and Output: Intake & Output 11/29/16 11/30/16 12/01/16 12/02/16 11:59 11:59 11:59 11:59 Intake Total 6351 389 5640 1635 Output Total 3250 2700 3400 1550 Balance -1588 85 Weight 189 lb 6.033 oz 185 lb 6.54 oz 180 lb 1.6 oz Intake: IV Fluids 129 NS (0.9%) 129 Medicated IV 232 CARDIZEM 232 Oral 2637 219 9617 1635 Output: Urine 3400 1550 Santacruz 3250 2700 Other: Estimated Void Medium # Bowel Movements 0 0 Estimated Stool Amount Medium Small # Voids 1 2 ADLs: Meal Record Start: 11/26/16 18: 45 Freq: 09,13,18 Status: Inactive Document 11/27/16 09:00 [id number] (Rec: 11/27/16 09:13 [id number] ICU-C20) Document 11/27/16 13:00 [id number] (Rec: 11/27/16 16:33 [id number] ICU-C07) Document 11/27/16 18:00 [id number] (Rec: 11/27/16 19:40 [id number] ICU-C07) Document 11/28/16 09:00 [id number] (Rec: 11/28/16 11:00 [id number] ICU-C07) Document 11/28/16 13:00 [id number] (Rec: 11/28/16 16:11 [id number] ICU-C14) Document 11/28/16 18:00 [id number] (Rec: 11/28/16 18:30 [id number] ICU-C07) Document 11/29/16 09:00 [id number] (Rec: 11/29/16 09:28 [id number] ICU-C06) Document 11/29/16 13:00 [id number] (Rec: 11/29/16 13:59 [id number] ICU-C06) ADLs: Meal Record Start: 11/30/16 10: 37 Freq: DAILY@0900,1400,1800 Status: Active Created 11/30/16 10:37 [id number] (Rec: 11/30/16 10:37 [id number] TELE-L03) Document 11/30/16 14:00 [id number] (Rec: 11/30/16 15:20 [id number] TELE-C01) Document 11/30/16 18:00 [id number] (Rec: 11/30/16 22:37 [id number] TELE-C01) Document 12/01/16 09:00 [id number] (Rec: 12/01/16 09:35 WIH9596 TELE-C01) Document 12/01/16 14:00 [id number] (Rec: 12/01/16 14:14 AAJ1622 TELE-C07) Document 12/01/16 18:00 [id number] (Rec: 12/01/16 18:35 [id number] TELE-C01) Intake and Output Start: 11/26/16 16: 24 Freq: 06,14,2200 Status: Active Document 11/27/16 06:00 [id number] (Rec: 11/27/16 06:50 [id number] ICU-C07) Document 11/27/16 08:00 [id number] (Rec: 11/27/16 16:26 [id number] ICU-C07) Document 11/27/16 09:00 [id number] (Rec: 11/27/16 16:26 [id number] ICU-C07) Document 11/27/16 09:39 [id number] (Rec: 11/27/16 09:39 [id number] ICU-C20) Document 11/27/16 10:36 [id number] (Rec: 11/27/16 10:36 ASL9100 ICU-M21) Document 11/27/16 14:00 [id number] (Rec: 11/27/16 14:29 [id number] ICU-C20) Document 11/27/16 14:00 [id number] (Rec: 11/27/16 16:28 [id number] ICU-C07) Document 11/27/16 18:26 [id number] (Rec: 11/27/16 18:26 ZHS0106 ICU-C20) Document 11/27/16 20:13 [id number] (Rec: 11/27/16 20:13 HYG0825 ICU-C14) Document 11/27/16 22:00 [id number] (Rec: 11/28/16 00:15 BCU1583 ICU-C14) Document 11/28/16 06:00 [id number] (Rec: 11/28/16 06:14 [id number] ICU-C16) Document 11/28/16 14:00 [id number] (Rec: 11/28/16 14:46 LOY1674 ICU-C14) Document 11/28/16 21:57 [id number] (Rec: 11/28/16 21:58 HUG2127 ICU-C16) Document 11/29/16 05:52 [id number] (Rec: 11/29/16 05:53 [id number] ICU-C06) Document 11/29/16 13:49 [id number] (Rec: 11/29/16 13:49 UUL0791 ICU-C20) Document 11/29/16 22:00 [id number] (Rec: 11/29/16 22:00 IVH6449 ICU-C12) Document 11/30/16 06:00 LPG2543 (Rec: 11/30/16 06:18 PYP5620 ICU-C07) Document 11/30/16 09:09 DJU1297 (Rec: 11/30/16 09:09 JMC9036 ICU-M21) Document 11/30/16 14:00 VGX1079 (Rec: 11/30/16 15:20 BOB0638 TELE-C01) Document 11/30/16 22:00 [id number] (Rec: 11/30/16 22:40 [id number] TELE-C01) Document 12/01/16 06:00 [id number] (Rec: 12/01/16 06:23 LBX1941 TELE-C34) Document 12/01/16 14:00 JFL5944 (Rec: 12/01/16 14:14 [id number] TELE-C07) Document 12/01/16 18:59 [id number] (Rec: 12/01/16 18:59 NBW9496 TELE-C01) Document 12/01/16 22:00 [id number] (Rec: 12/01/16 22:36 QNO3498 TELE-C01) Document 12/02/16 06:00 [id number] (Rec: 12/02/16 07:03 [id number] TELE-C34) Intake and Output Start: 11/30/16 10: 37 Freq: DAILY@0600,1400,2200 Status: Active Created 11/30/16 10:37 [id number] (Rec: 11/30/16 10:37 JZX2272 TELE-L03) Document 11/30/16 14:00 BRM1494 (Rec: 11/30/16 15:20 VSB8783 TELE-C01) Document 11/30/16 22:00 [id number] (Rec: 11/30/16 22:40 LSC8566 TELE-C01) Document 12/01/16 06:00 [id number] (Rec: 12/01/16 06:23 [id number] TELE-C34) Document 12/01/16 14:00 [id number] (Rec: 12/01/16 14:14 [id number] TELE-C07) - Physical Exam General: No Cyanosis, No Anemia, No Jaundice, No Clubbing Lungs and Chest: Yes: Chest Expansion Full, Chest Expansion Symetrica, Percussion Note Resonant. No: Vessicular Breath Sounds - diminished air entry bases, Crackles, Wheezes, Respiratory Distress, Use of Accessory Muscles Heart Rate and Rhythm: Regular JVP: Not Elevated Additional Cardiovascular: Yes: Normal Heart Sounds. No: Heart Murmur, Pedal Edema Abdominal Exam: Yes: Soft. No: Distention, Abdominal Mass, Abdominal Tenderness - Extremities Cranial Nerves II-XII Intact: Yes - Neuro Orientation: A/O x3 Speech: Normal Results - Results Lab Results: Laboratory Results - last 24 hr 12/01/16 12/01/16 12/02/16 11:16 16:34 04:26 WBC 8.1 RBC 3.81 L Hgb 11.2 L Hct 34 L MCV 89 MCH 30 MCHC 33 RDW 14 Plt Count 321 MPV 8 Neut % (Auto) 51.9 Lymph % (Auto) 32.2 Gladwin % (Auto) 12.1 H Eos % (Auto) 2.8 Baso % (Auto) 1.0 Absolute Neuts (auto) 4.2 Absolute Lymphs (auto) 2.6 Absolute Monos (auto) 1.0 H Absolute Eos (auto) 0.2 Absolute Basos (auto) 0.1 Absolute Nucleated RBC 0 Nucleated RBC % 0 Sodium Potassium Chloride Carbon Dioxide Anion Gap BUN Creatinine Est GFR ( Amer) Est GFR (Non-Af Amer) BUN/Creatinine Ratio Glucose POC Glucose (mg/dL) 214 H 243 H Calcium C-Reactive Protein 12/02/16 12/02/16 04:26 07:41 WBC RBC Hgb Hct MCV MCH MCHC RDW Plt Count MPV Neut % (Auto) Lymph % (Auto) Gladwin % (Auto) Eos % (Auto) Baso % (Auto) Absolute Neuts (auto) Absolute Lymphs (auto) Absolute Monos (auto) Absolute Eos (auto) Absolute Basos (auto) Absolute Nucleated RBC Nucleated RBC % Sodium 135 Potassium 4.1 Chloride 98 L Carbon Dioxide 32 Anion Gap 5 BUN 10 Creatinine 0.54 Est GFR ( Amer) 144.8 Est GFR (Non-Af Amer) 112.6 BUN/Creatinine Ratio 18.5 Glucose 161 H POC Glucose (mg/dL) 170 H Calcium 8.6 C-Reactive Protein 68.02 H Assessment - Problem List Assessment: Patient Problems Asymmetric septal hypertrophy (Acute) Atrial flutter (Acute) Congestive cardiac failure (Acute) Dyspnea (Acute) Backache (Chronic) Diabetes mellitus type 2 (Chronic) Essential hypertension (Chronic) Gastroesophageal reflux disease (Chronic) Hypercholesterolemia (Chronic) Left bundle branch block (Chronic) Microalbuminuria (Chronic) Neuropathy (Chronic) Obesity (Chronic) Retinopathy (Chronic) Plan: Asymmetric septal hypertrophy (Acute)Atrial flutter (Acute)Congestive cardiac failure (Acute)Dyspnea (Acute) She is improved. I will maintain furosemide 40 mg qdaily as an outpatient until she has become a little more "dry". She is now on anticoagulation (xarelto) and diltiazem - both to prevent atrial flutter or the consequences (rapid rate/emboli) Backache (Chronic) baseline Diabetes mellitus type 2 (Chronic) Better control than usual Essential hypertension (Chronic) On target Gastroesophageal reflux disease (Chronic) secondary diagnosis Hypercholesterolemia (Chronic) secondary diagnosis Left bundle branch block (Chronic) secondary diagnosis Microalbuminuria (Chronic) secondary diagnosis Neuropathy (Chronic) secondary diagnosis Obesity (Chronic) secondary diagnosis Retinopathy (Chronic) secondary diagnosis She is ready for discharge. I will see her as an outpatient in a few days.
[2016-12-02 08:25] VITALS: BP 153/68
[2016-12-02] MEDS ORDERED: Magnesium Oxide TAB* 400 MG PO SCH (09:00)
[2016-12-02] MEDS ORDERED: Potassium Chlor TAB* 20 MEQ TAB.ER PO SCH (09:00)
[2016-12-02] MEDS ORDERED: Furosemide TAB* 40 MG PO SCH (09:00)
[2016-12-02] MEDS: Aspirin EC Low Dose* 81 MG TAB.EC PO SCH (09:13)
[2016-12-02] MEDS: Docusate CAP* 100 MG PO SCH (09:13)
[2016-12-02] MEDS: traMADol TAB* 50 MG PO SCH (09:13)
[2016-12-02] MEDS: Cyanocobalamin TAB* 500 MCG PO SCH (09:15)
[2016-12-02] MEDS: Metoprolol Succinate XL TAB* 50 MG PO SCH (09:15)
[2016-12-02] MEDS: DULoxetine DR CAP* 30 MG CAP.DR PO SCH (09:15)
[2016-12-02] MEDS: Atorvastatin* 80 MG TAB PO SCH (09:15)
[2016-12-02] MEDS: Insulin LISPRO* 1 UNITS UNIT SUBCUT SCH (09:16)
[2016-12-02] MEDS: Insulin GLARGINE(*) 1 UNITS UNIT SUBCUT SCH (09:16)
[2016-12-02] MEDS: Rivaroxaban TAB(*) 20 MG TAB PO SCH (09:41)
--- NOTE | 2016-12-03 14:41 | DS ---
DISCHARGE SUMMARY: DATE OF ADMISSION: 11/26/16 DATE OF DISCHARGE: 12/02/16 DISCHARGE DIAGNOSES: 1. Atrial flutter with rapid ventricular response. 2. Left bundle branch block. 3. Congestive cardiac failure with acute pulmonary edema. COMORBIDITIES: Asymmetrical septal hypertrophy, anticoagulation. SECONDARY DIAGNOSES: 1. Type 2 diabetes mellitus, poorly controlled. 2. Hypertension. 3. Dyslipidemia. 4. Remote history of rheumatic heart disease without major valvular damage. 5. Obesity. 6. Peripheral vascular disease. 7. Chronic pain syndrome. 8. Peripheral neuropathy. 9. Microalbuminuria. 10. Left bundle branch block. 11. Hypercholesterolemia. 12. Gastroesophageal reflux disease. 13. History of severe migraines. HISTORY: aMrie Russo is a 66-year-old right-handed white female, her presentation is documented both in Dr. Penny Lentz's admitting history and physical and in Dr. Taqueria Lama's consultation note, which are both part of the electronic medical record. In short, she describes having been more short of breath and unwell since around Angélica. About 5 days before admission, this became significantly worse with shortness of breath, weakness. She also had some chest pressure, but not pain. She describes some paroxysmal nocturnal dyspnea. She had a cough with some frothy sputum, no edema, extreme fatigue, and shortness of breath on minimal exertion. She had no sweats, fevers, or chills. She has been followed by Dr. Jairon Og, had a nuclear stress test in June which was negative and echocardiogram in June of 2016, which showed normal LV function with asymmetric septal hypertrophy. PHYSICAL EXAMINATION: At presentation, blood pressure 124/78, heart rate 82, respirations 18, oxygen saturation 95% on 2 L nasal cannula, temperature 98 degrees Fahrenheit. Positive findings, tachycardia. No murmur on auscultation. Bilateral rales in the lungs. INITIAL INVESTIGATIONS: Chemistry: Sodium 131, potassium 4.7, chloride 103, bicarbonate 19, BUN 15, creatinine 0.81. LFTs: ALT 156, AST 86. Magnesium 1.5 , bilirubin of 0.4, C-reactive protein 14. Troponin I 0.12. BNP 191. CBC: White count 9.2, hemoglobin 11.9, hematocrit 37, platelets 315. Portable chest x-ray: Vascular congestion. EKG: Wide complex tachycardia 148 beats per minute. D-dimer is 325. Initial impression: Atrial flutter with left ventricular response. She was initially given some adenosine that helped make the diagnosis which initially could well have been ventricular tachycardia. She was placed on a Cardizem drip in the intensive care unit to control her rate and a EMILIANA cardioversion was scheduled. She was placed on Xarelto for anticoagulation. I saw her first time on 11/27/16, at that time she had some signs of CHF and I started her on IV furosemide 40 mg twice daily. Her renal function was normal and she is not used to diuretics. Transesophageal echocardiogram on 11/26/16, left ventricular chamber size normal with ejection fraction 55% to 60%. No thrombus in the left atrial appendage. Mild mitral regurgitation, mild tricuspid regurgitation, trace pulmonic regurgitation. PROCEDURE: 11/27/16, she had a EMILIANA-guided direct current cardioversion which converted back to sinus rhythm in which she remained for the rest of her hospital stay. INVESTIGATIONS: Chest x-ray: These were followed in series on 11/27/16, there was clear evidence of pulmonary edema which was resolving by 11/29/16. HOSPITAL COURSE: As noted above, the patient returned to sinus rhythm after DC conversion, we kept her persistently on IV diltiazem and then converted her to oral diltiazem. On 11/28/16, in the evening, she developed acute respiratory failure due to acute flash pulmonary edema. This was confirmed by chest x-ray. Her arterial blood gases at that time showed a pH of 7.28, PCO2 of 55, PO2 of 71, base excess of -1.8. She was evaluated by Dr. Lazo, who applied nitroglycerin paste to the chest, gave her extra IV furosemide, placed her on BiPAP. By the morning, she was already improving. We were able to transfer her to a Vapother. Over the rest of the hospital stay, we were able to slowly wean her off oxygen therapy. I continued her on IV furosemide on a twice daily dosing scheduled. She had a marked diuresis with negative fluid balance and her weight went down from baseline 189 pounds at presentation to 174 pounds on the day of discharge. On the day of discharge, the patient was feeling well, she had no chest pain, no pressure. No paroxysmal nocturnal dyspnea or orthopnea. She was able to walk to the bathroom without any shortness of breath, which is unlike the situation prior to her admission. She had no peripheral edema. No palpitations. Telemetry showed no dysrhythmias. She had no fevers or sweats. REVIEW OF SYSTEMS: Otherwise was negative aside from the usual back pain and neck pain. PHYSICAL EXAMINATION: On the day of discharge, temperature 98.1, pulse rate 83 , respirations 16, blood pressure 148/51, oxygen saturation 91% on room air. She had no cyanosis, anemia, jaundice, clubbing, or adenopathy. Respiratory System: Chest expansion was full and symmetrical. Percussion note was resonant except slightly dull at the bases. She has diminished air entry at the bases. No crackles or wheezes or respiratory distress or use of accessory muscle of respiration. Cardiovascular System: Pulse was regular. Venous pressure was no longer elevated. Heart sounds were normal. No added sounds. No murmurs. No pedal edema. No carotid bruits. Abdominal Examination: No distension, masses, tenderness, or organomegaly. Nervous System: Cranial nerves II through XII are intact. She was oriented x3. Speech was normal. INVESTIGATIONS ON THE DAY OF DISCHARGE: White count 8.1, hemoglobin 11.1, hematocrit 34, platelets 321. Chemistry was within normal limits. Glucose was 170. C-reactive protein had come down to 68.02. She had not required any antibacterial treatments. ASSESSMENT AND PLAN: 1. Atrial flutter. This patient had a spontaneous episode of atrial flutter. This likely means that she has an aberrant conduction pathway with a tendency towards further episodes of atrial flutter. I have placed her on diltiazem to reduce this possibility. She is also on Xarelto to prevent embolization if she should slip back into flutter or fibrillation. She will follow up with Cardiology who will make the decision as to whether she should have electrophysiological study and ablation of the accessory circuit at this stage or whether we should wait for subsequent episodes. 2. Congestive heart failure. This was likely a combination of a stunned left ventricle due to the tachycardia with some water accumulation due to the days of decompensation prior to admission, also likely due to her physiological obstruction due to her asymmetric septal hypertrophy and perhaps due to some of the IV fluid she received. Clearly, this resolved promptly with diuretic therapy and she lost large amounts of fluids. I will maintain her on some furosemide as an outpatient initially. I note that her renal function showed no change during this intensive diuretic therapy. She has good kidney function and no evidence of diabetic renal failure despite her microalbuminuria. 3. Type 2 diabetes mellitus. Her control in the hospital was better than her control at home. She has a problem remembering her medications. Her , Jaylan, promises that she will now be compliant as he will help her out with this. 4. Essential hypertension. At times, she ran a little high, but is on target at the time of discharge. 5. Gastroesophageal reflux disease. Continue current medication. 6. Hypercholesterolemia. Continue current medication. 7. Left bundle branch block. SECONDARY DIAGNOSES: 1. Microalbuminuria. 2. Peripheral neuropathy. 3. Obesity. 4. Diabetic retinopathy. DISCHARGE MEDICATIONS: 1. Diltiazem extended release 240 mg daily. 2. Furosemide 40 mg q.a.m. 3. Magnesium oxide 800 mg daily. 4. Potassium chloride 20 mEq twice daily. 5. Rivaroxaban 20 mg daily. 6. Lispro insulin 20 units a.c. 7. Glargine insulin 30 units twice daily. 8. Metoprolol extended release 50 mg daily. 9. Vitamin B complex once a day. 10. Multivitamin once a day. 11. Fluticasone 2 puffs twice daily MDI. 12. Albuterol ipratropium 1 puff 4 times a day as needed. 13. Vitamin B12 tablets 1 mcg orally each day. 14. Orphenadrine citrate 100 mg daily. 15. Aspirin 81 mg daily. 16. Cilostazol 100 mg twice daily. 17. Quinapril 40 mg daily. 18. Metformin 1000 mg twice daily. 19. Ondansetron as needed for nausea with migraines. 20. Duloxetine 30 mg daily. 21. Isosorbide mononitrate 30 mg daily. 22. Tramadol 50 mg as needed every 6 hours. 23. [place]-3 fatty acids 1 g daily. 24. Metoclopramide 10 mg every 8 hours as needed for migraines. 25. Atorvastatin 80 mg daily. I will fit her in outpatient visits within few days of discharge and I discussed in detail the nature of illness and its treatment with both the patient and her . CC: Dr. Jairon Og* [id number]/[facility] #: [id number] [facility] SYSTEMAlfred
== END 2016-12-02 11:11 | disposition home or self-care (01) | DRG 308 ==
LOC: ED 11:21 → ICU 16:11 → MEDTELE 11-30 10:47
PROVIDERS: ADMIT Internal Medicine; ATTEND Internal Medicine
PROC: B24BZZ4 Ultrasonography of Heart with Aorta, Transesophageal (ICD-10-PCS; 2016-11-27)
PROC: 5A09357 Assistance with Respiratory Ventilation, Less than 24 Consecutive Hours, Continuous Positive Airway Pressure (ICD-10-PCS; 2016-11-27)
PROC: 5A2204Z Restoration of Cardiac Rhythm, Single (ICD-10-PCS; principal; 2016-11-27 11:30)
DX: I48.92 Unspecified atrial flutter (principal); J96.00 Acute respiratory failure, unspecified whether with hypoxia or hypercapnia; I47.2 Ventricular tachycardia; I50.9 Heart failure, unspecified; I11.0 Hypertensive heart disease with heart failure; E83.42 Hypomagnesemia; I42.2 Other hypertrophic cardiomyopathy; I44.7 Left bundle-branch block, unspecified; I09.9 Rheumatic heart disease, unspecified; E66.9 Obesity, unspecified; E11.51 Type 2 diabetes mellitus with diabetic peripheral angiopathy without gangrene; E11.65 Type 2 diabetes mellitus with hyperglycemia; G89.4 Chronic pain syndrome; E11.42 Type 2 diabetes mellitus with diabetic polyneuropathy; R80.9 Proteinuria, unspecified; K21.9 Gastro-esophageal reflux disease without esophagitis; G43.909 Migraine, unspecified, not intractable, without status migrainosus; I08.0 Rheumatic disorders of both mitral and aortic valves; I37.1 Nonrheumatic pulmonary valve insufficiency; E78.00 Pure hypercholesterolemia, unspecified; E11.319 Type 2 diabetes mellitus with unspecified diabetic retinopathy without macular edema; Z79.4 Long term (current) use of insulin; Z79.82 Long term (current) use of aspirin; J45.909 Unspecified asthma, uncomplicated; K58.9 Irritable bowel syndrome, unspecified; M19.042 Primary osteoarthritis, left hand; M19.041 Primary osteoarthritis, right hand; F32.9 Major depressive disorder, single episode, unspecified; Z86.010 Personal history of colon polyps; Z98.42 Cataract extraction status, left eye; Z98.41 Cataract extraction status, right eye; Z85.3 Personal history of malignant neoplasm of breast; Z82.49 Family history of ischemic heart disease and other diseases of the circulatory system; Z80.3 Family history of malignant neoplasm of breast; Z90.710 Acquired absence of both cervix and uterus; Z88.5 Allergy status to narcotic agent; Z83.3 Family history of diabetes mellitus; Z68.29 Body mass index [BMI] 29.0-29.9, adult
CPT/HCPCS: 36415; 36600; 71010; 80048; 80061; 80076; 81003; 81015; 82550; 82553; 82803; 83605; 83690; 83735; 83880; 84443; 84484; 85025; 85379; 85610; 85730; 86140; 92960; 93005; 93312; 93325; 94640; 94660; 94760; A9270-GY; J0153; J1940; J2250; J2310; J3010; J3475; J3480; J3490

== ENCOUNTER 2017-01-04 02:33 | Observation (INO) | payer MEDICARE, OTHER ==
[2017-01-04] MEDS ORDERED: Aspirin Low Dose CHEW TAB* 81 MG PO ONE (02:43)
[2017-01-04] MEDS ORDERED: Diltiazem IV* 5 MG/ML 5 ML VIAL (for loading dose/IV Push) (25 MG) IV SLOW PU ONE ×4 (02:44→04:16)
[2017-01-04] MEDS ORDERED: Diltiazem IV VIAL* 125 MG/25 ML VIAL ONE (02:52)
[2017-01-04] MEDS: Diltiazem DRIP* 100 MG/100 ML ADDV.BAG IVPB ONE ×2 (03:18→03:23)
[2017-01-04 03:25] LABS: Hematocrit 42 % (35-47); Hemoglobin 13.8 g/dl (12.0-16.0); Mean Corpuscular HGB Conc 33 g/dl (31-36); Mean Corpuscular Hemoglobin 29 pg (27-31); Mean Corpuscular Volume 89 fL (80-97); Mean Platelet Volume 9 um3 (7.4-10.4); Red Blood Count 4.75 10^6/ul (4.0-5.4); Red Cell Distribution Width 14 % (10.5-15); White Blood Count 10.7 10^3/ul (3.5-10.8)
[2017-01-04 03:38] LABS: Albumin 3.8 g/dL (3.2-5.2); BUN/Creatinine Ratio 26.1 (8-20); Calcium 9.4 mg/dL (8.6-10.3); EGFR African American 109.1 (>60); EGFR Non-African American 84.9 (>60); Globulin 2.7 g/dL (2-4); Potassium 3.5 mmol/L (3.5-5.0); Total Bilirubin 0.5 mg/dL (0.2-1.0); Total Protein 6.5 g/dL (6.4-8.9)
[2017-01-04 03:43] LABS: Troponin I 0.18 ng/mL (<0.04)
[2017-01-04 03:59] LABS: T4 9.78 g/dL (6.09-12.23)
[2017-01-04 04:00] LABS: TSH (Thyroid Stimulating Horm) 0.92 mcIU/mL (0.34-5.60)
[2017-01-04] MEDS ORDERED: Digoxin IV* 0.5 MG/2 ML AMP (0.25 MG/ML) IV SLOW PU ONE (04:14)
[2017-01-04] MEDS ORDERED: Metoprolol Tartrate IV* 1 MG/ML 5 ML VIAL IV ONE (04:48)
[2017-01-04] MEDS ORDERED: Metoprolol Tartrate IV* 1 MG/ML 5 ML VIAL ONE (04:49)
--- NOTE | 2017-01-04 05:01 | HP ---
H&P (Free Text) History and Physical: PCP: Tanya Brar MD Date/Time of Evaluation: 01/04/2017 0500 CC: palpitations & N/V HPI: Mrs Russo is a 66YO female HX DM2, AFIB, HTN, & LBBB was [place] [facility] for AFLUT/RVR, LBBB, & CHF requiring ICU. She states she never returned to her baseline and started having episodic N/V 3 days ago. She checks her BP & pulse regularly and they were fine. This evening she went to bed noticing the sudden onset of palpitations around 2300. She did have an episode of N/V and checked her pulse finding it to be in the 130s. She called her studio sales associate's office who referred her to [facility] [place] and so her drove her in. She denies chest pain, SOB, sweating, and light-headedness. She has been drinking diabetic Pedialite to try and maintain hydration. Work up reveals AFLUT/RVR with preserved blood pressure. Vitals are otherwise stable. Labs are notable for a troponin increased to 0.18, likely from demand ischemia 2nd tachycardia. Otherwise labs are unremarkable. CXR shows overall improvement in her CHF with residual cephalization. PMedHx DM2 w/ retinopathy, polyneuropathy, microalbuminuria AFLUT/RVR rheumatic heart disease in childhood w/o valvular issue HTN HLD PVD LBBB breast CA GERD chronic pain syndrome migraines depression Allergies Morphine Adverse Reaction (Verified 12/16/16 09:07) Dizziness Ambulatory Orders NOTE: This is the list the patient presented, it does not agree with the 2016 D/C summary. zzInsulin GLARGINE(*) [zzLantus(*)] 10 units SUBCUT BID 02/15/13 zzInsulin inj LISPRO* [zzHumaLOG inj*] 20 units SUBCUT BID WITH MEALS MDD 50 units 02/15/13 Metoprolol Succinate XL TAB* [Toprol XL TAB*] 50 mg PO DAILY 06/08/13 Albuterol/Ipratropium INH(NF) [Combivent Inhaler(NF)] 1 puff INH QID PRN Fluticasone HFA 220 mcg(NF) [Flovent Hfa 220 Mcg(NF)] 2 puff PO BID 12/18/13 Cilostazol TAB* [Pletal TAB*] 100 mg PO BID 07/05/15 Glucagon (Rdna) [Glucagon Emergency Kit] 1 mg INJ ONCE PRN 07/05/15 Quinapril (NF) [Accupril (NF)] 40 mg PO DAILY 07/05/15 metFORMIN* [Glucophage*] 1,000 mg PO BID 07/05/[address] CAP* [Cymbalta CAP*] 30 mg PO DAILY 01/20/16 Ondansetron TAB* [Zofran Tab*] 8 mg PO Q6H PRN 01/20/16 Atorvastatin* [Lipitor 80 MG*] 80 mg PO DAILY 11/26/16 Isosorbide Mononitrate ER TAB* [Imdur ER TAB*] 30 mg PO DAILY 11/26/16 Magnesium Chloride EC TAB* [Slow Mag EC TAB*] 64 mg PO DAILY 11/26/16 Metoclopramide TAB* [Reglan TAB*] 10 mg PO Q8H PRN 11/26/16 traMADol TAB* [Ultram*] 50 mg PO DAILY 11/26/16 Diltiazem HCl Coated Beads [Diltiazem HCl ER] 240 mg PO DAILY #30 tab 12/02/16 Furosemide TAB* [Lasix TAB*] 40 mg PO DAILY #60 tab 12/02/16 Magnesium Oxide TAB* [MagOx 400 TAB*] 800 mg PO DAILY #30 tab 12/02/16 Potassium Chlor TAB* [Potassium Chlor TAB 20 MEQ*] 20 meq PO BID #60 tab.er 10/08 Rivaroxaban TAB(*) [Xarelto 20 mg] 20 mg PO DAILY #30 tab 12/02/16 Tramadol HCl [Tramadol HCl ER] 100 mg PO DAILY 01/04/17 PSurgHx tonsillectomy C-spine surgery 2nd trauma lumpectomy for breast CA cholecystectomy hysterectomy SocHx: no tobacco, alcohol, or recreational drugs; lives with her ; on disability; full code status FamHx: positive for HTN, HLD, & DM ROS: as above, otherwise reviewed and all were negative Constitutional: NAD, normally developed, obese white female vitals: Vital Signs Temp 36.0 C 01/04/17 02:37 Pulse 56 01/04/17 05:00 Resp 11 01/04/17 05:00 BP 119/72 01/04/17 05:00 Pulse Ox 96 01/04/17 05:00 Intake & Output 01/03/17 01/03/17 01/04/17 11:59 23:59 11:59 Weight 68.039 kg HEENM: atraumatic; sclera/conjunctiva: non-icteric/clear; hearing: clinically intact; oropharynx: clear, mucosa tacky Neck: soft tissue: non-tender; thyroid: normal Pulmonary: clear to auscultation bilaterally, good aeration, no accessory muscle use CV: TIR/IR, normal S1S2, no carotid bruit, no jugular venous distention, 2+ B DP /PT, no edema Abdominal: soft, non-distended, non-tender, no rebound/guarding/rigidity, normoactive bowel sounds, no hepatosplenomegaly or masses, no costovertebral angle tenderness Musculoskeletal: general: grossly intact; gait: borderline stability Integumental: normal appearance and texture of exposed skin Psychiatric orientation: AA&O to PPS affect: calm mood: cooperative eye contact: fair to good content: reliable responses: timely insight: good to fair Testing: Lab Results 01/04/17 01/04/17 01/04/17 Range/Units 03:10 03:10 03:10 WBC 10.7 (3.5-10.8) 10^3/ul RBC 4.75 (4.0-5.4) 10^6/ul Hgb 13.8 (12.0-16.0) g/dl Hct 42 (35-47) % MCV 89 (80-97) fL MCH 29 (27-31) pg MCHC 33 (31-36) g/dl RDW 14 (10.5-15) % Plt Count 279 (150-450) 10^3/ul MPV 9 (7.4-10.4) um3 Neut % (Auto) 53.2 (38-83) % Lymph % (Auto) 34.5 (25-47) % [place] % (Auto) 9.3 H (1-9) % Eos % (Auto) 1.9 (0-6) % Baso % (Auto) 1.1 (0-2) % Absolute Neuts (auto) 5.7 (1.5-7.7) 10^3/ul Absolute Lymphs (auto) 3.7 (1.0-4.8) 10^3/ul Absolute Monos (auto) 1.0 H (0-0.8) 10^3/ul Absolute Eos (auto) 0.2 (0-0.6) 10^3/ul Absolute Basos (auto) 0.1 (0-0.2) 10^3/ul Absolute Nucleated RBC 0.01 10^3/ul Nucleated RBC % 0.1 Sodium 133 (133-145) mmol/L Potassium 3.5 (3.5-5.0) mmol/L Chloride 100 L (101-111) mmol/L Carbon Dioxide 23 (22-32) mmol/L Anion Gap 10 (2-11) mmol/L BUN 18 (6-24) mg/dL Creatinine 0.69 (0.51-0.95) mg/dL Est GFR ( Amer) 109.1 (>60) Est GFR (Non-Af Amer) 84.9 (>60) BUN/Creatinine Ratio 26.1 H (8-20) Glucose 176 H (70-100) mg/dL Lactic Acid 1.0 (0.5-2.0) mmol/L Calcium 9.4 (8.6-10.3) mg/dL Total Bilirubin 0.50 (0.2-1.0) mg/dL AST 22 (13-39) U/L ALT 15 (7-52) U/L Alkaline Phosphatase 75 (34-104) U/L Troponin I 0.18 H* (<0.04) ng/mL Total Protein 6.5 (6.4-8.9) g/dL Albumin 3.8 (3.2-5.2) g/dL Globulin 2.7 (2-4) g/dL Albumin/Globulin Ratio 1.4 (1-3) TSH 0.92 (0.34-5.60) mcIU/mL Thyroxine (T4) 9.78 (6.09-12.23) g/dL ECG, personally reviewed: wide complex tachycardia CXR, personally reviewed: significant improvement in CHF, no acute process Impression: 66F presenting in AFLUT/RVR after N/V x3 days DIAGNOSIS & PLAN Primary AFLUT/RVR : refractory to diltiazem & digoxin : brought under control w/ IV metoprolol : telemetry : continue rate control via PRN IV metoprolol supplement to her PO dose : supplemental oxygen : consider cardiology consultation in AM : continue rivaroxaban & diltiazem : supportive care elevated troponin : suspect demand ischemia 2nd tachycardia : trend N/V : dDx: gastroenteritis vs gastroparesis vs doubt ACS : continue metoclopramide : anti-emetics Secondary DM2 w/ retinopathy, polyneuropathy, microalbuminuria : basal/bolus/correctional protocol : hold metformin HTN : continue metoprolol XL, quinapril, isosorbide mononitrate, furosemide, & diltiazem HLD/PVD : continue atorvastatin & cilostazol GERD : omeprazole chronic pain syndrome/depression : continue duloxetine Admission Rational: CDU observation for AFLUT/RVR with elevated troponin DVTp: rivaroxaban Code Status: full HCP:
[2017-01-04] MEDS ORDERED: Metoclopramide TAB* 10 MG PO PRN (05:26)
[2017-01-04] MEDS ORDERED: Acetaminophen TAB* 325 MG PO PRN (05:45)
[2017-01-04] MEDS ORDERED: Ondansetron INJ* 2 MG/ML VIAL IV PRN (05:45)
[2017-01-04] MEDS ORDERED: Albuterol 2.5 MG/3 ML NEB.SOL* (0.083%) INH PRN (05:45)
[2017-01-04] MEDS ORDERED: Metoprolol Tartrate IV* 1 MG/ML 5 ML VIAL IV PRN (05:59)
[2017-01-04] MEDS ORDERED: Insulin GLARGINE(*) 1 UNITS UNIT SUBCUT SCH (06:00)
--- NOTE | 2017-01-04 06:24 | ED ---
Maribell Arellano Matthew, scribed for Vaibhav Caballero MD on 01/04/17 at 0256 . HPI Chest Pain - HPI Summary HPI Summary: A 66 y/o female presents to the ED with left sided chest pain since tonight after going to bed. The pain is described as pressure and rated 5 in severity. Associated symptoms include palpitations, vomiting - since 2 days ago, diaphoresis, lightheadedness w/ standing, decreased appetite, and loose stools - once today. The patient denies cough, diarrhea, fever, chills, pedal edema, and SOB. The patient is currently on xeralto for a Hx of AFib. She was discharged from [facility] on 12/02 for AFib w/ flutter and CHF. 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 Tapia. The patient has been taking her medications. The patient states that Dr. Tapia and Dr. Brar stated that she should not take aspirin. - History of Current Complaint Chief Complaint: ED Time Seen by Provider: 01/04/17 02:42 Hx Obtained From: Patient Onset/Duration: Started Hours Ago, Atraumatic, Still Present Timing: Constant Initial Severity: Moderate Current Severity: Moderate Pain Intensity: 5 Pain Scale Used: 0-10 Numeric Chest Pain Location: Left Lateral Chest Pain Radiates: No Character: Pressure/Squeezing Associated Signs and Symptoms: Positive: Chest Pain, Lightheadedness, Diaphoresis, Palpitations, Vomiting, Other: - loose stools; decreased appeitte. Negative: Shortness of Breath, Fever, Chills, Cough - Additional Pertinent History Primary Care Physician: [id number] - Allergy/Home Medications Allergies/Adverse Reactions: Allergies Allergy/AdvReac Type Severity Reaction Status Date / Time Morphine AdvReac Dizziness Verified 12/16/16 09:07 Home Medications: Home Medications Tramadol HCl [Tramadol HCl ER] 100 mg PO DAILY 01/04/17 [History Confirmed 01/04] PMH/Surg Hx/FS Hx/Imm Hx Endocrine/Hematology History: Reports: Hx Diabetes Denies: Hx Anticoagulant Therapy, Hx Blood Disorders, Hx Blood Transfusions, Hx Bone Marrow Disease, Hx Systemic Lupus Erythematosus, Hx Sickle Cell Disease , Hx Thyroid Disease, Hx Anemia, Hx Unexplained Bleeding, Other Endocrine/ Hematological Disorders Cardiovascular History: Reports: Hx Hypercholesterolemia, Hx Hypertension, Hx Peripheral Vascular Disease, Hx Rheumatic Fever - as a child, Other Cardiovascular Problems/Disorders - Atrial Fib Denies: Hx Angina, Hx Cardiomegaly, Hx Congestive Heart Failure, Hx Coronary Artery Disease, Hx Pacemaker/ICD, Hx Valvular Heart Disease Respiratory History: Reports: Hx Asthma - childhood only, uses inhaler occasionally, Hx Pneumonia - childhood Denies: Hx Chronic Bronchitis, Hx Chronic Obstructive Pulmonary Disease (COPD ), Hx Cystic Fibrosis, Hx Lung Cancer, Hx Pleural Effusion, Hx Pulmonary Edema, Hx Pulmonary Embolism, Hx Seasonal Allergies, Hx Sleep Apnea, Other Respiratory Problems/Disorders GI History: Reports: Hx Gall Bladder Disease, Hx Gastroesophageal Reflux Disease , Hx Irritable Bowel, Other GI Disorders - polyps, GERD Denies: Hx Cirrhosis, Hx Crohn's Disease, Hx Hiatal Hernia, Hx Jaundice, Hx Ulcer Musculoskeletal History: Reports: 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 Denies: Hx Bursitis, Hx Osteoporosis, Hx Scoliosis, Hx Tendonitis Comment Only: Hx Rheumatoid Arthritis - osteo vs. rheumatoid Sensory History: Reports: Hx Cataracts - surgical repair, Hx Contacts or Glasses , Hx Vision Problem Denies: Hx Eye Injury, Hx Eye Prosthesis, Hx Glaucoma, Hx Legally Blind, Hx Macular Degeneration, Hx Deafness, Hx Hearing Aid, Hx Hearing Problem, Other Sensory Impairments Opthamlomology History: Reports: Hx Cataracts - surgical repair, Hx Contacts or Glasses, Hx Vision Problem Denies: Hx Eye Injury, Hx Eye Prosthesis, Hx Glaucoma, Hx Legally Blind, Hx Macular Degeneration, Other Sensory Impairments Neurological History: Denies: Hx Dementia, Hx Headaches, Hx Migraine, Hx Nerve Disease, Hx Seizures , Hx Spinal Cord Injury, Hx Transient Ischemic Attacks (TIA), Other Neuro Impairments/Disorders Psychiatric History: Reports: Hx Depression Denies: Hx Anxiety - Cancer History Cancer Type, Location and Year: BREAST CANCER Hx Chemotherapy: No Hx Radiation Therapy: No Hx Palliative Cancer Treatment: Yes - LUMPECTOMY - Surgical History Surgery Procedure, Year, and Place: tonsillectomy, neck surgery, hysterectomy, bilat cataract surgery, LEFT FIBULA FX, LEFT BREAST LUMPECTOMY. Hx Anesthesia Reactions: No - Immunization History Date of Tetanus Vaccine: Unk Date of Influenza Vaccine: Fall 2013 Infectious Disease History: No Infectious Disease History: Denies: Hx Clostridium Difficile, Hx Hepatitis, Hx Human Immunodeficiency Virus (HIV), Hx of Known/Suspected MRSA, Hx Shingles, Hx Tuberculosis, Hx Known/ Suspected VRE, Hx Known/Suspected VRSA, History Other Infectious Disease, Traveled Outside the [place] in Last 30 Days - Family History Known Family History: Positive: Cardiac Disease - father, Other - CA - mother Family History: Breast CA - Social History Alcohol Use: None Substance Use Type: Reports: None Substance Use Comment - Amount & Last Used: Ultram ER Smoking Status (MU): Never Smoked Tobacco Review of Systems Constitutional: Other - decreased appetite Positive: Skin Diaphoresis. Negative: Fever, Chills Positive: Palpitations, Chest Pain Respiratory: Negative Negative: Shortness Of Breath Gastrointestinal: Other - loose stools - once today Positive: Vomiting. Negative: Abdominal Pain, Diarrhea, Nausea Genitourinary: Negative Negative: dysuria, hematuria Musculoskeletal: Negative Negative: Myalgia, Edema - pedal Skin: Negative Negative: Rash Neurological: Other - lightheadedness Psychological: Normal All Other Systems Reviewed And Are Negative: Yes Physical Exam Triage Information Reviewed: Yes Vital Signs On Initial Exam: Initial Vitals Temp Pulse Resp BP Pulse Ox 96.8 F 165 18 139/92 96 01/04/17 02:37 01/04/17 02:37 01/04/17 02:37 01/04/17 02:37 01/04/17 02:37 Vital Signs Reviewed: Yes Appearance: Positive: No Pain Distress Skin: Positive: Warm, Dry Head/Face: Positive: Other - Normocephalic; Atraumatic Eyes: Positive: Conjunctiva Clear Dental: Negative: Cervical Lymphadenopathy Neck: Positive: Supple, No Lymphadenopathy, Other: - Full ROM; NO JVD Respiratory/Lung Sounds: Positive: Breath Sounds Present, Rhonchi - right upper lung field, Other - Normal Effort. Negative: Stridor, Tracheal Deviation, Wheezes Cardiovascular: Positive: IRR, Tachycardia Abdomen Description: Positive: Nontender, Soft, Other: - No Rebound. Negative: Distended, Guarding Musculoskeletal: Negative: Edema Left, Edema Right Neurological: Positive: Alert, Oriented to Person Place, Time Psychiatric: Positive: Affect/Mood Appropriate Diagnostics - Vital Signs Vital Signs Temp Pulse Resp BP Pulse Ox 01/04/17 02:37 96.8 F 165 18 139/92 96 - Laboratory Lab Results: Lab Results 01/04/17 01/04/17 01/04/17 Range/Units 03:10 03:10 03:10 WBC 10.7 (3.5-10.8) 10^3/ul RBC 4.75 (4.0-5.4) 10^6/ul Hgb 13.8 (12.0-16.0) g/dl Hct 42 (35-47) % MCV 89 (80-97) fL MCH 29 (27-31) pg MCHC 33 (31-36) g/dl RDW 14 (10.5-15) % Plt Count 279 (150-450) 10^3/ul MPV 9 (7.4-10.4) um3 Neut % (Auto) 53.2 (38-83) % Lymph % (Auto) 34.5 (25-47) % [place] % (Auto) 9.3 H (1-9) % Eos % (Auto) 1.9 (0-6) % Baso % (Auto) 1.1 (0-2) % Absolute Neuts (auto) 5.7 (1.5-7.7) 10^3/ul Absolute Lymphs (auto) 3.7 (1.0-4.8) 10^3/ul Absolute Monos (auto) 1.0 H (0-0.8) 10^3/ul Absolute Eos (auto) 0.2 (0-0.6) 10^3/ul Absolute Basos (auto) 0.1 (0-0.2) 10^3/ul Absolute Nucleated RBC 0.01 10^3/ul Nucleated RBC % 0.1 Sodium 133 (133-145) mmol/L Potassium 3.5 (3.5-5.0) mmol/L Chloride 100 L (101-111) mmol/L Carbon Dioxide 23 (22-32) mmol/L Anion Gap 10 (2-11) mmol/L BUN 18 (6-24) mg/dL Creatinine 0.69 (0.51-0.95) mg/dL Est GFR ( Amer) 109.1 (>60) Est GFR (Non-Af Amer) 84.9 (>60) BUN/Creatinine Ratio 26.1 H (8-20) Glucose 176 H (70-100) mg/dL Lactic Acid 1.0 (0.5-2.0) mmol/L Calcium 9.4 (8.6-10.3) mg/dL Total Bilirubin 0.50 (0.2-1.0) mg/dL AST 22 (13-39) U/L ALT 15 (7-52) U/L Alkaline Phosphatase 75 (34-104) U/L Troponin I 0.18 H* (<0.04) ng/mL Total Protein 6.5 (6.4-8.9) g/dL Albumin 3.8 (3.2-5.2) g/dL Globulin 2.7 (2-4) g/dL Albumin/Globulin Ratio 1.4 (1-3) TSH 0.92 (0.34-5.60) mcIU/mL Thyroxine (T4) 9.78 (6.09-12.23) g/dL Result Diagrams: 01/04/17 03:10 01/04/17 03:10 Lab Statement: Any lab studies that have been ordered have been reviewed, and results considered in the medical decision making process. - Radiology CXR Xray Interpretation: No Acute Changes - Improved when compared to prior XR in November Radiology Interpretation Completed By: ED Physician - EKG 02:35 Cardiac Rate: Tachycardia EKG Rhythm: Atrial Flutter EKG Interpretation: Wide complex tachycardia; A-Flutter with RVR; LBBB Chest Pain Course/Dx - Diagnoses Provider Diagnoses: Atrial flutter with rapid ventricular response - Provider Notifications Discussed Care Of Patient With: Dr. Lazo (Hospitalist) at 3:41 -- Notified of patient's history and will admit the patient into his services. - Critical Care Time Critical Care Time: 30-74 min - 60 mins Discharge - Discharge Plan Condition: Stable Disposition: ADMITTED TO [facility] documentation as recorded by the Maribell kidd Matthew accurately reflects the service I personally performed and the decisions made by , Vaibhav Caballero MD.
[2017-01-04] MEDS: Omeprazole CAP* 20 MG PO SCH (06:41)
--- NOTE | 2017-01-04 07:56 | RAD ---
HISTORY: Tachycardia COMPARISONS: November 29, 2016 VIEWS:1: Single frontal portable view of the chest at 3:22 AM FINDINGS: LINES AND TUBES: None. CARDIOMEDIASTINAL SILHOUETTE: The cardiomediastinal silhouette is normal for portable technique. PLEURA: The costophrenic angles are sharp. No pleural abnormalities are noted. LUNG PARENCHYMA: The lungs are clear. ABDOMEN: The upper abdomen is clear. There is no subphrenic gas. BONES AND SOFT TISSUES: No bone or soft tissue abnormalities are noted. IMPRESSION: NO ACTIVE CARDIOPULMONARY DISEASE.
--- NOTE | 2017-01-04 08:34 | PN ---
Subjective - Subjective Reason for Note: Progress Note History: Discharge Summary (contingent on Dr. Tapia's opinion) I have reviewed the history of Marie Jean-Baptiste's presentation from the patient, her and from Dr. Lazo's admitting H and P. She developed nausea and vomiting 3 days ago, no diarrhea. On this occasion she had no photophobia, headache, phonophobia. 2 days ago she had an injection of sumatriptan and the nausea stopped. Yesterday she felt much better and she wondered if she should go to jew. She was woken by palpitations in the night and developed nausea/ vomiting - and after a call to cardiology went to the ED. She is now in sinus rhythm and feeling much better. She denies current nausea. She had a normal bowel movement last night. Other issues: She has been compliant with her medication/diet. I note that when she was vomiting she may not have got all her doses. However, she has continued to lose weight and has become sensitive to insulin. Her FS are frequently < 100 mg /dl and there is a 69 mg/dl in her record. She has cut her lantus to 10 units twice daily. She is consistently losing weight. Active Problems: Active Problems Asymmetric septal hypertrophy (Acute) Atrial flutter (Acute) I48.92 Nausea & vomiting (Acute) R11.2 Weight loss (Acute) Backache (Chronic) M54.9 Diabetes mellitus type 2 (Chronic) E11.9 Essential hypertension (Chronic) I10 Gastroesophageal reflux disease (Chronic) K21.9 Hypercholesterolemia (Chronic) E78.0 Left bundle branch block (Chronic) I44.7 Microalbuminuria (Chronic) R80.9 Neuropathy (Chronic) G62.9 Obesity (Chronic) E66.9 Retinopathy (Chronic) H35.00 Current Medications: Current Medications Acetaminophen (Tylenol Tab*) 650 mg PO Q6H PRN PRN Reason: FEVER/PAIN Albuterol (Ventolin 2.5 Mg/3 Ml Neb.Courtney*) 2.5 mg INH Q2H PRN PRN Reason: SOB/WHEEZING Atorvastatin Calcium (Lipitor*) 80 mg PO DAILY [facility]IANNA Cilostazol (Pletal Tab*) 100 mg PO BID RIANNA Diltiazem HCl (Cardizem Cd Cap*) 240 mg PO DAILY RIANNA Docusate Sodium (Colace Cap*) 200 mg PO BID RIANNA Duloxetine HCl (Cymbalta Cap*) 30 mg PO DAILY [facility] Furosemide (Lasix Tab*) 40 mg PO DAILY [facility] Diltiazem HCl (Cardizem Iv Advan*) 100 mg in 100 mls @ 5 mls/hr IVPB ED ONCE ONE PRN Reason: 5 MG/HR Stop: 01/04/17 23:06 Last Admin: 01/04/17 03:23 Dose: 5 mls/hr Insulin Glargine (Lantus(*)) 30 units SUBCUT Q12H RIANNA Stop: 01/05/17 20:00 Last Admin: 01/04/17 06:41 Dose: 30 units Insulin Human Lispro (Humalog*) 0 units SUBCUT AC RIANNA PRN Reason: Protocol Insulin Human Lispro (Humalog*) 0 units SUBCUT ACHS [facility] PRN Reason: Protocol Isosorbide Mononitrate (Imdur Er Tab*) 30 mg PO DAILY [facility] Lisinopril (Prinivil Tab*) 40 mg PO DAILY [facility] PRN Reason: Protocol Magnesium Oxide (Magox 400 Tab*) 800 mg PO DAILY [facility] Metoclopramide HCl (Reglan Tab*) 10 mg PO Q8H PRN PRN Reason: PAIN - ABDOMINAL Metoprolol Succinate (Toprol Xl Tab*) 50 mg PO DAILY [facility] Metoprolol Tartrate (Lopressor Iv*) 2.5 mg IV Q6H PRN PRN Reason: TACHYCARDIA Stop: 01/04/17 18:00 Mometasone Furoate (Asmanex 220 Mcg Mdi *) 2 puff INH BID [facility] Omeprazole (Prilosec Cap*) 20 mg PO DAILY@0600 [facility] Last Admin: 01/04/17 06:41 Dose: 20 mg Ondansetron HCl (Zofran Inj*) 4 mg IV Q6H PRN PRN Reason: NAUSEA Potassium Chloride (Klor Con Er Tab*) 20 meq PO BID [facility] Rivaroxaban (Xarelto (*)) 20 mg PO DAILY [facility] Tramadol HCl (Ultram*) 50 mg PO Q6H PRN PRN Reason: PAIN - Review of Systems Pulmonary: Negative: Cough, Sputum, Hemoptysis Cardiology: Negative: Chest Pain, Shortness of Breath, Palpitations, Swelling of Ankles Gastroenterology: Positive: Nausea - resolved right now, Vomiting Negative: Abdominal Pain, Anorexia, Constipation, Diarrhea Endocrinology: Positive: Diabetes Mellitus Neurology: Negative: Headache, Change in Vision Home Medications: Home Medications Medication Instructions Recorded Confirmed Type zzInsulin GLARGINE(*) [zzLantus(*)] 10 units SUBCUT BID 02/15/13 01/04/17 History zzInsulin inj LISPRO* [zzHumaLOG 20 units SUBCUT BID WITH MEALS MDD 02/15/13 History inj*] 50 units Metoprolol Succinate XL TAB* 50 mg PO DAILY 06/08/13 01/04/17 History [Toprol XL TAB*] Albuterol/Ipratropium INH(NF) 1 puff INH QID PRN 12/18/13 01/04/17 History [Combivent Inhaler(NF)] Fluticasone HFA 220 mcg(NF) 2 puff PO BID 12/18/13 01/04/17 History [Flovent Hfa 220 Mcg(NF)] Cilostazol TAB* [Pletal TAB*] 100 mg PO BID 07/05/15 01/04/17 History Glucagon (Rdna) [Glucagon 1 mg INJ ONCE PRN 07/05/15 01/04/17 History Emergency Kit] Quinapril (NF) [Accupril (NF)] 40 mg PO DAILY 07/05/15 01/04/17 History metFORMIN* [Glucophage*] 1,000 mg PO BID 07/05/15 01/04/[address] ISLAS* [Cymbalta CAP*] 30 mg PO DAILY 01/20/16 01/04/17 History Ondansetron TAB* [Zofran Tab*] 8 mg PO Q6H PRN 01/20/16 01/04/17 History Atorvastatin* [Lipitor 80 MG*] 80 mg PO DAILY 11/26/16 01/04/17 History Isosorbide Mononitrate ER TAB* 30 mg PO DAILY 11/26/16 01/04/17 History [Imdur ER TAB*] Magnesium Chloride EC TAB* [Slow 64 mg PO DAILY 11/26/16 01/04/17 History Mag EC TAB*] Metoclopramide TAB* [Reglan TAB*] 10 mg PO Q8H PRN 11/26/16 01/04/17 History traMADol TAB* [Ultram*] 50 mg PO DAILY 11/26/16 01/04/17 History Diltiazem HCl Coated Beads 240 mg PO DAILY #30 tab 12/02/16 01/04/17 Rx [Diltiazem HCl ER] Furosemide TAB* [Lasix TAB*] 40 mg PO DAILY #60 tab 12/02/16 01/04/17 Rx Magnesium Oxide TAB* [MagOx 400 800 mg PO DAILY #30 tab 12/02/16 01/04/17 Rx TAB*] Potassium Chlor TAB* [Potassium 20 meq PO BID #60 tab.er 12/02/16 01/04/17 Rx Chlor TAB 20 MEQ*] Rivaroxaban TAB(*) [Xarelto 20 mg] 20 mg PO DAILY #30 tab 12/02/16 01/04/17 Rx Tramadol HCl [Tramadol HCl ER] 100 mg PO DAILY 01/04/17 01/04/17 History Allergies: Allergies Allergy/AdvReac Type Severity Reaction Status Date / Time Morphine AdvReac Dizziness Verified 12/16/16 09:07 Objective - Vital Signs Vital Signs: Vital Signs 01/04/17 06:25 Temperature 97.8 F Pulse Rate 73 Respiratory 16 Rate Blood Pressure 160/55 (mmHg) O2 Sat by Pulse 98 Oximetry - Intake and Output Intake and Output: ADLs: Meal Record Start: 01/04/17 06: 21 Freq: DAILY@0900,1400,1800 Status: Inactive Created 01/04/17 06:21 System (Rec: 01/04/17 06:21 System [id number]) ADLs: Meal Record Start: 01/04/17 06: 25 Freq: DAILY@0900,1400,1800 Status: Active Created 01/04/17 06:25 (Rec: 01/04/17 06:25 [id number]) Intake and Output Start: 01/04/17 06: 21 Freq: DAILY@0600,1400,2200 Status: Inactive Created 01/04/17 06:21 System (Rec: 01/04/17 06:21 System [id number]) Intake and Output Start: 01/04/17 06: 25 Freq: DAILY@0600,1400,2200 Status: Active Created 01/04/17 06:25 (Rec: 01/04/17 06:25 [id number]) - Physical Exam General: No Cyanosis, No Anemia, No Jaundice, No Lymphadenopathy, No Clubbing Eye Exam: bilateral: EOMI Endocrine: No Central Obesity - she has lost a lot of weight, No Acanthosis nigricans Lungs and Chest: Yes: Chest Expansion Full, Chest Expansion Symetrica, Percussion Note Resonant, Vessicular Breath Sounds. No: Crackles, Wheezes Heart Rate and Rhythm: Regular JVP: Elevated Additional Cardiovascular: Yes: Normal Heart Sounds, Heart Murmur - 3/6 aortic area/precordium. No: Pedal Edema Abdominal Exam: Yes: Soft, Bowel Sounds Present. No: Distention, Abdominal Mass , Hepatomegaly, Abdominal Tenderness - Extremities Cranial Nerves II-XII Intact: Yes Limbs: Normal Power, Normal Tone - Neuro Orientation: A/O x3 Speech: Normal Results - Results Lab Results: Laboratory Results - last 24 hr 01/04/17 01/04/17 06:51 07:54 POC Glucose (mg/dL) 243 H Troponin I 0.50 H* Radiology Results: Patient Name: MARIE JEAN-BAPTISTE Medical Record#: [id number] Ordering Physician: Vaibhav Caballero MD Acct.#: [id number] : 1950 Age: 66 Sex: F Location: [address] [place] [address] - MEDICAL/TELEMETRY Exam Date: 01/04/17243 ADM Status: ADM Dru Order Information: CHEST AP PORTABLE Accession Number: [id number] CPT: 23329 HISTORY: Tachycardia COMPARISONS: November 29, 2016 VIEWS:1: Single frontal portable view of the chest at 3:22 AM FINDINGS: LINES AND TUBES: None. CARDIOMEDIASTINAL SILHOUETTE: The cardiomediastinal silhouette is normal for portable technique. PLEURA: The costophrenic angles are sharp. No pleural abnormalities are noted. LUNG PARENCHYMA: The lungs are clear. ABDOMEN: The upper abdomen is clear. There is no subphrenic gas. BONES AND SOFT TISSUES: No bone or soft tissue abnormalities are noted. IMPRESSION: NO ACTIVE CARDIOPULMONARY DISEASE. <Electronically signed by Patricio Curran MD in OV> 01/04/17752 Dictated By: Patricio Curran MD Dictated Date/Time: 01/04/17752 Transcribed Date/Time: 01/04/17751 Copy to: CC:Alexandru Brar MD; aSji Lazo MD; Vaibhav Caballero MD Imaging - [facility] Imaging - [facility] Imaging - [facility] [address] [facility] [place], [place] [id number] [place] [id number] [place] [id number] ph [phone]) ph ([phone]) ph ([phone]) 1 of 1 Other Results/Reports: Telemetry LBBB sinus rhythm Assessment - Problem List Assessment: Patient Problems Asymmetric septal hypertrophy (Acute) Atrial flutter (Acute) Nausea & vomiting (Acute) Weight loss (Acute) Backache (Chronic) Diabetes mellitus type 2 (Chronic) Essential hypertension (Chronic) Gastroesophageal reflux disease (Chronic) Hypercholesterolemia (Chronic) Left bundle branch block (Chronic) Microalbuminuria (Chronic) Neuropathy (Chronic) Obesity (Chronic) Retinopathy (Chronic) Plan: Atrial flutter (Acute) She presented with acute onset of atrial flutter that woke her. She has had nausea/vomiting for several days. She may not have managed to keep down her medications - including diltiazem/metoprolol. She is feeling recovered. She has no physical signs of CHF. I note her troponin I levels are elevated - this is likely rate related ischemia. I spoke to Dr. Tapia who will consult. The patient has agreed to EPS evaluation/ablation of her accessory pathway. The current question is whether she needs a different antidysrhythmia, or whether this was secondary to poor absorption during nausea and vomiting or perhaps due to electrolyte disturbance (though her labs look relatively good) Nausea and Vomiting She has not had recent migraineous symptoms. However, she had relief with a shot of sumatriptan. She hasn't had any other episodes of nausea or vomiting recently. She has no other symptoms suggestive of gastroenteritis - no contacts. This may be a migraine variant. She should take the sumatriptan earlier when she vomits. Asymmetric septal hypertrophy (Acute) per Dr. Tapia Weight loss (Acute) She has had steady weight loss. This has affected her type 2 diabetes mellitus. She has decreased appetite. This is unusual for her and concerns me. Her last abdo CT 07/05/15. I will consider this as an outpatient. Backache (Chronic) not exacerbated Diabetes mellitus type 2 (Chronic) Her insulin requirements are much lower. She is now taking lantus 10 units twice daily - I will cut this to once daily on discharge Essential hypertension (Chronic) not a problem Gastroesophageal reflux disease (Chronic) This may exacerbate her nausea/ vomiting - but is unlikely the cuase Hypercholesterolemia (Chronic) continue current Rx Left bundle branch block (Chronic) ongoing Microalbuminuria (Chronic) secondary diagnosis Neuropathy (Chronic) I examined her feet - good care. Obesity (Chronic) This is no longer a problem Retinopathy (Chronic) ongoing I think that the acute problem is the recurrent atrial flutter. I discussed this with the patient. Dr. Tapia will evaluate her and decide if 1. She should start another anti-arrhytmic. 2. If she needs to stay in the hospital overnight for monitoring.
[2017-01-04] MEDS: Mometasone 220 MCG MDI INH SCH ×2 (08:44→20:44)
[2017-01-04] MEDS ORDERED: traMADol TAB* 50 MG PO PRN (09:00)
[2017-01-04] MEDS ORDERED: TRAMADOL HCL 100 MG PO SCH (09:00)
[2017-01-04] MEDS ORDERED: Metoprolol Succinate XL TAB* 50 MG PO SCH (09:00)
[2017-01-04] MEDS: Atorvastatin* 80 MG TAB PO SCH (09:18)
[2017-01-04] MEDS: Diltiazem CD CAP* 240 MG PO SCH (09:19)
[2017-01-04] MEDS: Magnesium Oxide TAB* 400 MG PO SCH (09:21)
[2017-01-04] MEDS: Furosemide TAB* 40 MG PO SCH (09:21)
[2017-01-04] MEDS: Lisinopril TAB* 10 MG PO SCH (09:21)
[2017-01-04] MEDS: DULoxetine DR CAP* 30 MG CAP.DR PO SCH (09:22)
[2017-01-04] MEDS: Isosorbide Mononitrate ER TAB* 30 MG PO SCH (09:22)
[2017-01-04] MEDS: Docusate CAP* 100 MG PO SCH ×2 (09:23→20:24)
[2017-01-04] MEDS: Cilostazol TAB* 100 MG PO SCH ×2 (09:23→20:24)
[2017-01-04] MEDS: Rivaroxaban TAB(*) 20 MG TAB PO SCH (09:23)
[2017-01-04] MEDS: Potassium Chlor TAB* 20 MEQ TAB.ER PO SCH ×2 (09:23→20:24)
[2017-01-04] MEDS: Insulin LISPRO* 1 UNITS UNIT SUBCUT SCH ×7 (09:25→20:24)
[2017-01-04] MEDS: Insulin GLARGINE(*) 1 UNITS UNIT SUBCUT SCH ×2 (09:28→20:24)
[2017-01-04 13:05] LABS: Magnesium 1.5 mg/dL (1.9-2.7)
[2017-01-04 13:19] LABS: Troponin I 1.07 ng/mL (<0.04)
[2017-01-04] MEDS: PROPAFENONE 225 MG PO SCH (20:24)
--- NOTE | 2017-01-04 20:24 | CONS ---
CARDIOLOGY CONSULTATION: DATE OF CONSULTATION: 01/04/17 INDICATION FOR CONSULTATION: Atrial flutter, atrial tachycardia. HISTORY OF PRESENT ILLNESS: The patient is a 66-year-old female with a history of diabetes, hypertension, hyperlipidemia, who was admitted to the hospital because of episodes of nausea and vomiting and tachycardia. The patient came to the hospital because of 3 days of nausea and vomiting. The patient states that her pulse was irregular around 11'o clock at night. She came to the hospital. She was noted to have a heart rate of 130 in atrial tachycardia, likely atrial flutter and a left bundle-branch block. At that time, the patient states she was feeling slightly lightheaded but denied any chest pain or shortness of breath. She denied any diaphoresis. The patient was given IV diltiazem and her heart rate subsequently came down. This morning, the patient is in a normal sinus rhythm. During this the patient did not have any significant symptoms associated with tachycardia. Her nausea and vomiting was likely due to a GI issue. The patient denied any orthopnea. PAST MEDICAL HISTORY: Significant for peripheral vascular disease, diabetes, hypertension, hyperlipidemia, murmur on exam. PAST SURGICAL HISTORY: Cholecystectomy, hysterectomy, neck surgery for herniated disk. OUTPATIENT MEDICATIONS: Outpatient medications are multiple, they were listed on my office visit from 5 days ago, also in Dr. Lazo's admission history and physical. ALLERGIES: MORPHINE. SOCIAL HISTORY: She drinks 2 to 3 cups of coffee a day. 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 She denies tobacco or alcohol use. She lives with her . PHYSICAL EXAMINATION: VITAL SIGNS: Height is 5 feet 5 inches, weight 150 pounds. Temperature 97.8, pulse rate 73, respiratory rate is 16, oxygen saturation 98% on room air, blood pressure 155/57. HEENT: Sclerae anicteric. Oropharynx is pink without erythema. NECK: Carotids are 2+ without bruits. JVD is normal. Thyroid is normal. LUNGS: Clear to auscultation bilaterally. There is no dullness to percussion. CARDIAC: S1, S2 with a 2/6 systolic ejection murmur heard best in the left of the apex. PMI is normal. ABDOMEN: Soft, nontender, nondistended with normoactive bowel sounds. EXTREMITIES: Show no edema. DIAGNOSTIC STUDIES/LAB DATA: CBC within normal limits. Chemistries within normal limits except for an elevated troponin of 0.18. Her second troponin was 0.5, third troponin was 1.07. TSH is normal. EKG demonstrated normal sinus rhythm with a left bundle-branch block. The patient had an echocardiogram through my office at June 2016, which demonstrated severe asymmetric hypertrophy of the left ventricle with left ventricular outflow tract obstruction, left bundle-branch block causing septal asynchrony. No significant valvular abnormalities. The patient did have a chemical nuclear stress test in June 2016, which showed normal perfusion throughout the myocardium. No evidence of ischemia or infarction. Normal LV function. IMPRESSION: This is a 66-year-old female with multiple medical problems who was admitted to the hospital with nausea and vomiting. She was found to have atrial tachycardia, likely atrial flutter at heart rate of 140 beats a minute. The patient was given diltiazem injection and her heart rate subsequently slowed and then converted back to normal sinus rhythm. She has been in normal sinus rhythm since she has been in the hospital. The patient's initial troponin level was minimally elevated; however, today it is elevated to 1.07. Her elevated troponin is most likely due to increased demand due to the tachycardia. Again the patient had a normal cardiac perfusion study in June 2016. For now my recommendation is for the patient to undergo medical therapy for control of her atrial flutter. The patient had an episode of atrial flutter in October 2016. Eventually, the patient should undergo electrophysiology testing but the patient wants to wait until spring time before she travels out of [place]. The patient will be started on propafenone ER 225 mg twice a day. The patient' s metoprolol will be decreased to 25 mg a day. The patient is on Xarelto 20 mg a day for anticoagulation. [id number] #: [id number] [facility]
[2017-01-05] MEDS: Omeprazole CAP* 20 MG PO SCH (05:12)
--- NOTE | 2017-01-05 08:13 | PN ---
Subjective - Subjective Reason for Note: Discharge Note History: Discharge summary: She is feeling well and wants to go home. Her troponin I levels have started coming down. She has no chest pain, dyspnea, palpitations, edema. There is no cough or sputum. She has no nausea/vomiting/anorexia. She has had a normal bowel movement Active Problems: Active Problems Asymmetric septal hypertrophy (Acute) Atrial flutter (Acute) I48.92 Nausea & vomiting (Acute) R11.2 Weight loss (Acute) Backache (Chronic) M54.9 Diabetes mellitus type 2 (Chronic) E11.9 Essential hypertension (Chronic) I10 Gastroesophageal reflux disease (Chronic) K21.9 Hypercholesterolemia (Chronic) E78.0 Left bundle branch block (Chronic) I44.7 Microalbuminuria (Chronic) R80.9 Neuropathy (Chronic) G62.9 Obesity (Chronic) E66.9 Retinopathy (Chronic) H35.00 Current Medications: Current Medications Acetaminophen (Tylenol Tab*) 650 mg PO Q6H PRN PRN Reason: FEVER/PAIN Albuterol (Ventolin 2.5 Mg/3 Ml Neb.Courtney*) 2.5 mg INH Q2H PRN PRN Reason: SOB/WHEEZING Atorvastatin Calcium (Lipitor*) 80 mg PO DAILY [facility] Last Admin: 01/04/17 09:18 Dose: 80 mg Cilostazol (Pletal Tab*) 100 mg PO BID [facility] Last Admin: 01/04/17 20:24 Dose: 100 mg Diltiazem HCl (Cardizem Cd Cap*) 240 mg PO DAILY [facility] Last Admin: 01/04/17 09:19 Dose: 240 mg Docusate Sodium (Colace Cap*) 200 mg PO BID [facility] Last Admin: 01/04/17 20:24 Dose: 200 mg Duloxetine HCl (Cymbalta Cap*) 30 mg PO DAILY [facility] Last Admin: 01/04/17 09:22 Dose: 30 mg Furosemide (Lasix Tab*) 40 mg PO DAILY [facility] Last Admin: 01/04/17 09:21 Dose: 40 mg Insulin Glargine (Lantus(*)) 10 units SUBCUT Q12H [facility] Stop: 01/05/17 20:00 Last Admin: 01/04/17 20:24 Dose: 10 units Insulin Human Lispro (Humalog*) 0 units SUBCUT AC [facility] PRN Reason: Protocol Last Admin: 01/04/17 17:40 Dose: 4 units Insulin Human Lispro (Humalog*) 0 units SUBCUT ACHS [facility] PRN Reason: Protocol Last Admin: 01/04/17 20:24 Dose: 6 units Isosorbide Mononitrate (Imdur Er Tab*) 30 mg PO DAILY [facility] Last Admin: 01/04/17 09:22 Dose: 30 mg Lisinopril (Prinivil Tab*) 40 mg PO DAILY [facility] PRN Reason: Protocol Last Admin: 01/04/17 09:21 Dose: 40 mg Magnesium Oxide (Magox 400 Tab*) 800 mg PO DAILY [facility] Last Admin: 01/04/17 09:21 Dose: 800 mg Metoclopramide HCl (Reglan Tab*) 10 mg PO Q8H PRN PRN Reason: PAIN - ABDOMINAL Metoprolol Succinate (Toprol Xl Tab*) 25 mg PO DAILY [facility] Mometasone Furoate (Asmanex 220 Mcg Mdi *) 2 puff INH BID [facility] Last Admin: 01/04/17 20:44 Dose: 2 puff Omeprazole (Prilosec Cap*) 20 mg PO DAILY@0600 [facility] Last Admin: 01/05/17 05:12 Dose: 20 mg Potassium Chloride (Klor Con Er Tab*) 20 meq PO BID [facility] Last Admin: 01/04/17 20:24 Dose: 20 meq Propafenone HCl (Rythmol Sr (Nf)) 225 mg PO Q12HR [facility] Last Admin: 01/04/17 20:24 Dose: 225 mg Rivaroxaban (Xarelto (*)) 20 mg PO DAILY [facility] Last Admin: 01/04/17 09:23 Dose: 20 mg Tramadol HCl (Ultram*) 50 mg PO Q6H PRN PRN Reason: PAIN Home Medications: Home Medications Medication Instructions Recorded Confirmed Type zzInsulin GLARGINE(*) [zzLantus(*)] 10 units SUBCUT BID 02/15/13 01/04/17 History Metoprolol Succinate XL TAB* 50 mg PO DAILY 06/08/13 01/04/17 History [Toprol XL TAB*] Albuterol/Ipratropium INH(NF) 1 puff INH QID PRN 12/18/13 01/04/17 History [Combivent Inhaler(NF)] Fluticasone HFA 220 mcg(NF) 2 puff PO BID 12/18/13 01/04/17 History [Flovent Hfa 220 Mcg(NF)] Cilostazol TAB* [Pletal TAB*] 100 mg PO BID 07/05/15 01/04/17 History Glucagon (Rdna) [Glucagon 1 mg INJ ONCE PRN 07/05/15 01/04/17 History Emergency Kit] Quinapril (NF) [Accupril (NF)] 40 mg PO DAILY 07/05/15 01/04/17 History metFORMIN* [Glucophage*] 1,000 mg PO BID 07/05/15 01/04/17 History DULoxetine CAP* [Cymbalta CAP*] 30 mg PO DAILY 01/20/16 01/04/17 History Ondansetron TAB* [Zofran Tab*] 8 mg PO Q6H PRN 01/20/16 01/04/17 History Atorvastatin* [Lipitor 80 MG*] 80 mg PO DAILY 11/26/16 01/04/17 History Isosorbide Mononitrate ER TAB* 30 mg PO DAILY 11/26/16 01/04/17 History [Imdur ER TAB*] traMADol TAB* [Ultram*] 50 mg PO DAILY 11/26/16 01/04/17 History Diltiazem HCl Coated Beads 240 mg PO DAILY #30 tab 12/02/16 01/04/17 Rx [Diltiazem HCl ER] Furosemide TAB* [Lasix TAB*] 40 mg PO DAILY #60 tab 12/02/16 01/04/17 Rx Magnesium Oxide TAB* [MagOx 400 800 mg PO DAILY #30 tab 12/02/16 01/04/17 Rx TAB*] Potassium Chlor TAB* [Potassium 20 meq PO BID #60 tab.er 12/02/16 01/04/17 Rx Chlor TAB 20 MEQ*] Rivaroxaban TAB(*) [Xarelto 20 mg] 20 mg PO DAILY #30 tab 12/02/16 01/04/17 Rx Tramadol HCl [Tramadol HCl ER] 100 mg PO DAILY 01/04/17 01/04/17 History Insulin Lispro [Humalog Kwikpen] 10 unit SC AC #10 inj 01/05/17 Rx Omeprazole CAP* [Prilosec CAP* 20 20 mg PO BID #60 cap. 01/05/17 Rx MG] Propafenone ER (NF) [Rythmol SR 225 mg PO Q12HR #60 cap.er 01/05/17 Rx (NF)] Allergies: Allergies Allergy/AdvReac Type Severity Reaction Status Date / Time Morphine AdvReac Dizziness Verified 12/16/16 09:07 Objective - Vital Signs Vital Signs: Vital Signs 01/04/17 01/04/17 01/04/17 08:45 11:46 14:56 Temperature 97.8 F 98.3 F Pulse Rate 96 73 75 Respiratory 16 16 16 Rate Blood Pressure 104/50 100/56 (mmHg) O2 Sat by Pulse 97 97 98 Oximetry 01/04/17 01/04/17 01/05/17 20:38 23:50 03:51 Temperature 97.7 F 98.3 F 98.3 F Pulse Rate 72 70 67 Respiratory 16 16 16 Rate Blood Pressure 138/63 118/38 119/40 (mmHg) O2 Sat by Pulse 98 98 98 Oximetry - Intake and Output Intake and Output: Intake & Output 01/02/17 01/03/17 01/04/17 01/05/17 11:59 11:59 11:59 11:59 Intake Total 240 890 Output Total 0 Balance 240 890 Weight 150 lb 165 lb 1.6 oz Intake: Oral 240 890 Output: Urine 0 Other: Estimated Void Medium # Voids 2 ADLs: Meal Record Start: 01/04/17 06: 21 Freq: DAILY@0900,1400,1800 Status: Inactive Created 01/04/17 06:21 System (Rec: 01/04/17 06:21 System [id number]) ADLs: Meal Record Start: 01/04/17 06: 25 Freq: DAILY@0900,1400,1800 Status: Active Created 01/04/17 06:25 (Rec: 01/04/17 06:25 [email or web address]) Document 01/04/17 09:00 [id number] (Rec: 01/04/17 10:28 [id number] [id number]) Document 01/04/17 13:40 [id number] (Rec: 01/04/17 13:41 [id number] [id number]) Document 01/04/17 18:24 [id number] (Rec: 01/04/17 18:24 [id number]) Intake and Output Start: 01/04/17 06: 21 Freq: DAILY@0600,1400,2200 Status: Inactive Created 01/04/17 06:21 System (Rec: 01/04/17 06:21 System [id number]) Intake and Output Start: 01/04/17 06: 25 Freq: DAILY@0600,1400,2200 Status: Active Created 01/04/17 06:25 [id number] (Rec: 01/04/17 06:25 TELE-C01) Document 01/04/17 13:40 [id number] (Rec: 01/04/17 13:41 [id number] [id number]) Document 01/04/17 16:44 [id number] (Rec: 01/04/17 16:45 [id number] [id number]) Document 01/04/17 22:00 [id number] (Rec: 01/04/17 22:03 [id number] TELE-C35) Document 01/05/17 05:57 [id number] (Rec: 01/05/17 05:58 [id number] TELE-C35) - Physical Exam General: No Cyanosis, No Anemia, No Jaundice, No Lymphadenopathy Lungs and Chest: Yes: Chest Expansion Full, Chest Expansion Symetrica, Percussion Note Resonant, Vessicular Breath Sounds. No: Crackles, Wheezes Heart Rate and Rhythm: Regular JVP: Not Elevated Additional Cardiovascular: Yes: Normal Heart Sounds, Heart Murmur - 3/6 aortic area and precordium. No: Pedal Edema Abdominal Exam: Yes: Soft, Bowel Sounds Present. No: Distention, Abdominal Mass , Hepatomegaly, Abdominal Tenderness - Extremities Cranial Nerves II-XII Intact: Yes Limbs: Normal Power - Neuro Orientation: A/O x3 Speech: Normal Results - Results Lab Results: Laboratory Results - last 24 hr 01/04/17 01/04/17 01/04/17 07:54 12:17 12:19 POC Glucose (mg/dL) 243 H 225 H Magnesium 1.5 L Troponin I 1.07 H* 01/04/17 01/04/17 01/04/17 15:45 17:06 19:57 POC Glucose (mg/dL) 364 H Magnesium Troponin I 0.95 H* 0.86 H* 01/04/17 01/05/17 19:59 07:39 POC Glucose (mg/dL) 218 H 160 H Magnesium Troponin I Assessment - Problem List Assessment: Patient Problems Asymmetric septal hypertrophy (Acute) Atrial flutter (Acute) Nausea & vomiting (Acute) Weight loss (Acute) Backache (Chronic) Diabetes mellitus type 2 (Chronic) Essential hypertension (Chronic) Gastroesophageal reflux disease (Chronic) Hypercholesterolemia (Chronic) Left bundle branch block (Chronic) Microalbuminuria (Chronic) Neuropathy (Chronic) Obesity (Chronic) Retinopathy (Chronic) Plan: Atrial flutter (Acute) She remains in sinus rhythm. She is now taking propafenone alongside metoprolol and diltiazem. Her troponin I is coming down - this was likely a rise due to demand ischemia. I am discharging her home. Dr. Tapia is arranging for EPS management of her accessory pathway Asymmetric septal hypertrophy (Acute) - Underlying cardiac pathology Nausea & vomiting (Acute) This has cleared up - may have been viral vs atypical migraine Weight loss (Acute) ongoing Backache (Chronic) secondary diagnosis Diabetes mellitus type 2 (Chronic) running a little high in the hospital Essential hypertension (Chronic) controlled Gastroesophageal reflux disease (Chronic) remain on omeprazole Hypercholesterolemia (Chronic) continue current Rx Left bundle branch block (Chronic) Microalbuminuria (Chronic) secondary diagnosis Neuropathy (Chronic) secondary diagnosis Retinopathy (Chronic) secondary diagnosis Discharge medications: Ambulatory Orders zzInsulin GLARGINE(*) [zzLantus(*)] 10 units SUBCUT BID 02/15/13 Diabetes mellitus Metoprolol Succinate XL TAB* [Toprol XL TAB*] 50 mg PO DAILY 06/08/13 High blood pressure/to slow your heart rate and prevent atrial flutter Albuterol/Ipratropium INH(NF) [Combivent Inhaler(NF)] 1 puff INH QID PRN 12/18 Asthma Fluticasone HFA 220 mcg(NF) [Flovent Hfa 220 Mcg(NF)] 2 puff PO BID 12/18/13 Asthma Cilostazol TAB* [Pletal TAB*] 100 mg PO BID 07/05/15 Poor circulation Glucagon (Rdna) [Glucagon Emergency Kit] 1 mg INJ ONCE PRN 07/05/15 Rescue for when you have a low glucose and can't swallow anything Quinapril (NF) [Accupril (NF)] 40 mg PO DAILY 07/05/15 hypertension/ diabetic kidney disease metFORMIN* [Glucophage*] 1,000 mg PO BID 07/05/15 diabetes mellitus DULoxetine CAP* [Cymbalta CAP*] 30 mg PO DAILY 01/20/16 depression/chronic pain syndrome Ondansetron TAB* [Zofran Tab*] 8 mg PO Q6H PRN 01/20/16 Nausea and vomiting Atorvastatin* [Lipitor 80 MG*] 80 mg PO DAILY 11/26/16 High cholesterol Isosorbide Mononitrate ER TAB* [Imdur ER TAB*] 30 mg PO DAILY 11/26/16 Heart traMADol TAB* [Ultram*] 50 mg PO DAILY 11/26/16 Mild pain Diltiazem HCl Coated Beads [Diltiazem HCl ER] (Matzim [place]) 240 mg PO DAILY #30 tab 12/02/16 High blood pressure/to slow your heart rate and prevent atrial flutter Furosemide TAB* [Lasix TAB*] 40 mg PO every other day #60 tab 12/02/16 Heart failure - take one day in 2 Magnesium Oxide TAB* [MagOx 400 TAB*] 800 mg PO DAILY #30 tab 12/02/16 Low magnesium Potassium Chlor TAB* [Potassium Chlor TAB 20 MEQ*] 20 meq PO BID #60 tab.er Low potassium Rivaroxaban TAB(*) [Xarelto 20 mg] 20 mg PO DAILY #30 tab 12/02/16 Blood thinner to prevent blood clots from atrial flutter Tramadol HCl [Tramadol HCl ER] 100 mg PO DAILY 01/04/17 severe pain Insulin Lispro [Humalog Kwikpen] 10 unit SC AC #10 inj 01/05/17 diabetes mellitus Omeprazole CAP* [Prilosec CAP* 20 MG] 20 mg PO BID #60 01/05/17 Gastroesophageal reflux disease Propafenone ER (NF) [Rythmol SR (NF)] 225 mg PO Q12HR #60 cap.er 01/05/17 To prevent atrial flutter Certirizine allergy tablet as needed I discussed the above with the patient and her .
[2017-01-05] MEDS: Insulin GLARGINE(*) 1 UNITS UNIT SUBCUT SCH (08:57)
[2017-01-05] MEDS: Insulin LISPRO* 1 UNITS UNIT SUBCUT SCH ×2 (08:57)
[2017-01-05] MEDS: DULoxetine DR CAP* 30 MG CAP.DR PO SCH (08:58)
[2017-01-05] MEDS: Potassium Chlor TAB* 20 MEQ TAB.ER PO SCH (08:58)
[2017-01-05] MEDS: Rivaroxaban TAB(*) 20 MG TAB PO SCH (08:58)
[2017-01-05] MEDS: Docusate CAP* 100 MG PO SCH (08:59)
[2017-01-05] MEDS: PROPAFENONE 225 MG PO SCH (08:59)
[2017-01-05] MEDS: Cilostazol TAB* 100 MG PO SCH (08:59)
[2017-01-05] MEDS: Furosemide TAB* 40 MG PO SCH (08:59)
[2017-01-05] MEDS: Magnesium Oxide TAB* 400 MG PO SCH (08:59)
[2017-01-05] MEDS: Atorvastatin* 80 MG TAB PO SCH (09:00)
[2017-01-05] MEDS ORDERED: Metoprolol Succinate XL TAB* 25 MG PO SCH (09:00)
[2017-01-05] MEDS: Diltiazem CD CAP* 240 MG PO SCH (09:00)
[2017-01-05] MEDS: Lisinopril TAB* 10 MG PO SCH (09:00)
[2017-01-05] MEDS: Isosorbide Mononitrate ER TAB* 30 MG PO SCH (09:00)
[2017-01-05 09:05] VITALS: BP 148/56
[2017-01-05] MEDS: Mometasone 220 MCG MDI INH SCH (10:34)
== END 2017-01-05 10:40 | disposition home or self-care (01) ==
LOC: ED 02:33 → MEDTELE 06:13
PROVIDERS: ADMIT Hospitalist; ATTEND Internal Medicine
DX: I48.91 Unspecified atrial fibrillation (principal); I48.92 Unspecified atrial flutter; E11.9 Type 2 diabetes mellitus without complications; I10 Essential (primary) hypertension; Z88.5 Allergy status to narcotic agent; Z85.3 Personal history of malignant neoplasm of breast; K21.9 Gastro-esophageal reflux disease without esophagitis; G89.4 Chronic pain syndrome; E78.5 Hyperlipidemia, unspecified
CPT/HCPCS: 36415; 71010; 80053; 83605; 83735; 84436; 84443; 84484; 85025; 93005; 94760; 96374; 96375; 99285; A9270-GY; G0378; G8978-GP-CH; G8979-GP-CH; G8980-GP-CH; J1160; J3490

== ENCOUNTER → 2017-05-23 06:53 | Emergency (ER) | payer MEDICARE, OTHER ==
[2017-05-23 07:00] VITALS: BP 175/64
--- NOTE | 2017-05-23 08:59 | ED ---
Skin Complaint - HPI Summary HPI Summary: 67F w/ PMH of DM and HTN presents with rash since Wednesday. She states that it is present on her forehead and neck. The area is very itchy. She has not taken anything or placed anything on it. She denies any fever. She states she was outside in her garden on Wednesday pulling weeds. She denies eating anything new or any new products. She states her sugars have been where they normal are. She also admits to side pain that is intermittent that does not want work up at this time. She states she will see her primary instead. - History of Current Complaint Chief Complaint: EDRashSkinAbscess Time Seen by Provider: 05/23/17 08:37 Stated Complaint: RASH ON HEAD Pain Intensity: 0 - Additional Pertinent History Primary Care Physician: [id number] - Allergy/Home Medications Allergies/Adverse Reactions: Allergies Allergy/AdvReac Type Severity Reaction Status Date / Time Morphine AdvReac Dizziness Verified 03/22/17 08:16 PMH/Surg Hx/FS Hx/Imm Hx Endocrine/Hematology History: Reports: Hx Diabetes Denies: Hx Anticoagulant Therapy, Hx Blood Disorders, Hx Blood Transfusions, Hx Bone Marrow Disease, Hx Systemic Lupus Erythematosus, Hx Sickle Cell Disease , Hx Thyroid Disease, Hx Anemia, Hx Unexplained Bleeding, Other Endocrine/ Hematological Disorders Cardiovascular History: Reports: Hx Hypercholesterolemia, Hx Hypertension, Hx Peripheral Vascular Disease, Hx Rheumatic Fever - as a child, Other Cardiovascular Problems/Disorders - Atrial Fib Denies: Hx Angina, Hx Cardiomegaly, Hx Congestive Heart Failure, Hx Coronary Artery Disease, Hx Pacemaker/ICD, Hx Valvular Heart Disease Respiratory History: Reports: Hx Asthma - childhood only, uses inhaler occasionally, Hx Pneumonia - childhood Denies: Hx Chronic Bronchitis, Hx Chronic Obstructive Pulmonary Disease (COPD ), Hx Cystic Fibrosis, Hx Lung Cancer, Hx Pleural Effusion, Hx Pulmonary Edema, Hx Pulmonary Embolism, Hx Seasonal Allergies, Hx Sleep Apnea, Other Respiratory Problems/Disorders GI History: Reports: Hx Gall Bladder Disease, Hx Gastroesophageal Reflux Disease , Hx Irritable Bowel, Other GI Disorders - polyps, GERD Denies: Hx Cirrhosis, Hx Crohn's Disease, Hx Hiatal Hernia, Hx Jaundice, Hx Ulcer Musculoskeletal History: Reports: 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 Denies: Hx Bursitis, Hx Osteoporosis, Hx Scoliosis, Hx Tendonitis Comment Only: Hx Rheumatoid Arthritis - osteo vs. rheumatoid Sensory History: Reports: Hx Cataracts - surgical repair, Hx Contacts or Glasses , Hx Vision Problem Denies: Hx Eye Injury, Hx Eye Prosthesis, Hx Glaucoma, Hx Legally Blind, Hx Macular Degeneration, Hx Deafness, Hx Hearing Aid, Hx Hearing Problem, Other Sensory Impairments Opthamlomology History: Reports: Hx Cataracts - surgical repair, Hx Contacts or Glasses, Hx Vision Problem Denies: Hx Eye Injury, Hx Eye Prosthesis, Hx Glaucoma, Hx Legally Blind, Hx Macular Degeneration, Other Sensory Impairments Neurological History: Denies: Hx Dementia, Hx Headaches, Hx Migraine, Hx Nerve Disease, Hx Seizures , Hx Spinal Cord Injury, Hx Transient Ischemic Attacks (TIA), Other Neuro Impairments/Disorders Psychiatric History: Reports: Hx Depression Denies: Hx Anxiety - Cancer History Cancer Type, Location and Year: BREAST CANCER Hx Chemotherapy: No Hx Radiation Therapy: No Hx Palliative Cancer Treatment: Yes - LUMPECTOMY - Surgical History Surgery Procedure, Year, and Place: tonsillectomy, neck surgery, hysterectomy, bilat cataract surgery, LEFT FIBULA FX, LEFT BREAST LUMPECTOMY. Hx Anesthesia Reactions: No - Immunization History Date of Tetanus Vaccine: Unk Date of Influenza Vaccine: Fall 2013 Infectious Disease History: No Infectious Disease History: Denies: Hx Clostridium Difficile, Hx Hepatitis, Hx Human Immunodeficiency Virus (HIV), Hx of Known/Suspected MRSA, Hx Shingles, Hx Tuberculosis, Hx Known/ Suspected VRE, Hx Known/Suspected VRSA, History Other Infectious Disease, Traveled Outside the [place] in Last 30 Days - Family History Known Family History: Positive: Cardiac Disease - father, Other - CA - mother Family History: Breast CA - Social History Alcohol Use: None Substance Use Type: Reports: None Substance Use Comment - Amount & Last Used: Ultram ER Smoking Status (MU): Never Smoked Tobacco Review of Systems Negative: Fever Negative: Chest Pain Negative: Shortness Of Breath Positive: Rash All Other Systems Reviewed And Are Negative: Yes Physical Exam Triage Information Reviewed: Yes Vital Signs On Initial Exam: Initial Vitals Temp Pulse Resp BP Pulse Ox 97.9 F 78 16 175/64 96 05/23/17 06:57 05/23/17 06:57 05/23/17 06:57 05/23/17 06:57 05/23/17 06:57 Vital Signs Reviewed: Yes Appearance: Positive: Well-Appearing Skin: Positive: Other - area of urticara on forehead and neck Head/Face: Positive: Normal Head/Face Inspection Eyes: Positive: Normal, Conjunctiva Clear ENT: Positive: Normal ENT inspection, Pharynx normal, TMs normal Respiratory/Lung Sounds: Positive: Clear to Auscultation, Breath Sounds Present Cardiovascular: Positive: Normal, RRR Diagnostics - Vital Signs Vital Signs Temp Pulse Resp BP Pulse Ox 05/23/17 06:57 97.9 F 78 16 175/64 96 - Laboratory Lab Statement: Any lab studies that have been ordered have been reviewed, and results considered in the medical decision making process. Course/Dx - Course Course Of Treatment: 67F w/ PMH of DM and HTN presents with rash since Wednesday. She states that it is present on her forehead and neck. The area is very itchy. She has not taken anything or placed anything on it. She denies any fever. She states she was outside in her garden on Wednesday pulling weeds. She denies eating anything new or any new products. Rash does not appear like shingles. rash appears more like contact dermatitis. discussed options and that will have use bendaryl and hydrocoritsone and follow up with primary. discussed place ice around eyes due to some swelling. patient understands and agrees with plan - Differential Diagnoses - Skin Complaint Differential Diagnoses: Cellulitis, Contact Dermatitis, Other - shingles - Diagnoses Provider Diagnoses: Contact dermatitis Discharge - Discharge Plan Condition: Good Disposition: HOME Patient Education Materials: Contact Dermatitis (ED) Referrals: Alexandru Brar MD [Primary Care Provider] - Additional Instructions: Take Benadryl every 6 hours Can apply cream with hydrocortisone to area for itchy once a day Apply calamine lotion to area Cool tea bags for eye swelling Return to ED if develop any new or worsening symptoms
== END | disposition home or self-care (01) ==
LOC: ED 06:53
DX: L25.9 Unspecified contact dermatitis, unspecified cause (principal); R21 Rash and other nonspecific skin eruption; Z86.79 Personal history of other diseases of the circulatory system; E11.9 Type 2 diabetes mellitus without complications
CPT/HCPCS: 99281

== ENCOUNTER 2018-01-25 15:09 | Emergency (ER) | payer MEDICARE, OTHER ==
[2018-01-25] MEDS ORDERED: NS 0.9% 1000 ML* 1,000 ML IV ONE (15:58)
[2018-01-25] MEDS ORDERED: Clindamycin 600 MG IVPREMIX(* 600 MG/50 ML SDV IV ONE (15:59)
--- NOTE | 2018-01-25 16:03 | ED ---
Skin Complaint - HPI Summary HPI Summary: 67 female presents to ED with complaints of left hand swelling since Wednesday, 01/23. States she woke up with it swollen and warm. States she was seen by PCP yesterday had x-rays and labs without abnormal findings. This morning patient vomited and feels like her hand is turning red. States that is the hand/fingers that she uses to check her daily glucose level. She has type II diabetes. Denies known fever or chills. States her hand/distal arm is painful. No other rashes, or complaints at this time. Denies MRSA history. Has not had this before. States they at first thought maybe gout at pcp however ruled that out. PMHx: a fib, HTN, Type II DM. Is on xarelto, no history of blood clots. No injury and no trauma. - History of Current Complaint Chief Complaint: EDExtremityUpper Time Seen by Provider: 01/25/18 15:22 Stated Complaint: LT HAND SWELLING-WAS at PCP YESTERDAY Hx Obtained From: Patient Onset/Duration: Started Days Ago, Still Present, Worse Since Skin Exposure Onset/Duration: Days Ago Timing: Constant Onset Severity: Mild Current Severity: Moderate Pain Intensity: 6 Pain Scale Used: 0-10 Numeric Skin Location: Arm, Hand - left Character: Swelling, Redness, Painful Aggravating Symptom(s): Nothing Alleviating Symptom(s): Nothing Associated Signs & Symptoms: Vomiting - x1, Rash, Red Streaks - Additional Pertinent History Primary Care Physician: [id number] - Allergy/Home Medications Allergies/Adverse Reactions: Allergies Allergy/AdvReac Type Severity Reaction Status Date / Time Sulfa (Sulfonamide Allergy See Comment Verified 01/25/18 15:16 Antibiotics) morphine AdvReac Dizziness Verified 12/28/17 09:00 PMH/Surg Hx/FS Hx/Imm Hx Endocrine/Hematology History: Reports: Hx Diabetes Denies: Hx Anticoagulant Therapy, Hx Blood Disorders, Hx Blood Transfusions, Hx Bone Marrow Disease, Hx Systemic Lupus Erythematosus, Hx Sickle Cell Disease , Hx Thyroid Disease, Hx Anemia, Hx Unexplained Bleeding, Other Endocrine/ Hematological Disorders Cardiovascular History: Reports: Hx Hypercholesterolemia, Hx Hypertension, Hx Peripheral Vascular Disease, Hx Rheumatic Fever - as a child, Other Cardiovascular Problems/Disorders - Atrial Fib Denies: Hx Angina, Hx Cardiomegaly, Hx Congestive Heart Failure, Hx Coronary Artery Disease, Hx Pacemaker/ICD, Hx Valvular Heart Disease Respiratory History: Reports: Hx Asthma - childhood only, uses inhaler occasionally, Hx Pneumonia - childhood Denies: Hx Chronic Bronchitis, Hx Chronic Obstructive Pulmonary Disease (COPD ), Hx Cystic Fibrosis, Hx Lung Cancer, Hx Pleural Effusion, Hx Pulmonary Edema, Hx Pulmonary Embolism, Hx Seasonal Allergies, Hx Sleep Apnea, Other Respiratory Problems/Disorders GI History: Reports: Hx Gall Bladder Disease, Hx Gastroesophageal Reflux Disease , Hx Irritable Bowel, Other GI Disorders - polyps, GERD Denies: Hx Cirrhosis, Hx Crohn's Disease, Hx Hiatal Hernia, Hx Jaundice, Hx Ulcer Musculoskeletal History: Reports: 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 Denies: Hx Bursitis, Hx Osteoporosis, Hx Scoliosis, Hx Tendonitis Comment Only: Hx Rheumatoid Arthritis - osteo vs. rheumatoid Sensory History: Reports: Hx Cataracts - surgical repair, Hx Contacts or Glasses , Hx Vision Problem Denies: Hx Eye Injury, Hx Eye Prosthesis, Hx Glaucoma, Hx Legally Blind, Hx Macular Degeneration, Hx Deafness, Hx Hearing Aid, Hx Hearing Problem, Other Sensory Impairments Opthamlomology History: Reports: Hx Cataracts - surgical repair, Hx Contacts or Glasses, Hx Vision Problem Denies: Hx Eye Injury, Hx Eye Prosthesis, Hx Glaucoma, Hx Legally Blind, Hx Macular Degeneration, Other Sensory Impairments Neurological History: Denies: Hx Dementia, Hx Headaches, Hx Migraine, Hx Nerve Disease, Hx Seizures , Hx Spinal Cord Injury, Hx Transient Ischemic Attacks (TIA), Other Neuro Impairments/Disorders Psychiatric History: Reports: Hx Depression Denies: Hx Anxiety - Cancer History Cancer Type, Location and Year: BREAST CANCER Hx Chemotherapy: No Hx Radiation Therapy: No Hx Palliative Cancer Treatment: Yes - LUMPECTOMY - Surgical History Surgery Procedure, Year, and Place: tonsillectomy, neck surgery, hysterectomy, bilat cataract surgery, LEFT FIBULA FX, LEFT BREAST LUMPECTOMY. Hx Anesthesia Reactions: No - Immunization History Date of Tetanus Vaccine: Unk Date of Influenza Vaccine: Fall 2013 Infectious Disease History: No Infectious Disease History: Denies: Hx Clostridium Difficile, Hx Hepatitis, Hx Human Immunodeficiency Virus (HIV), Hx of Known/Suspected MRSA, Hx Shingles, Hx Tuberculosis, Hx Known/ Suspected VRE, Hx Known/Suspected VRSA, History Other Infectious Disease, Traveled Outside the [place] in Last 30 Days - Family History Known Family History: Positive: Cardiac Disease - father, Other - CA - mother Family History: Breast CA - Social History Alcohol Use: None Substance Use Type: Reports: None Substance Use Comment - Amount & Last Used: Ultram ER Smoking Status (MU): Never Smoked Tobacco Review of Systems Constitutional: Negative Cardiovascular: Negative Respiratory: Negative Positive: Vomiting Positive: Myalgia Positive: Rash All Other Systems Reviewed And Are Negative: Yes Physical Exam Triage Information Reviewed: Yes Vital Signs On Initial Exam: Initial Vitals Temp Pulse Resp BP Pulse Ox 98.2 F 100 17 136/56 98 01/25/18 15:12 01/25/18 15:12 01/25/18 15:12 01/25/18 15:12 01/25/18 15:12 Vital Signs Reviewed: Yes Appearance: Positive: Well-Appearing, No Pain Distress, Well-Nourished Skin: Positive: Warm, Skin Color Reflects Adequate Perfusion, Dry, Erythema @ - left hand vague erythema of left hand with edema and distal forearm with some streaking appearance, warm to touch, rest of skin exam normal, Other - open/ healing wounds from glucose fingersticks on all digits of left hand. Negative: Cold, Numb, Cyanosis @, Mass @ Head/Face: Positive: Normal Head/Face Inspection ENT: Positive: Pharynx normal Neck: Positive: Supple, Nontender Respiratory/Lung Sounds: Positive: Clear to Auscultation, Breath Sounds Present. Negative: Rales, Rhonchi, Wheezes Cardiovascular: Positive: Normal, RRR, Pulses are Symmetrical in both Upper and Lower Extremities, Other - <2 sec cap refill. Negative: Murmur, Rub Bowel Sounds: Positive: Present Musculoskeletal: Positive: Normal, Strength/ROM Intact, Pain @, Edema Left - left hand diffuse. Negative: Limited @, Interruption @, Edema Right Neurological: Positive: Normal, Sensory/Motor Intact, Alert, Oriented to Person Place, Time, CN Intact II-III, Reflexes Intact, NV Bundle Intact Distally, Normal Gait Diagnostics - Vital Signs Vital Signs Temp Pulse Resp BP Pulse Ox 01/25/18 15:12 98.2 F 100 17 136/56 98 - Laboratory Lab Statement: Any lab studies that have been ordered have been reviewed, and results considered in the medical decision making process. Re-Evaluation - Re-Evaluation First Eval Re-Evaluation Time: 17:18 Change: Unchanged - patient finally obtained IV and lab work, given medication, updated on plan. did have another episode of vomiting. Course/Dx - Course Course Of Treatment: labs obtained. given fluids and clindamycin IV. patient appears to be suffering from an infection and is a diabetic. no open wounds, abscess or discharge, nothing to culture. No MRSA history. blood cultures obtained and pending. does not appear to be septic at this time, normal vitals. no concern for GOUT or DVT or other etiology at this time. Appears to be suffering from cellulitis. no injury or trauma. had xrays obtained at PCP and were normal. will continue tylenol for pain, RICE and antibiotics. follow up pcp in 3 days. Aware of worsening signs/symptoms and to return immediately if occur, understands diabetes can worsen this infection quickly. No other complaints or concerns. - Differential Diagnoses - Skin Complaint Differential Diagnoses: Cellulitis, MRSA, Other - Diagnoses Provider Diagnoses: Cellulitis of hand, left Discharge - Discharge Plan Condition: Stable Disposition: HOME Prescriptions: Clindamycin Cap(NF) [Clindamycin Cap 300 mg Cap(NF)] 300 mg PO QID #40 cap Patient Education Materials: Cellulitis (ED) Referrals: Alexandru Brar MD [Primary Care Provider] - Additional Instructions: Take prescribed antibiotic as directed. Recommend taking probiotics in between doses opposite of antibiotic to replenish normal warren and prevent secondary infection. Tylenol for pain. Rest, ice and elevation. Keep clean and dry. Any new or worsening signs/symptoms please seek medical attention promptly, as we discussed. Follow up with PCP in 3 days to ensure improvement.
[2018-01-25] MEDS ORDERED: Lidocaine 2.5%/Prilocain 2.5%* 5 GM TUBE ONE (16:12)
[2018-01-25] MEDS ORDERED: Lidocaine 2.5%/Prilocain 2.5%* 5 GM TUBE TOPICAL ONE (16:15)
[2018-01-25 17:23] LABS: ABS Basophils 0.1 10^3/ul (0-0.2); ABS Eosinophils 0.1 10^3/ul (0-0.6); ABS Lymphocytes 0.8 10^3/ul (1.0-4.8); ABS Monocytes 0.5 10^3/ul (0-0.8); ABS Neutrophils 10.3 10^3/ul (1.5-7.7); ABS Nucleated RBC 0 10^3/ul; Eosinophil % 0.9 % (0-6); Hematocrit 39 % (35-47); Hemoglobin 12.6 g/dl (12.0-16.0); Lymphocyte % 7.1 % (25-47); Mean Corpuscular HGB Conc 32 g/dl (31-36); Mean Corpuscular Hemoglobin 28 pg (27-31); Mean Corpuscular Volume 85 fL (80-97); Mean Platelet Volume 8 um3 (7.4-10.4); Nucleated Red Blood Cells % 0; Platelet Count 394 10^3/ul (150-450); Red Blood Count 4.58 10^6/ul (4.0-5.4); Red Cell Distribution Width 16 % (10.5-15); White Blood Count 11.8 10^3/ul (3.5-10.8)
[2018-01-25 17:34] LABS: EGFR Non-African American 71.3 (>60)
[2018-01-25 18:08] VITALS: BP 148/58
== END 2018-01-25 18:15 | disposition home or self-care (01) ==
LOC: ED 15:09
DX: L03.114 Cellulitis of left upper limb (principal); R11.10 Vomiting, unspecified; M79.1 Myalgia; E11.8 Type 2 diabetes mellitus with unspecified complications; Z79.84 Long term (current) use of oral hypoglycemic drugs; Z79.4 Long term (current) use of insulin; I48.91 Unspecified atrial fibrillation; Z79.01 Long term (current) use of anticoagulants; I10 Essential (primary) hypertension; E78.00 Pure hypercholesterolemia, unspecified; I73.9 Peripheral vascular disease, unspecified; J45.909 Unspecified asthma, uncomplicated; K21.9 Gastro-esophageal reflux disease without esophagitis; F32.9 Major depressive disorder, single episode, unspecified; Z85.3 Personal history of malignant neoplasm of breast; Z88.5 Allergy status to narcotic agent; Z88.2 Allergy status to sulfonamides
CPT/HCPCS: 36415; 80053; 83605; 85025; 86140; 87040; 96365; 99282; A9270-GY

== ENCOUNTER 2018-11-11 03:02 | Emergency (ER) | payer MEDICARE, OTHER ==
--- OUTSIDE RECORDS SUMMARY | 2018-11-11 03:07 | XMS REPORT | Continuity of Care Document ---
:1950 External Reference #:[id number] Author Name Sarai Guerrero Care Team Providers Name Role Phone Portia Gonzalez MD Care Team Information Telegraphic Service Dispatcher Unavailable Alexandru Brar MD Primary Care Physician Unavailable Payers Type Date Identification Numbers Payment Provider Subscriber Policy Number: [id number] Medicare Marie Russo PayID: [id number] [address] [place] [address] Expires: 2016 Policy Number: [id number] [employer] Jaylan Russo PayID: [id number] [address] [place] [address] Expires: 2016 Policy Number: [id number] [employer] Jaylan Russo PayID: [id number] [address] [place] [address] Policy Number: [id number] [employer] Marie Russo PayID: [id number] [address] [place] [address] Effective: 2016 Policy Number: 70% [employer] [employer] Marie Russo Expires: 2018 PayID: [id number] [address] Advance Directives Description No Information Available Problems Date Description Provider Status Onset: 07/07/2016 Diabetes mellitus Jairon Og, [facility] Active Onset: 12/31/2016 Left bundle branch block Uriel Tapia M.D. Active Onset: 12/31/2016 Atrial flutter Uriel Tapia M.D. Active Family History Date Family Member(s) Problem(s) Comments General Diabetes General Heart Disease General Cancer Social History Type Date Description Comments Sex Unknown Marital Status Lives With Spouse Occupation Retired Tobacco Use Start: Unknown Never Smoked Cigarettes Smoking Status Reviewed: 10/26/18 Never Smoked Cigarettes ETOH Use Denies alcohol use Tobacco Use Start: Unknown Patient has never smoked Recreational Drug Use Denies Drug Use Exercise Type/Frequency Exercises sporadically Allergies, Adverse Reactions, Alerts Date Description Reaction Status Severity Comments 12/13/2013 Morphine Nausea and Vomiting Active Medications Medication Date Status Form Strength Qnty SIG Indications Ordering Provider Isosorbide 01/14 Active Tablets 30mg 90tab 1 by mouth Uriel Mononitrate ER 24HR s every day DHolly Tapia M.D. Propafenone HCL ER 01/04 Active Caps ER 225mg 180ca 1 by mouth Uriel 12HR ps twice a D. Brand, day For M.D. abnormal fast heart rhythm Toprol XL 01/04 Active Tablets 25mg 90tab 1 by mouth Uriel ER 24HR s every day DHolly Brand, for bp and M.DHolly heart rate Magnesium Oxide -MG 12/16 Active Capsules 400mg 90cap 2 tab by Jairon Rizzo s mouth bid DO ALMA Og Xarelto 12/02 Active Tablets 20mg Take 1 Tablet By MD Alexandru Mouth Daily Am Metformin HCL Active Tablet 1000mg take one Unknown /0000 tab PO bid w/ meals Lipitor Active Tablets 80mg take one Unknown /0000 tab PO daily Omeprazole Active Capsules 20mg take 1 cap Unknown /0000 PO daily Humalog Active inject 14 Unknown /0000 units sub-q bid w/ meals Lantus Solostar Active Solution 100Unit/M inject 20 Unknown /0000 Pen-Injec L units t sub-q bid Combivent Respimat Active Aerosol 20-100mcg 1 puffs Unknown /0000 /Act 4-6 times daily as needed Flovent HFA Active Aerosol 220mcg/Ac inhale two Unknown /0000 t puffs by mouth twice a day Tramadol HCL Active Tablets 50mg 1 tab in Unknown /0000 the pm Refresh Active Solution 1.4-0.6% use daily Unknown /0000 as needed for dry eyes Senna Lax Active Tablets 8.6mg take 2 Unknown /0000 tablets by mouth at bedtime as needed: max 4 tablets by mouth two times a day [place] 3 Active Capsules 1000mg 1 by mouth Unknown /0000 qd. Vitamin B12 Active Tablets 1000mcg 1 by mouth Unknown /0000 ER every day Vitamin B Complex Active Tablets 1 by mouth Unknown /0000 every day Glucagon Emergency Active Kit 1mg use as Unknown /0000 directed Guaiatussin ac Active Syrup 100-10mg/ 1-2 Unknown / 5ML teaspoon by mouth every 6 hours as needed for cough Cilostazol Active Tablets 100mg 1 by mouth Unknown /0000 twice a day Quinapril HCL Active Tablets 40mg 1 by mouth Unknown / every day Am Cetirizine HCL Active Tabs 10mg 1 tablet Unknown / by mouth daily in the morning Tenz Unit Active Unknown / Metoclopramide HCL Active Tablets 10mg 1 by mouth Unknown / three times a day as needed nausea or headache Matzim LA (Cardizem Active Tablets 240mg Take 1 Unknown LA) /0000 ER 24HR Tablet By Mouth Daily Multivitamin Adult Active Tablets 1 by mouth Unknown /0000 every day Mag64 Active Tablets 535(64mg) two tabs Unknown ER mg bid Cyclobenzaprine HCL Active Tablets 5mg take one Unknown /0000 tablet by mouth every 8 hours prn. may take a second tablet if first not effetive. Tylenol 8 Hour Active Tablets 650mg 1 by mouth Unknown Arthritis Pain /0000 ER daily as needed Tramadol HCL ER Active Caps ER 100mg 1 by mouth Unknown / 24HR during the day Calcium 600 + D Active Tablets 600-200mg daily Unknown /0000 -Unit Aspirin Adult Low Active Tablets 81mg 1 by mouth Unknown Dose /0000 DR every day Duloxetine HCL Active Caps DR 30mg 1 by mouth Unknown /0000 Part every day Torsemide Active Tablets 20mg Take 1 Unknown /0000 Tablet By Mouth Every Day Klor-Con M20 Active Tablets 20Meq Take 1 Unknown /0000 ER Tablet By Mouth Every Day Klor-Con M20 12/02 Hx Tablets 20Meq Take 1 ER Tablet MD Alexandru - Twice A /2017 Imdur 07/07 Hx Tablets 30mg 30tab 1 tablet I20.9 Jairon S. ER 24HR s by mouth Earel, - every day DO FACC 01/14 [place] 11/08 Hx Tablets 5-325mg 30tab 1-2 tabs s po tid prn Yue, - pain M.D. 02/21 Lantus 00/00 Hx Unknown /0000 - 06/01 Hydrochlorothiazide 00 Hx 25mg take one Unknown /0000 tab PO - once daily 12/02 Toprol XL Hx Tablets 50mg take one Unknown /0000 daily PO - once daily 01/04 Citalopram Hx Unknown Hydrobromide / - 06/02 Norflex / Hx Unknown /0000 - 06/02 Lyrica 0000 Hx Unknown /0000 - 06/02 Nasonex 00/00 Hx Unknown /0000 - 06/02 Orphenadrine Hx Tablets 100mg 1-2 tabs Unknown Citrate ER /0000 ER 12HR daily as - needed 02/21 Aspirin Ec Hx Tablets 81mg 1 by mouth Unknown /0000 DR every day( - No bottle, 12/20 yes takes still) Centrum Adults W/ Hx Tablets take 1 tab Unknown Minerals /0000 PO once a - day 11/30 Ondansetron HCL 0000 Hx Powder 4gm take 1 Unknown /0000 packet PO - bid prn 06/02 Ondansetron 00 Hx Tablets 8mg take 1 Unknown /0000 Dispers under - tongue q8 10/20 hours needed nausea Aleve Hx Capsules 220mg 2 by mouth Unknown /0000 twice a - day as 12/16 needed ( no bottles yes takes) Questran 00 Hx Packet 4gm 1 by mouth Unknown /0000 every day - 10/20 Magnesium Chloride 00/00 Hx 3 tabs PO Unknown /0000 bid - 11/30 Duloxetine HCL [address] 30mg 1 by mouth Unknown /0000 Part every day - 10/20 Vitamin D 0000 Hx Capsules 1000Unit 1 by mouth Unknown (Cholecalciferol) /0000 every day - 12/02 Ginkgo Biloba Hx Capsules 120mg 1 cap Unknown /0000 daily when - remembers 06/26 Furosemide Hx Tablets 20mg Take 1 Uriel /0000 Tablet D. Brand, - Every M.D. 01/02 Day(pt is not taking per Dr. Brar) Slow-Mag Hx Tablets 71.5-119m 3 by mouth Unknown /0000 DR ramires twice a - day 05/11 Medications Administered in Office Medication Date Status Form Strength Qnty SIG Indications Ordering Provider Inj, Administered Injection Jairon SHolly Regadenoson, 016 Og, DO 0.1 MG FACC Technetium TC Administered Injection Jairon S. 99M 016 Og, DO Tetrofosmin, FACC Per Unit Dose Up To 40 Millicuries Immunizations Description No Information Available Vital Signs Date Vital Result Comment 10/26/2018 3:10pm Height 63 inches 5'3" Weight 187.00 lb w/o shoes Heart Rate 80 /min BP Systolic Sitting 150 mmHg Rue reg cuff BP Diastolic Sitting 90 mmHg Rue reg cuff BP Systolic Standing 146 mmHg Rue BP Diastolic Standing 86 mmHg Rue Respiratory Rate 16 /min BMI (Body Mass Index) 33.1 kg/m2 Ejection Fraction 60-65% as of 06/2016 echo 04/01/2018 9:47am Height 63 inches 5'3" Weight 181.00 lb w/o shoes Heart Rate 84 /min reg BP Systolic Sitting 170 mmHg Rue, reg cuff BP Diastolic Sitting 80 mmHg Rue, reg cuff BP Systolic Standing 176 mmHg Rue BP Diastolic Standing 76 mmHg Rue BP Systolic Recheck 146 mmHg Rue BP Diastolic Recheck 74 mmHg Rue Respiratory Rate 16 /min BMI (Body Mass Index) 32.1 kg/m2 Ejection Fraction 60-65% as of 06/2016 echo 10/21/2017 11:18am Height 63 inches 5'3" Weight 177.12 lb without shoes Heart Rate 64 /min BP Systolic 132 mmHg right arm, reg cuff BP Diastolic 58 mmHg right arm, reg cuff BP Systolic Standing 138 mmHg right arm, reg cuff BP Diastolic Standing 58 mmHg right arm, reg cuff BMI (Body Mass Index) 31.4 kg/m2 Ejection Fraction 60-65% 07/13/16 05/12/2017 8:25am Height 62.5 inches 5'2.50" Weight 164.00 lb no shoes Heart Rate 94 /min BP Systolic Sitting 146 mmHg Rue reg cuff BP Diastolic Sitting 76 mmHg Rue reg cuff BP Systolic Standing 148 mmHg Rue reg cuff BP Diastolic Standing 82 mmHg Rue reg cuff Respiratory Rate 17 /min BMI (Body Mass Index) 29.5 kg/m2 Ejection Fraction 60-65% 07/13/2016-echo 03/23/2017 12:41pm Height 62.5 inches 5'2.50" Weight 164.00 lb per pt Heart Rate 102 /min BP Systolic Sitting 138 mmHg Rue, reg cuff BP Diastolic Sitting 70 mmHg Rue, reg cuff BP Systolic Standing 136 mmHg Rue BP Diastolic Standing 80 mmHg Rue Respiratory Rate 16 /min BMI (Body Mass Index) 29.5 kg/m2 Ejection Fraction 60-65% as of 07/13/16 echo 12/31/2016 8:28am Height 62.5 inches 5'2.50" Weight 168.00 lb per pt Heart Rate 76 /min reg BP Systolic Sitting 164 mmHg Lue, reg cuff BP Diastolic Sitting 76 mmHg Lue, reg cuff BP Systolic Standing 156 mmHg Lue BP Diastolic Standing 74 mmHg Lue Respiratory Rate 16 /min BMI (Body Mass Index) 30.2 kg/m2 Ejection Fraction 60-65% as of 07/13/16 echo 12/16/2016 10:51am Height 62.5 inches 5'2.50" Weight 171.00 lb no shoes Heart Rate 123 /min BP Systolic Sitting 194 mmHg Rue reg cuff BP Diastolic Sitting 70 mmHg Rue reg cuff O2 % BldC Oximetry 96 % BMI (Body Mass Index) 30.8 kg/m2 07/16/2016 9:53am Height 62.5 inches 5'2.50" Weight 182.00 lb w/o shoes Heart Rate 74 /min reg BP Systolic Sitting 130 mmHg Rue, reg cuff BP Diastolic Sitting 60 mmHg Rue, reg cuff BP Systolic Standing 124 mmHg Rue BP Diastolic Standing 64 mmHg Rue Respiratory Rate 16 /min BMI (Body Mass Index) 32.8 kg/m2 Ejection Fraction 60-65% 07/13/16 echo 07/07/2016 8:35am Height 62.5 inches 5'2.50" Weight 184.00 lb w/o shoes Heart Rate 66 /min BP Systolic 126 mmHg Rue, lg cuff BP Diastolic 52 mmHg Rue, lg cuff BP Systolic Sitting 128 mmHg Lue, lg cuff BP Diastolic Sitting 56 mmHg Lue, lg cuff BP Systolic Standing 130 mmHg Lue BP Diastolic Standing 60 mmHg Lue Respiratory Rate 16 /min BMI (Body Mass Index) 33.1 kg/m2 01/03/2014 10:26am Heart Rate 70 /min BP Systolic 160 mmHg BP Diastolic 78 mmHg 11/02/2013 8:40am Height 63 inches 5'3" Weight 205.00 lb BMI (Body Mass Index) 36.3 kg/m2 Results Test Date Facility Test Result H/L Range Note Laboratory test 10/26/2018 [facility] Troponin-I 0.05 ng/mL High <0.04 [address] (TnI) [place] [address] [phone] Hemoglobin A1c (Glyco HGB) 7.9 % High 4.0-5.6 2 CBC Auto Diff 10/26/2018 [facility] White Blood 8.5 10^3/uL N 3.5-10.[address] [place] [address] [phone] Red Blood Count 3.76 10^6/uL Low 4.00-5.40 Hemoglobin 9.1 g/dL Low 12.0-16.0 Hematocrit 29 % Low 35-47 Mean Corpuscular Volume 77 fL Low 80-97 Mean Corpuscular Hemoglobin 24 pg Low 27-31 Mean Corpuscular HGB Conc 32 g/dL N 31-36 Red Cell Distribution Width 17 % High 10.5-15 Platelet Count 462 10^3/uL High 150-450 Mean Platelet Volume 7.3 fL Low 7.4-10.4 Abs Neutrophils 5.0 10^3/uL N 1.5-7.7 Abs Lymphocytes 2.1 10^3/uL N 1.0-4.8 Abs Monocytes 0.8 10^3/uL N 0-0.8 Abs Eosinophils 0.5 10^3/uL N 0-0.6 Abs Basophils 0.1 10^3/uL N 0-0.2 Abs Nucleated RBC 0 10^3/uL Granulocyte % 58.9 % Lymphocyte % 24.3 % Monocyte % 9.9 % Eosinophil % 5.4 % Basophil % 1.5 % Nucleated Red Blood Cells % 0 Laboratory test 10/26/2018 [facility] B-Type 524 pg/mL High <= [address] [place] [address] Peptide BNP [phone] Comp Metabolic 10/26/2018 [facility] Sodium 135 N 135-[address] mmol/L [place], [place] [id number] [phone] Potassium 4.6 mmol/L N 3.5-5.0 Chloride 100 mmol/L Low 101-111 Co2 Carbon Dioxide 27 mmol/L N 22-32 Anion Gap 8 mmol/L N 2-11 Glucose 111 mg/dL High 70-100 Blood Urea Nitrogen 15 mg/dL N 6-24 Creatinine 0.86 mg/dL N 0.51-0.95 BUN/Creatinine Ratio 17.4 N 8-20 Calcium 9.0 mg/dL N 8.6-10.3 Total Protein 5.9 g/dL Low 6.4-8.9 Albumin 3.6 g/dL N 3.2-5.2 Globulin 2.3 g/dL N 2-4 Albumin/Globulin Ratio 1.6 N 1-3 Total Bilirubin 0.30 mg/dL N 0.2-1.0 Alkaline Phosphatase 91 U/L N 34-104 Alt 13 U/L N 7-52 Ast 20 U/L N 13-39 Egfr Non- 65.4 >60 Egfr 79.2 >60 3 Basic Metabolic 02/11/2017 [facility] Sodium 132 mmol/L Low 133-[address] [place] [address] [phone] Potassium 4.2 mmol/L N 3.5-5.0 Chloride 100 mmol/L Low 101-111 Co2 Carbon Dioxide 26 mmol/L N 22-32 Anion Gap 6 mmol/L N 2-11 Glucose 268 mg/dL High 70-100 Blood Urea Nitrogen 16 mg/dL N 6-24 Creatinine 0.86 mg/dL N 0.51-0.95 BUN/Creatinine Ratio 18.6 N 8-20 Calcium 8.7 mg/dL N 8.6-10.3 Egfr Non- 65.8 N >60 Egfr 84.6 N >60 4 CBC Auto Diff 02/11/2017 [facility] White Blood 8.8 10^3/uL N 3.5-10.[address] [place] [address] [phone] Red Blood Count 3.71 10^6/uL Low 4.0-5.4 Hemoglobin 10.9 g/dL Low 12.0-16.0 Hematocrit 33 % Low 35-47 Mean Corpuscular Volume 88 fL N 80-97 Mean Corpuscular Hemoglobin 29 pg N 27-31 Mean Corpuscular HGB Conc 34 g/dL N 31-36 Red Cell Distribution Width 14 % N 10.5-15 Platelet Count 296 10^3/uL N 150-450 Mean Platelet Volume 9 um3 N 7.4-10.4 Abs Neutrophils 5.9 10^3/uL N 1.5-7.7 Abs Lymphocytes 2.0 10^3/uL N 1.0-4.8 Abs Monocytes 0.7 10^3/uL N 0-0.8 Abs Eosinophils 0.1 10^3/uL N 0-0.6 Abs Basophils 0.1 10^3/uL N 0-0.2 Abs Nucleated RBC 0 10^3/uL N Granulocyte % 67.2 % N 38-83 Lymphocyte % 23.2 % Low 25-47 Monocyte % 8.3 % N 1-9 Eosinophil % 0.6 % N 0-6 Basophil % 0.7 % N 0-2 Nucleated Red Blood Cells % 0 N Laboratory test 12/16/2016 [facility] Magnesium 1.4 mg/dL Low 1.9-2.7 finding [address] [place] [address] [phone] Comp Metabolic 12/16/2016 [facility] Sodium 136 mmol/L N 133- 145 Panel [address] [place] [address] [phone] Potassium 5.0 mmol/L N 3.5-5.0 Chloride 101 mmol/L N 101-111 Co2 Carbon Dioxide 30 mmol/L N 22-32 Anion Gap 5 mmol/L N 2-11 Glucose 121 mg/dL High 70-100 Blood Urea Nitrogen 13 mg/dL N 6-24 Creatinine 0.80 mg/dL N 0.51-0.95 BUN/Creatinine Ratio 16.3 N 8-20 Calcium 9.5 mg/dL N 8.6-10.3 Total Protein 6.2 g/dL Low 6.4-8.9 Albumin 3.7 g/dL N 3.2-5.2 Globulin 2.5 g/dL N 2-4 Albumin/Globulin Ratio 1.5 N 1-3 Total Bilirubin 0.30 mg/dL N 0.2-1.0 Alkaline Phosphatase 105 U/L High 34-104 Alt 14 U/L N 7-52 Ast 21 U/L N 13-39 Egfr Non- 71.5 N >60 Egfr 92.0 N >60 5 CBC Auto Diff 12/16/2016 [facility] White Blood 8.5 10^3/uL N 3.5-10.[address] [place] [address] [phone] Red Blood Count 4.18 10^6/uL N 4.0-5.4 Hemoglobin 12.3 g/dL N 12.0-16.0 Hematocrit 37 % N 35-47 Mean Corpuscular Volume 89 fL N 80-97 Mean Corpuscular Hemoglobin 29 pg N 27-31 Mean Corpuscular HGB Conc 33 g/dL N 31-36 Red Cell Distribution Width 15 % N 10.5-15 Platelet Count 424 10^3/uL N 150-450 Mean Platelet Volume 8 um3 N 7.4-10.4 Abs Neutrophils 4.4 10^3/uL N 1.5-7.7 Abs Lymphocytes 3.1 10^3/uL N 1.0-4.8 Abs Monocytes 0.8 10^3/uL N 0-0.8 Abs Eosinophils 0.2 10^3/uL N 0-0.6 Abs Basophils 0.1 10^3/uL N 0-0.2 Abs Nucleated RBC 0 10^3/uL N Granulocyte % 51.5 % N 38-83 Lymphocyte % 35.9 % N 25-47 Monocyte % 9.1 % High 1-9 Eosinophil % 2.2 % N 0-6 Basophil % 1.3 % N 0-2 Nucleated Red Blood Cells % 0 N Laboratory test 11/26/2016 [facility] Troponin-I 0.16 ng/mL High <0.04 [address] (TnI) [place] [address] [phone] Laboratory test 11/26/2016 [facility] Point of Care 135 mg/dL High 74-106 [address] [place] [address] [phone] 1 Troponin-I testing on Plasma Separator Tubes (PST) has a known false positive rate of 0.20-0.40%. All positive troponins reflex immediate secondary confirmatory testing. 2 Therapeutic target for the treatment of diabetes mellitus patients is <7% HBA1C, and in selective patients <6.0%. Please refer to [place] [employer] diabetic care guidelines for further information. 3 Because ethnic data is not always readily available, this report includes an eGFR for both -Americans and non- Americans. The National Kidney Disease Education Program (NKDEP) does not endorse the use of the MDRD equation for patients that are not between the ages of 18 and 70, are , have extremes of body size, muscle mass, or nutritional status, or are non- or non-. According to the National Kidney Foundation, irrespective of diagnosis, the stage of the disease is based on the level of kidney function: Stage Description GFR(mL/min/1.73 m(2)) 1 Kidney damage with normal or decreased GFR 90 2 Kidney damage with mild decrease in GFR 60-89 3 Moderate decrease in GFR 30-59 4 Severe decrease in GFR 15-29 5 Kidney failure <15 (or dialysis) 4 Because ethnic data is not always readily available, this report includes an eGFR for both -Americans and non- Americans. The National Kidney Disease Education Program (NKDEP) does not endorse the use of the MDRD equation for patients that are not between the ages of 18 and 70, are , have extremes of body size, muscle mass, or nutritional status, or are non- or non-. According to the National Kidney Foundation, irrespective of diagnosis, the stage of the disease is based on the level of kidney function: Stage Description GFR(mL/min/1.73 m(2)) 1 Kidney damage with normal or decreased GFR 90 2 Kidney damage with mild decrease in GFR 60-89 3 Moderate decrease in GFR 30-59 4 Severe decrease in GFR 15-29 5 Kidney failure <15 (or dialysis) 5 Because ethnic data is not always readily available, this report includes an eGFR for both -Americans and non- Americans. The National Kidney Disease Education Program (NKDEP) does not endorse the use of the MDRD equation for patients that are not between the ages of 18 and 70, are , have extremes of body size, muscle mass, or nutritional status, or are non- or non-. According to the National Kidney Foundation, irrespective of diagnosis, the stage of the disease is based on the level of kidney function: Stage Description GFR(mL/min/1.73 m(2)) 1 Kidney damage with normal or decreased GFR 90 2 Kidney damage with mild decrease in GFR 60-89 3 Moderate decrease in GFR 30-59 4 Severe decrease in GFR 15-29 5 Kidney failure <15 (or dialysis) 6 Result TnIDx:0.16 Called to [id number] at: 18:30:37 by:[id number] Read back by: [id number] 99th percentile=0.04 ng/mL Troponin results at [facility] and [facility] are not interchangeable. 7 Sheet Cutter: [id number] Tomi Wallace Procedures Date Code Description Status 10/26/2018 39540 EKG Tracing & Interpretation Completed 06/17/2018 18790 Nerve Conduction 05-06 Studies Completed 04/01/2018 09303 EKG Tracing & Interpretation Completed 05/12/2017 19818 EKG Tracing & Interpretation Completed 03/29/2017 36137 Mobile Cardiovascular Telemetry Over 24 HR Up To 30 Days Completed 03/29/2017 61653 Cardioversion Completed 03/23/2017 34814 EKG Tracing & Interpretation Completed 12/31/2016 23097 EKG Tracing & Interpretation Completed 12/16/2016 68960 EKG Tracing & Interpretation Completed 11/28/2016 44765 EKG, Interpretation Only Completed 11/27/2016 05104 Cardioversion Completed 11/27/2016 28956 EKG, Interpretation Only Completed 11/27/2016 63237 EKG, Interpretation Only Completed 11/27/2016 63980 Echocardiography, Transesophageal, Real Time W/Image 2D Completed W/W/O M-M 11/27/2016 78630 Pulse Wave/Continuous-Interp.RPT Completed 11/27/2016 07710 Color Flow Doppler/Interp & Reprt Completed 11/26/2016 71648 EKG, Interpretation Only Completed 07/13/2016 83164 ECHO Transthoracic, Real-Time 2D With Doppler And Color Completed Flow 07/08/2016 77087 Stress Test Completed 07/08/2016 06105 Myocardial Perfusion Imaging Tomographic (Spect) Multiple Completed Studies 07/07/2016 92894 EKG Tracing & Interpretation Completed 12/21/2013 22126 Laparoscopy Cholecystectomy Completed 12/18/2013 23222 EKG, Interpretation Only Completed 12/13/2013 90583 Rad Exam; Foot Comp Completed 11/08/2013 99808 Rad Exam; Foot Comp Completed 11/02/2013 44511 FX Metatarsal Care Completed 08/02/2012 38138 Rad Shoulder Comp, Min. 2 Views Completed 11/21/2007 76062 EKG, Interpretation Only Completed Encounters Type Date Location Provider Dx Diagnosis Office Visit 04/01/2018 [facility] Uriel Tapia I48.4 Atypical atrial 10:00a Of [place] flutter I44.7 Left bundle-branch block, unspecified Office Visit 10/21/2017 11:00a Noah Marin I48.4 Atypical atrial Cardiology Peggy Tapia flutter I44.7 Left bundle-branch block, unspecified I10 Essential (primary) hypertension Office Visit 05/12/2017 8:45a [facility] Heber Marin I48.4 Atypical atrial Of B[place] Tapia M.D. flutter I44.7 Left bundle-branch block, unspecified Office Visit 03/23/2017 1:00p [facility] Heber Marin I48.4 Atypical atrial Of [employer]st [facility] [place] Peggy Tapia flutter I44.7 Left bundle-branch block, unspecified Office Visit 01/04/2017 12:15p [facility] Uriel Marin I48.92 Unspecified Of [place] Tapia M.D. atrial flutter I44.7 Left bundle-branch block, unspecified Office Visit 01/04/2017 2:40p [facility] Saji Lazo I48.4 Atypical Assoc,vashti DE M.D. 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 atrial flutter I44.7 Left bundle-branch block, unspecified I50.9 Heart failure, unspecified Office Visit 12/16/2016 11:15a [facility] Jairon Rizzo R00.0 Tachycardia, Of Bora Og DO unspecified FACC I48.92 Unspecified atrial flutter E11.69 Type 2 diabetes mellitus with other specified complication I44.7 Left bundle-branch block, unspecified I10 Essential (primary) hypertension E78.5 Hyperlipidemia, unspecified I11.0 Hypertensive heart disease with heart failure Office Visit 11/28/2016 [facility] Saji Frankenberg I50.9 Heart failure, 8:16a vashti Tam II, M.D. unspecified Hospitalists Office Visit 11/26/2016 [facility] Taqueria العلي I48.92 Unspecified 4:22p Peggy Lama atrial flutter I50.9 Heart failure, unspecified Office Visit 11/26/2016 [facility] Penny Lentz I48.92 Unspecified 8:14a vashti Tam M.D. atrial flutter Hospitalists I50.9 Heart failure, unspecified E83.42 Hypomagnesemia Office Visit 07/16/2016 10:20a [facility] Jairon SHolly I11.9 Hypertensive heart Of Bora Og DO disease without FACC heart failure I20.9 Angina pectoris, unspecified E11.69 Type 2 diabetes mellitus with other specified complication I44.7 Left bundle-branch block, unspecified I10 Essential (primary) hypertension E78.5 Hyperlipidemia, unspecified Office Visit 07/07/2016 9:00a [facility] Jairon Rizzo I20.9 Angina pectoris, Of Bora Og DO unspecified FACC I44.7 Left bundle-branch block, unspecified E11.69 Type 2 diabetes mellitus with other specified complication I73.9 Peripheral vascular disease, unspecified I10 Essential (primary) hypertension E78.5 Hyperlipidemia, unspecified R07.9 Chest pain, unspecified Office Visit 09/13/2012 9:15a Sam Garcia, 716.91 Arthropathy Unspec Services Of [facility] Office Visit 08/02/2012 3:30p Sam Garcia 726.2 [facility] Services [facility] Affections Other C.M.[facility] Not Elsewhere Class Plan of Treatment 10/26/2018 - Uriel Tapia M.D.I48.4 Atypical atrial flutterNew Orders: Cardioversion, Ordered: 10/26/18Referral:Coral Anthony MD, Cardiac Electrphsyly/ CLNCFollow up:3 lhlxlgS40.7 Left bundle-branch block, blchfchafazV37.8 Abnormal levels of other serum enzymes
--- OUTSIDE RECORDS SUMMARY | 2018-11-11 03:08 | XMS REPORT | Continuity of Care Document ---
:1950 External Reference #:[id number] Author Name Julissa Jensen Care Team Providers Name Role Phone Portia Gonzalez MD Care Team Information Educational Aid Unavailable Alexandru Brar MD Primary Care Physician Unavailable Payers Type Date Identification Numbers Payment Provider Subscriber Policy Number: [id number] Medicare Marie Russo PayID: [id number] [address] [place] [address] Expires: 2016 Policy Number: [id number] [employer] Jaylan Russo PayID: [id number] [address] [place] [address] Expires: 2016 Policy Number: [id number] [employer] Jaylan Russo PayID: [id number] [address] [place] [address] Policy Number: [id number] [employer] Marie Russo PayID: [id number] [address] [place] [address] Effective: 2016 Policy Number: 70% [employer] Marie Russo Expires: 2018 PayID: [id number] [address] Advance Directives Description No Information Available Problems Date Description Provider Status Onset: 07/07/2016 Diabetes mellitus Jairon Og DO [facility] Active Onset: 12/31/2016 Left bundle branch block [...] Active Capsules 20mg take 1 cap Unknown / PO daily Humalog Active inject 14 Unknown [...] tablets by mouth two times a day [place] 3 Active Capsules 1000mg 1 by mouth [...] ER Tablet MD Alexandru - Twice A Imdur 07/07 Hx Tablets 30mg 30tab 1 tablet I20.9 Jairon S. /2015 ER 24HR s by mouth Earle, - every day DO FACC 01/14 [place] 11/08 Hx Tablets 5-325mg 30tab 1-2 tabs s po tid prn Yue, - pain M.D. 02/21 Lantus 00/00 Hx Unknown /0000 - 06/01 Hydrochlorothiazide Hx 25mg take one Unknown /0000 tab PO - once daily 12/02 Toprol XL Hx Tablets 50mg take one Unknown /0000 daily PO - once daily 01/04 Citalopram Hx Unknown Hydrobromide /0000 - 06/02 Norflex / Hx Unknown /0000 - 06/02 Lyrica 00 Hx Unknown /0000 - 06/02 Nasonex 00/00 Hx Unknown /0000 - 06/02 Orphenadrine 00 Hx Tablets 100mg 1-2 tabs Unknown Citrate ER /0000 ER 12HR daily as - needed 02/21 Aspirin Ec 00 Hx Tablets 81mg 1 by mouth Unknown [...] Tablets 20mg Take 1 Uriel /0000 Tablet Tomas Brand, - Every M.D. 01/02 Day(pt is not taking per Dr. Brar) Slow-Mag Hx Tablets 71.5-119m 3 by mouth Unknown /0000 DR ramires twice a - day 05/11 Medications Administered in Office Medication Date Status Form Strength Qnty SIG Indications Ordering Provider Inj, Administered Injection Jairon Rizzo Regadenoson, 016 Og, 0.1 MG FACC Technetium TC Administered Injection [...] Result H/L Range Note Laboratory test 10/26/2018 [facility] Troponin-I 0.05 ng/mL High <0.[address] (TnI) [place] [address] [phone] Hemoglobin A1c (Glyco HGB) 7.9 % High 4.0-5.6 2 CBC Auto Diff 10/26/2018 [facility] White Blood 8.5 10^3/uL N 3.5-10.[address] [place] [address] [phone] Red Blood Count 3.76 10^6/uL Low 4.00-5.40 [...] Blood Cells % 0 Laboratory test 10/26/2018 [facility] B-Type 524 pg/mL High <= [address] [place] [address] Peptide BNP [phone] Comp Metabolic 10/26/2018 [facility] Sodium 135 N 135-[address] mmol/L [place], [place] [id number] [phone] Potassium 4.6 mmol/L N 3.5-5.0 Chloride 100 [...] Egfr 79.2 >60 3 Basic Metabolic 02/11/2017 [facility] Sodium 132 mmol/L Low 133-[address] [place] [address] [phone] Potassium 4.2 mmol/L N 3.5-5.0 Chloride 100 [...] N >60 4 CBC Auto Diff 02/11/2017 [facility] White Blood 8.8 10^3/uL N 3.5-10.[address] [place] [address] [phone] Red Blood Count 3.71 10^6/uL Low 4.0-5.4 [...] Cells % 0 N Laboratory test 12/16/2016 [facility] Magnesium 1.4 mg/dL Low 1.9-2.7 finding [address] [place] [address] [phone] Comp Metabolic 12/16/2016 [facility] Sodium 136 mmol/L N 133- 145 Panel [address] [place] [address] [phone] Potassium 5.0 mmol/L N 3.5-5.0 Chloride 101 [...] N >60 5 CBC Auto Diff 12/16/2016 [facility] White Blood 8.5 10^3/uL N 3.5-10.[address] [place] [address] [phone] Red Blood Count 4.18 10^6/uL N 4.0-5.4 [...] Cells % 0 N Laboratory test 11/26/2016 [facility] Troponin-I 0.16 ng/mL High <0.04 [address] (TnI) [place] [address] [phone] Laboratory test 11/26/2016 [facility] Point of Care 135 mg/dL High 74-106 [address] [place] [address] [phone] 1 Troponin-I testing on Plasma Separator Tubes (PST) has a known false positive rate of 0.20-0.40%. All positive troponins reflex immediate secondary confirmatory testing. 2 Therapeutic target for the treatment of diabetes mellitus patients is <7% HBA1C, and in selective patients <6.0%. Please refer to [place] [employer] diabetic care guidelines for further [...] (or dialysis) 6 Result TnIDx:0.16 Called to [id number] at: 18:30:37 by:[id number] Read back by: [id number] 99th percentile=0.04 ng/mL Troponin results at [facility] and [facility] are not interchangeable. 7 Computer Numerical Control Machinist: [id number] Tomi Wallace Procedures Date Code Description Status 10/26/2018 13565 EKG Tracing & Interpretation Completed 06/17/2018 54921 Nerve Conduction 05-06 Studies Completed 04/01/2018 45629 EKG Tracing & Interpretation Completed 05/12/2017 65594 EKG Tracing & Interpretation Completed 03/29/2017 66093 Mobile Cardiovascular Telemetry Over 24 HR Up To 30 Days Completed 03/29/2017 12717 Cardioversion Completed 03/23/2017 74669 EKG Tracing & Interpretation Completed 12/31/2016 76574 EKG Tracing & Interpretation Completed 12/16/2016 05001 EKG Tracing & Interpretation Completed 11/28/2016 86973 EKG, Interpretation Only Completed 11/27/2016 84885 Cardioversion Completed 11/27/2016 07453 EKG, Interpretation Only Completed 11/27/2016 60205 EKG, Interpretation Only Completed 11/27/2016 13667 Echocardiography, Transesophageal, Real Time W/Image 2D Completed W/W/O M-M 11/27/2016 04790 Pulse Wave/Continuous-Interp.RPT Completed 11/27/2016 11785 Color Flow Doppler/Interp & Reprt Completed 11/26/2016 43803 EKG, Interpretation Only Completed 07/13/2016 15838 ECHO Transthoracic, Real-Time 2D With Doppler And Color Completed Flow 07/08/2016 84080 Stress Test Completed 07/08/2016 29872 Myocardial Perfusion Imaging Tomographic (Spect) Multiple Completed Studies 07/07/2016 36976 EKG Tracing & Interpretation Completed 12/21/2013 31269 Laparoscopy Cholecystectomy Completed 12/18/2013 21913 EKG, Interpretation Only Completed 12/13/2013 05836 Rad Exam; Foot Comp Completed 11/08/2013 55789 Rad Exam; Foot Comp Completed 11/02/2013 17019 FX Metatarsal Care Completed 08/02/2012 73705 Rad Shoulder Comp, Min. 2 Views Completed 11/21/2007 80015 EKG, Interpretation Only Completed Encounters Type Date Location Provider Dx Diagnosis Office Visit 04/01/2018 [facility] Uriel Tapia I48.4 Atypical atrial 10:00a Of [place] flutter I44.7 Left bundle-branch block, unspecified Office Visit 10/21/2017 11:00a Noah Marin I48.4 Atypical atrial Cardiology Peggy Tapia flutter I44.7 Left bundle-branch block, unspecified I10 Essential (primary) hypertension Office Visit 05/12/2017 8:45a [facility] Heber Marin I48.4 Atypical atrial Of Bora Tapia M.D. flutter I44.7 Left bundle-branch block, unspecified Office Visit 03/23/2017 1:00p [facility] Heber Marin I48.4 Atypical atrial Of Yarn [place] Examiner [facility] Peggy Tapia flutter I44.7 Left bundle-branch block, unspecified Office Visit 01/04/2017 12:15p [facility] Uriel Marin I48.92 Unspecified Of [place] Tapia M.D. 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 atrial flutter I44.7 Left bundle-branch block, unspecified I50.9 Heart failure, unspecified Office Visit 12/16/2016 11:15a [facility] Jairon Rizzo R00.0 Tachycardia, Of [place] Og, DO unspecified FACC I48.92 Unspecified atrial flutter E11.69 Type 2 diabetes mellitus with other specified complication I44.7 Left bundle-branch block, unspecified I10 Essential (primary) hypertension E78.5 Hyperlipidemia, unspecified I11.0 Hypertensive heart disease with heart failure Office Visit 11/28/2016 [facility] Saji Frankenberg I50.9 Heart failure, 8:16a vashti Tam II, M.D. unspecified Hospitalists Office Visit 11/26/2016 [facility] Tqaueria العلي I48.92 Unspecified 4:22p Peggy Lama atrial flutter I50.9 Heart failure, unspecified Office Visit 11/26/2016 [facility] Penny Lentz I48.92 Unspecified 8:14a vashti Tam M.D. atrial flutter Hospitalists I50.9 Heart failure, unspecified E83.42 Hypomagnesemia Office Visit 07/16/2016 10:20a [facility] Jairon Rizzo I11.9 Hypertensive heart Of Bora Og DO disease without FACC heart failure I20.9 Angina pectoris, unspecified E11.69 Type 2 diabetes mellitus with other specified complication I44.7 Left bundle-branch block, unspecified I10 Essential (primary) hypertension E78.5 Hyperlipidemia, unspecified Office Visit 07/07/2016 9:00a [facility] Jairon Rizzo I20.9 Angina pectoris, Of Bora Og DO unspecified FACC I44.7 Left bundle-branch block, unspecified E11.69 Type 2 diabetes mellitus with other specified complication I73.9 Peripheral vascular disease, unspecified I10 Essential (primary) hypertension E78.5 Hyperlipidemia, unspecified R07.9 Chest pain, unspecified Office Visit 09/13/2012 9:15a Sam Garcia, 716.91 Arthropathy Unspec [facility] Of [facility] C[facility]. Office Visit 08/02/2012 3:30p Orthopedic Major Garcia 726.2 Shoulder Region Services Of M.D. Affections Other C.M.A. Not Elsewhere Class Plan of Treatment Future Appointment(s):11/01/2018 9:30 am - Uriel [facility] M.D. at [facility]10/26/2018 - Uriel Tapia M.D.I48.4 Atypical atrial flutterNew Orders:Cardioversion, Ordered: 10/26/18Referral:Coral Anthony MD, Cardiac Electrphsyly/CLNCFollow up:3 grugoeG00.7 Left bundle-branch block, ebnbodvgusmZ94.8 Abnormal levels of other serum enzymes
--- NOTE | 2018-11-11 03:24 | ED ---
HPI Chest Pain - HPI Summary HPI Summary: This patient is a 68 year old F presenting [facility] accompanied by a male with a chief complaint of tight CP since three hours ago. The CP is resolved in the ED. Patient reports nausea, diaphoresis, palpitations, and bilateral arm pain. She noticed the pain at midnight, waited an hour, and the pain was still present. Following, her other symptoms appeared and she decided to come to the ED. She took four baby Aspirin at home. PMHX Afib. Vitals in the room: HR 75 bpm , BP 194/95. - History of Current Complaint Chief Complaint: EDChestPainROMI Time Seen by Provider: 11/11/18 03:14 Hx Obtained From: Patient Onset/Duration: Started Hours Ago - 00:00 Timing: Intermittent Current Severity: None Pain Intensity: 0 Pain Scale Used: 0-10 Numeric Character: Tightness Alleviating Factor(s): OTC Meds - baby aspirin Associated Signs and Symptoms: Positive: Chest Pain, Diaphoresis, Nausea, Palpitations - Additional Pertinent History Primary Care Physician: MANNY - Allergy/Home Medications Allergies/Adverse Reactions: Allergies Allergy/AdvReac Type Severity Reaction Status Date / Time Sulfa (Sulfonamide Allergy See Comment Verified 11/11/18 03:09 Antibiotics) morphine AdvReac Dizziness Verified 11/11/18 03:09 PMH/Surg Hx/FS Hx/Imm Hx Endocrine/Hematology History: Reports: Hx Diabetes Denies: Hx Anticoagulant Therapy, Hx Blood Disorders, Hx Blood Transfusions, Hx Bone Marrow Disease, Hx Systemic Lupus Erythematosus, Hx Sickle Cell Disease , Hx Thyroid Disease, Hx Anemia, Hx Unexplained Bleeding, Other Endocrine/ Hematological Disorders Cardiovascular History: Reports: Hx Atrial Fibrillation, Hx Hypercholesterolemia , Hx Hypertension, Hx Peripheral Vascular Disease, Hx Rheumatic Fever - as a child Denies: Hx Angina, Hx Cardiomegaly, Hx Congestive Heart Failure, Hx Coronary Artery Disease, Hx Pacemaker/ICD, Hx Valvular Heart Disease Respiratory History: Reports: Hx Asthma - childhood only, uses inhaler occasionally, Hx Pneumonia - childhood Denies: Hx Chronic Bronchitis, Hx Chronic Obstructive Pulmonary Disease (COPD ), Hx Cystic Fibrosis, Hx Lung Cancer, Hx Pleural Effusion, Hx Pulmonary Edema, Hx Pulmonary Embolism, Hx Seasonal Allergies, Hx Sleep Apnea, Other Respiratory Problems/Disorders GI History: Reports: Hx Gall Bladder Disease, Hx Gastroesophageal Reflux Disease , Hx Irritable Bowel, Other GI Disorders - polyps, GERD Denies: Hx Cirrhosis, Hx Crohn's Disease, Hx Hiatal Hernia, Hx Jaundice, Hx Ulcer Musculoskeletal History: Reports: 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 Denies: Hx Bursitis, Hx Osteoporosis, Hx Scoliosis, Hx Tendonitis Comment Only: Hx Rheumatoid Arthritis - osteo vs. rheumatoid Sensory History: Reports: Hx Cataracts - surgical repair, Hx Contacts or Glasses , Hx Vision Problem Denies: Hx Eye Injury, Hx Eye Prosthesis, Hx Glaucoma, Hx Legally Blind, Hx Macular Degeneration, Hx Deafness, Hx Hearing Aid, Hx Hearing Problem, Other Sensory Impairments Opthamlomology History: Reports: Hx Cataracts - surgical repair, Hx Contacts or Glasses, Hx Vision Problem Denies: Hx Eye Injury, Hx Eye Prosthesis, Hx Glaucoma, Hx Legally Blind, Hx Macular Degeneration, Other Sensory Impairments Neurological History: Denies: Hx Dementia, Hx Headaches, Hx Migraine, Hx Nerve Disease, Hx Seizures , Hx Spinal Cord Injury, Hx Transient Ischemic Attacks (TIA), Other Neuro Impairments/Disorders Psychiatric History: Reports: Hx Depression Denies: Hx Anxiety - Cancer History Cancer Type, Location and Year: BREAST CANCER Hx Chemotherapy: No Hx Radiation Therapy: No Hx Palliative Cancer Treatment: Yes - LUMPECTOMY - Surgical History Surgery Procedure, Year, and Place: tonsillectomy, neck surgery, hysterectomy, bilat cataract surgery, LEFT FIBULA FX, LEFT BREAST LUMPECTOMY. Hx Anesthesia Reactions: No - Immunization History Date of Tetanus Vaccine: Unk Date of Influenza Vaccine: Fall 2013 Infectious Disease History: No Infectious Disease History: Denies: Hx Clostridium Difficile, Hx Hepatitis, Hx Human Immunodeficiency Virus (HIV), Hx of Known/Suspected MRSA, Hx Shingles, Hx Tuberculosis, Hx Known/ Suspected VRE, Hx Known/Suspected VRSA, History Other Infectious Disease, Traveled Outside the [place] in Last 30 Days - Family History Known Family History: Positive: Cardiac Disease - father, Other - CA - mother Family History: Breast CA - Social History Alcohol Use: None Substance Use Type: Reports: None Substance Use Comment - Amount & Last Used: Ultram ER Smoking Status (MU): Never Smoked Tobacco Review of Systems Positive: Skin Diaphoresis Positive: Palpitations, Chest Pain Positive: Nausea Positive: Myalgia - bilateral arm pain All Other Systems Reviewed And Are Negative: Yes Physical Exam - Summary Physical Exam Summary: Appearance: Well-appearing, Well-nourished, lying in bed comfortably Skin: Warm, dry, no obvious rash Eyes: sclera anicteric, no conjunctival pallor ENT: mucous membranes moist, pharynx appears normal Neck: Supple, nontender Respiratory: Clear to auscultation, no signs of respiratory distress Cardiovascular: Normal S1, S2. No murmurs. Normal distal pulses in tibial and radial bilaterally. S3 gallop rhythm. Abdomen: Soft, nontender, normal active bowel sounds present Musculoskeletal: Normal, Strength/ROM Intact Neurological: A&Ox3, awake and alert, mentation is normal, speech is fluent and appropriate Psychiatric: affect is normal, does not appear anxious or depressed Triage Information Reviewed: Yes Vital Signs On Initial Exam: Initial Vitals Temp Pulse Resp BP Pulse Ox 97.4 F 86 16 173/58 96 11/11/18 03:02 11/11/18 03:02 11/11/18 03:02 11/11/18 03:02 11/11/18 03:02 Vital Signs Reviewed: Yes Diagnostics - Vital Signs Vital Signs Temp Pulse Resp BP Pulse Ox 11/11/18 03:02 97.4 F 86 16 173/58 96 - Laboratory Result Diagrams: 11/11/18 03:26 11/11/18 03:26 Lab Statement: Any lab studies that have been ordered have been reviewed, and results considered in the medical decision making process. - Radiology CXR Radiology Interpretation Completed By: ED Physician Summary of Radiographic Findings: No acute disease, pending official report - EKG 3:13 Cardiac Rate: NL - 79 bpm EKG Rhythm: Sinus Rhythm Summary of EKG Findings: LBBB, similar to previous on 11/01 Chest Pain Course/Dx - Course Course Of Treatment: This patient is a 68 year old F presenting to [facility] accompanied by a male with a chief complaint of tight CP since three hours ago. The CP is resolved in the ED. Patient reports nausea, diaphoresis, palpitations , and bilateral arm pain. She felt well during the day yesterday and when she went to bed, symptoms began soon after lying down asleep. Her cardiac history is limited to atrial flutter, she had a negative perfusion study in 2016. Her EKG does not demonstrate any significant change from prior nor any ischemic change. First troponin is negative. We'll continue to observe and obtain second troponin. An EKG reveals NSR 79 bpm, LBBB, similar to previous on . CXR reveals, per ED physician, no acute disease. Pending official radiology report. Test results with no significant abnormalities except for troponin .07 H and .09 H. In the ED course the patient was given Lidocaine. Patient will be discharged with follow up from Dr. Tapia. The patient is agreeable with this plan. - Diagnoses Provider Diagnoses: Chest pain Discharge - Sign-Out/Discharge Documenting (check all that apply): Patient Departure - discharge - Discharge Plan Condition: Good Disposition: HOME Patient Education Materials: Chest Pain (ED) Referrals: Uriel Tapia MD [Medical Doctor] - Additional Instructions: Please call Dr. Tapia's office today to arrange followup. He may wish to send you for further testing, but we have not found any evidence of injury to your heart tonight. - Billing Disposition and Condition Condition: GOOD Disposition: Home - Attestation Statements Document Initiated by Jacob: Yes Documenting Scribe: Ivan Prasad Provider For Whom Jacob is Documenting (Include Credential): Atif Lord MD Scribe Attestation: IIvan, tomasibed for Atif Lodr MD on 11/13/18 at 1108. Scribe Documentation Reviewed: Yes Provider Attestation: The documentation as recorded by the Ivan kidd accurately reflects the service I personally performed and the decisions made by me, Atif Lord MD Status of Scribe Document: Viewed
[2018-11-11] MEDS ORDERED: Lidocaine 2.5%/Prilocain 2.5%* 5 GM TUBE ONE (03:35)
[2018-11-11 03:50] LABS: ABS Basophils 0.1 10^3/ul (0-0.2); ABS Eosinophils 0.3 10^3/ul (0-0.6); ABS Lymphocytes 1.9 10^3/ul (1.0-4.8); ABS Monocytes 0.7 10^3/ul (0-0.8); ABS Neutrophils 6.4 10^3/ul (1.5-7.7); ABS Nucleated RBC 0 10^3/ul; Eosinophil % 3.2 %; Hematocrit 29 % (35-47); Hemoglobin 9.2 g/dl (12.0-16.0); Mean Corpuscular HGB Conc 32 g/dl (31-36); Mean Corpuscular Hemoglobin 24 pg (27-31); Mean Corpuscular Volume 76 fL (80-97); Mean Platelet Volume 8.2 fL (7.4-10.4); Nucleated Red Blood Cells % 0; Platelet Count 331 10^3/ul (150-450); Red Blood Count 3.83 10^6/ul (4.00-5.40); Red Cell Distribution Width 18 % (10.5-15); White Blood Count 9.4 10^3/ul (3.5-10.8)
[2018-11-11 04:04] LABS: Albumin 3.6 g/dL (3.2-5.2); Albumin/Globulin Ratio 1.5 (1-3); BUN/Creatinine Ratio 24.1 (8-20); Calcium 8.4 mg/dL (8.6-10.3); EGFR Non-African American 72.2 (>60); Globulin 2.4 g/dL (2-4); Potassium 4.4 mmol/L (3.5-5.0); Total Bilirubin 0.2 mg/dL (0.2-1.0)
[2018-11-11 06:36] VITALS: BP 166/82
== END 2018-11-11 06:40 | disposition home or self-care (01) ==
LOC: ED 03:02
DX: R07.9 Chest pain, unspecified (principal); I44.7 Left bundle-branch block, unspecified; E11.8 Type 2 diabetes mellitus with unspecified complications; I48.91 Unspecified atrial fibrillation; E78.00 Pure hypercholesterolemia, unspecified; Z88.2 Allergy status to sulfonamides; Z88.5 Allergy status to narcotic agent; I10 Essential (primary) hypertension; Z85.3 Personal history of malignant neoplasm of breast
CPT/HCPCS: 36415; 71045; 80053; 84484; 85025; 93005; 99283; A9270-GY

== ENCOUNTER 2023-06-28 09:46 | Observation (INO) ==
[2023-06-28 10:13] LABS: ABS Basophils 0.1 10^3/uL (0.0-0.1); ABS Eosinophils 0.3 10^3/uL (0.0-0.5); ABS Lymphocytes 1.2 10^3/uL (1.0-4.8); ABS Monocytes 0.9 10^3/uL (0.0-0.9); ABS Neutrophils 5.4 10^3/uL (1.5-7.6); ABS Nucleated RBC 0.01 10^3/ul; Eosinophil % 4.4 %; Hematocrit 34.1 % (35-45); Hemoglobin 11.2 g/dL (11.5-14.3); Lymphocyte % 15.3 %; Mean Corpuscular Hemoglobin 28.5 pg (27-33); Mean Corpuscular Hgb Conc 32.9 g/dL (31-36); Mean Corpuscular Volume 86.5 fL (80-97); Mean Platelet Volume 7.6 fL (7.5-11.2); Nucleated Red Blood Cells % 0.1 /100 WBC (0.0-0.4); Platelet Count 307 10^3/uL (150-450); Red Blood Count 3.94 10^6/uL (3.63-4.92); Red Cell Distribution Width 14.7 % (12-17); White Blood Count 7.9 10^3/uL (3.8-11.8)
[2023-06-28 10:28] LABS: Albumin 3.8 g/dL (3.2-5.2); Albumin/Globulin Ratio 1.3 (1-3); Calcium 8.5 mg/dL (8.6-10.3); Creatinine, Serum 1.42 mg/dL (0.51-0.95); Globulin 2.9 g/dL (2-4); Total Bilirubin 0.4 mg/dL (0.2-1.0); Total Protein 6.7 g/dL (6.4-8.9); eGFR CKD-EPI 38.8 (>60)
[2023-06-28 10:36] LABS: INR 1.16 (0.88-1.18)
[2023-06-28] MEDS ORDERED: NS 0.9% 500 ml BAG 500 ML IV ONE (10:47)
[2023-06-28] MEDS ORDERED: Furosemide 20 mg/2 ml IV VIAL IV SLOW PU ONE (10:47)
[2023-06-28 11:32] LABS: High Sensitivity Troponin 1 Hr 41 pg/mL (<15)
[2023-06-28] MEDS ORDERED: Labetalol IV 5 MG/ML 20 ml VIAL IV PUSH ONE (12:25)
[2023-06-28] MEDS ORDERED: Furosemide 20 mg/2 ml IV VIAL IV ONE (12:26)
[2023-06-28 12:51] LABS: Calcium 8.3 mg/dL (8.6-10.3); Creatinine, Serum 1.33 mg/dL (0.51-0.95)
[2023-06-28 13:38] LABS: Potassium 6.3 mmol/L (3.5-5.0)
[2023-06-28] MEDS ORDERED: Dextrose 50% Syringe 50 ml 25 GM/50 ML SYRINGE IV PUSH PRN (13:42)
[2023-06-28 14:01] LABS: Magnesium 2.7 mg/dL (1.9-2.7)
[2023-06-28] MEDS ORDERED: SODIUM ZIRCONIUM CYCLOSILICATE 10 GM PACKET PO ONE (14:32)
[2023-06-28] MEDS: Heparin 5000 UNITS/ML 1 mL VIAL IV SCH (15:46)
[2023-06-28] MEDS: Heparin DRIP 25,000 UNITS BAG 25,000 UNITS/500 ML BAG IV SCH (15:47)
[2023-06-28] MEDS: Propafenone ER 225 mg CAP (NF) 225 MG CAP.ER PO SCH (20:46)
[2023-06-29 00:47] LABS: Urine Appearance Clear; Urine Bilirubin Negative (Negative); Urine Blood Negative (Negative); Urine Color Straw; Urine Glucose 3+(>=500 mg/dL) (Negative); Urine Ketones Negative (Negative); Urine Nitrite Negative (Negative); Urine Protein 1+(30 mg/dL) (Negative); Urine Specific Gravity 1.007 (1.002-1.030); Urine Urobilinogen Negative (Negative)
[2023-06-29 00:59] LABS: Urine Bacteria Absent (Absent); Urine Red Blood Cell Trace(0-2/hpf) (Absent); Urine Squamous Epithelial Cell Present (Absent); Urine White Blood Cell Trace(0-5/hpf) (Absent)
[2023-06-29 04:07] LABS: ABS Basophils 0.1 10^3/uL (0.0-0.1); ABS Eosinophils 0.4 10^3/uL (0.0-0.5); ABS Lymphocytes 1.6 10^3/uL (1.0-4.8); ABS Monocytes 0.9 10^3/uL (0.0-0.9); ABS Neutrophils 4.2 10^3/uL (1.5-7.6); ABS Nucleated RBC 0.01 10^3/ul; Eosinophil % 5.2 %; Hematocrit 32.4 % (35-45); Hemoglobin 10.7 g/dL (11.5-14.3); Lymphocyte % 22.4 %; Mean Corpuscular Hemoglobin 28.5 pg (27-33); Mean Corpuscular Volume 86.3 fL (80-97); Mean Platelet Volume 7.3 fL (7.5-11.2); Nucleated Red Blood Cells % 0.1 /100 WBC (0.0-0.4); Platelet Count 298 10^3/uL (150-450); Red Blood Count 3.75 10^6/uL (3.63-4.92); Red Cell Distribution Width 14.8 % (12-17); White Blood Count 7.2 10^3/uL (3.8-11.8)
[2023-06-29 04:22] LABS: Calcium 7.9 mg/dL (8.6-10.3); Creatinine, Serum 1.14 mg/dL (0.51-0.95); Magnesium 2.3 mg/dL (1.9-2.7); Potassium 4.7 mmol/L (3.5-5.0); eGFR CKD-EPI 50.5 (>60)
[2023-06-29] MEDS: Heparin 5000 UNITS/ML 1 mL VIAL IV SCH ×2 (04:39→19:38)
[2023-06-29] MEDS: Insulin GLARGINE 100 un/ml 10 ml VIAL SUBCUT SCH (10:22)
[2023-06-29] MEDS: Empagliflozin 25 MG TAB PO SCH (10:23)
[2023-06-29] MEDS: Aspirin EC 81 mg TAB.EC (enteric coated) PO SCH (10:24)
[2023-06-29] MEDS: Isosorbide Mononit ER 30mg TAB PO SCH (10:28)
[2023-06-29] MEDS: Propafenone ER 225 mg CAP (NF) 225 MG CAP.ER PO SCH ×2 (10:34→21:13)
[2023-06-29] MEDS: Heparin DRIP 25,000 UNITS BAG 25,000 UNITS/500 ML BAG IV SCH (18:16)
[2023-06-29] MEDS ORDERED: Calcium Carb (TUMS) 500 mg CHEW TAB PO PRN (21:57)
[2023-06-29] MEDS ORDERED: NS 0.9% 1000 ml BAG 1,000 ML IV SCH (23:55)
[2023-06-30] MEDS: Aspirin EC 81 mg TAB.EC (enteric coated) PO SCH (07:51)
[2023-06-30 08:00] LABS: ABS Basophils 0.1 10^3/uL (0.0-0.1); ABS Eosinophils 0.3 10^3/uL (0.0-0.5); ABS Lymphocytes 1.7 10^3/uL (1.0-4.8); ABS Nucleated RBC 0.01 10^3/ul; Eosinophil % 4.1 %; Hemoglobin 11.1 g/dL (11.5-14.3); Lymphocyte % 21.3 %; Mean Corpuscular Hemoglobin 28.8 pg (27-33); Mean Corpuscular Hgb Conc 33.5 g/dL (31-36); Mean Platelet Volume 7.5 fL (7.5-11.2); Nucleated Red Blood Cells % 0.1 /100 WBC (0.0-0.4); Platelet Count 289 10^3/uL (150-450); Red Blood Count 3.84 10^6/uL (3.63-4.92); Red Cell Distribution Width 14.6 % (12-17); White Blood Count 8.1 10^3/uL (3.8-11.8)
[2023-06-30 08:30] LABS: Calcium 8.3 mg/dL (8.6-10.3); Creatinine, Serum 1.16 mg/dL (0.51-0.95); Potassium 5.4 mmol/L (3.5-5.0); eGFR CKD-EPI 49.5 (>60)
[2023-06-30] MEDS ORDERED: VERAPAMIL 2.5 MG/ML 2 ML VIAL ** 5 mg/2 ml ONE (08:55)
[2023-06-30] MEDS ORDERED: Heparin 1,000 UNIT/ML 10 ml (10,000 UNITS) CATHLAB/DIALYSIS ONE (08:55)
[2023-06-30] MEDS ORDERED: fentaNYL 100 mcg/2 ml 50 MCG/ML VIAL ONE (08:55)
[2023-06-30] MEDS ORDERED: Midazolam 5 mg/5 ml VIAL 1 mg/ml 5 ml VIAL (5 mg) ONE (08:55)
[2023-06-30] MEDS ORDERED: Iohexol 350 (CONTRAST) 100 ML PAK IV ONE ×2 (08:56→09:52)
[2023-06-30] MEDS ORDERED: Heparin 2 UNITS/ML 1000 mls 2,000 ML IV ONE (08:56)
[2023-06-30] MEDS ORDERED: Lidocaine 1% MPF 5 ML VIAL ONE (08:56)
[2023-06-30] MEDS ORDERED: nitroGLYCERIN DRIP 25,000 MCG/250 ML BTL ONE ×2 (08:56→11:30)
[2023-06-30] MEDS ORDERED: Atropine 0.1 MG/ML 10 ml SYR (1 mg) ONE (10:02)
[2023-06-30] MEDS ORDERED: Furosemide 20 mg/2 ml IV VIAL ONE (10:45)
[2023-06-30] MEDS ORDERED: Metoprolol Tartrate 5 mg VIAL 5 ml VIAL (1 mg/ml) ONE ×2 (10:47→13:12)
[2023-06-30] MEDS ORDERED: Isosorbide Mononit ER 30mg TAB PO ONE (11:53)
[2023-06-30] MEDS: Isosorbide Mononit ER 30mg TAB PO SCH (12:27)
[2023-06-30] MEDS: Propafenone ER 225 mg CAP (NF) 225 MG CAP.ER PO SCH (12:28)
[2023-06-30] MEDS ORDERED: Metoprolol Tartrate 5 mg VIAL 5 ml VIAL (1 mg/ml) IV ONE (13:12)
[2023-06-30] MEDS: Empagliflozin 25 MG TAB PO SCH (15:06)
[2023-06-30] MEDS: Insulin GLARGINE 100 un/ml 10 ml VIAL SUBCUT SCH (15:06)
[2023-06-30 15:12] VITALS: BP 149/62
== END 2023-06-30 16:37 | disposition short-term general hospital (02) ==
LOC: ED 09:46 → EDHOLD 09:46 → SUATTDRO 13:33 → MEDTELE 16:50
PROVIDERS: ADMIT Specialist; ATTEND Internal Medicine

== ENCOUNTER 2024-03-25 15:13 | Inpatient (IN) ==
[2024-03-25 16:12] LABS: High Sens Troponin Baseline 46 pg/mL (<15)
[2024-03-25 16:17] LABS: INR 2.94 (0.83-1.13)
[2024-03-25 16:19] LABS: Venous Bicarbonate HCO3 26.4 mmol/L (24-28)
[2024-03-25 16:40] LABS: ALT 21 U/L (7-52); Albumin 3.6 g/dL (3.2-5.2); Albumin/Globulin Ratio 1.4 (1-3); Alkaline Phosphatase 102 U/L (35-149); Anion Gap 8 mmol/L (2-16); Blood Urea Nitrogen 41 mg/dL (6-24); CO2 Carbon Dioxide 23 mmol/L (22-32); Calcium 8.1 mg/dL (8.6-10.3); Chloride 102 mmol/L (101-111); Creatinine, Serum 1.48 mg/dL (0.51-0.95); Globulin 2.6 g/dL (2-4); Glucose 192 mg/dL (70-100); Sodium 133 mmol/L (135-145); Total Bilirubin 0.8 mg/dL (0.2-1.0); Total Protein 6.2 g/dL (6.4-8.9); eGFR CKD-EPI 36.9 (>60)
[2024-03-25 16:44] LABS: Magnesium 2.2 mg/dL (1.9-2.7)
[2024-03-25 16:55] LABS: Potassium Redraw 4.2 mmol/L (3.5-5.0)
[2024-03-25 17:20] LABS: High Sensitivity Troponin 1 Hr 51 pg/mL (<15)
[2024-03-25 17:21] LABS: ABS Basophils 0.1 10^3/uL (0.0-0.1); ABS Eosinophils 0.2 10^3/uL (0.0-0.5); ABS Lymphocytes 0.9 10^3/uL (1.0-4.8); ABS Monocytes 1.2 10^3/uL (0.0-0.9); ABS Neutrophils 8.9 10^3/uL (1.5-7.6); ABS Nucleated RBC 0.01 10^3/ul; Acanthocytes 2+; Eosinophil % 1.5 %; Hematocrit 27.7 % (35-45); Hemoglobin 9.1 g/dL (11.5-14.3); Hypochromasia 2+; Mean Corpuscular Hgb Conc 32.9 g/dL (31-36); Mean Corpuscular Volume 82.1 fL (80-97); Mean Platelet Volume 8.3 fL (7.5-11.2); Nucleated Red Blood Cells % 0.1 %/100WBC (0.0-0.8); Platelet Count 292 10^3/uL (150-450); Red Blood Count 3.37 10^6/uL (3.63-4.92); Red Cell Distribution Width 16.8 % (12-17); White Blood Count 11.2 10^3/uL (3.8-11.8)
[2024-03-25] MEDS: methylPREDNISolone SOD SUCC 125 mg 2 ML VIAL IV ONE (17:44)
[2024-03-25] MEDS: Albuterol/Ipratropium NEB.SOL (2.5/0.5 MG) 3 ML NEB.SOLN INH ONE (17:45)
[2024-03-25] MEDS: Piperacillin/Tazobac 3.375 BAG 3.375 GM/100 ML BAG IV ONE (17:45)
[2024-03-25] MEDS: Magnesium Sulfate 2 gm BAG 2 GM/50 ML BAG IVPB ONE (17:52)
[2024-03-25] MEDS ORDERED: Zosyn per Pharmacy NOTE FOLLOW UP SCH (19:00)
[2024-03-25] MEDS ORDERED: Dextrose 50% Syringe 50 ml 25 GM/50 ML SYRINGE IV PUSH PRN (19:27)
[2024-03-25] MEDS: Furosemide 40 mg/4 ml IV VIAL IV ONE (19:45)
[2024-03-25] MEDS: Albuterol/Ipratropium NEB.SOL (2.5/0.5 MG) 3 ML NEB.SOLN INH SCH (21:30)
[2024-03-25] MEDS ORDERED: ZOSYN 3.375 GM Q8H per EXTENDED INFUSION IV SCH (22:00)
[2024-03-25] MEDS: Insulin GLARGINE 100 un/ml 10 ml VIAL SUBCUT SCH (22:39)
[2024-03-25] MEDS: Lidocaine 5% OINT TUBE TOPICAL SCH (22:45)
[2024-03-25] MEDS: CMCS:Propafenone ER 225 mg CAP (NF) 225 MG CAP.ER PO SCH (22:46)
[2024-03-25] MEDS: cloNIDine 0.1 MG PATCH 0.1 MG/24 HR 7 DAY PATCH TRANSDERM SCH (22:46)
[2024-03-25] MEDS: ZOSYN 3.375 GM Q8H per EXTENDED INFUSION IV SCH (22:57)
[2024-03-26] MEDS: methylPREDNISolone SOD SUCC 40 mg/ml 1 ml VIAL IV SCH (00:41)
[2024-03-26 04:41] LABS: ABS Lymphocytes 0.4 10^3/uL (1.0-4.8); ABS Monocytes 0.1 10^3/uL (0.0-0.9); ABS Neutrophils 10.3 10^3/uL (1.5-7.6); Hematocrit 27.4 % (35-45); Hemoglobin 9.1 g/dL (11.5-14.3); Lymphocyte % 3.3 %; Mean Corpuscular Hemoglobin 26.7 pg (27-33); Mean Corpuscular Hgb Conc 33.2 g/dL (31-36); Mean Corpuscular Volume 80.5 fL (80-97); Mean Platelet Volume 8.2 fL (7.5-11.2); Platelet Count 305 10^3/uL (150-450); Red Cell Distribution Width 16.8 % (12-17); White Blood Count 10.7 10^3/uL (3.8-11.8)
[2024-03-26 05:02] LABS: Creatinine, Serum 1.58 mg/dL (0.51-0.95); Magnesium 2.5 mg/dL (1.9-2.7); Potassium 4.4 mmol/L (3.5-5.0); eGFR CKD-EPI 34.1 (>60)
[2024-03-26] MEDS: Insulin GLARGINE 100 un/ml 10 ml VIAL SUBCUT SCH ×2 (08:26→21:33)
[2024-03-26] MEDS: Empagliflozin 25 MG TAB PO SCH (08:26)
[2024-03-26] MEDS: Iodixanol (CONTRAST) 320 MG/ML 100 ML SDV IV ONE (08:47)
[2024-03-26] MEDS ORDERED: TRAMADOL 100 MG PO SCH (09:00)
[2024-03-26] MEDS: Isosorbide Mononit ER 30mg TAB PO SCH (09:53)
[2024-03-26] MEDS: Mometasone/Formoter 100/5 MDI INH SCH (21:01)
[2024-03-27 06:35] LABS: Calcium 8.2 mg/dL (8.6-10.3); Creatinine, Serum 1.79 mg/dL (0.51-0.95); Magnesium 2.5 mg/dL (1.9-2.7); eGFR CKD-EPI 29.4 (>60)
[2024-03-27 06:55] LABS: ABS Lymphocytes 0.5 10^3/uL (1.0-4.8); ABS Monocytes 0.3 10^3/uL (0.0-0.9); ABS Neutrophils 16.6 10^3/uL (1.5-7.6); Hematocrit 25.4 % (35-45); Hemoglobin 8.3 g/dL (11.5-14.3); Lymphocyte % 2.6 %; Mean Corpuscular Hgb Conc 32.7 g/dL (31-36); Mean Corpuscular Volume 79.5 fL (80-97); Mean Platelet Volume 8.1 fL (7.5-11.2); Platelet Count 358 10^3/uL (150-450); Red Cell Distribution Width 16.6 % (12-17); White Blood Count 17.3 10^3/uL (3.8-11.8)
[2024-03-27] MEDS ORDERED: Sulfur Hexaflouride MICROSPHR 25 MG VIAL ONE (11:34)
[2024-03-27] MEDS: methylPREDNISolone SOD SUCC 40 mg/ml 1 ml VIAL IV SCH (14:51)
[2024-03-27 16:10] LABS: C Reactive Protein 82.82 mg/L (<8.01)
[2024-03-27 17:02] LABS: Erythrocyte Sed Rate 0 mm/Hr (0-29)
[2024-03-27] MEDS: Insulin GLARGINE 100 un/ml 10 ml VIAL SUBCUT SCH (21:58)
[2024-03-28 08:50] LABS: ABS Basophils 0.1 10^3/uL (0.0-0.1); ABS Lymphocytes 0.6 10^3/uL (1.0-4.8); ABS Monocytes 0.5 10^3/uL (0.0-0.9); ABS Neutrophils 17.3 10^3/uL (1.5-7.6); ABS Nucleated RBC 0.02 10^3/ul; Hematocrit 27.2 % (35-45); Hemoglobin 8.8 g/dL (11.5-14.3); Mean Corpuscular Hemoglobin 25.7 pg (27-33); Mean Corpuscular Hgb Conc 32.3 g/dL (31-36); Mean Corpuscular Volume 79.5 fL (80-97); Mean Platelet Volume 7.9 fL (7.5-11.2); Nucleated Red Blood Cells % 0.1 %/100WBC (0.0-0.8); Platelet Count 472 10^3/uL (150-450); Red Blood Count 3.43 10^6/uL (3.63-4.92); Red Cell Distribution Width 16.8 % (12-17); White Blood Count 18.5 10^3/uL (3.8-11.8)
[2024-03-28 09:24] LABS: Calcium 8.5 mg/dL (8.6-10.3); Creatinine, Serum 1.65 mg/dL (0.51-0.95); Magnesium 2.6 mg/dL (1.9-2.7); Potassium 3.9 mmol/L (3.5-5.0); eGFR CKD-EPI 32.4 (>60)
[2024-03-29] MEDS: Furosemide 20 mg/2 ml IV VIAL IV ONE (00:56)
[2024-03-29] MEDS: Furosemide 40 mg/4 ml IV VIAL IV ONE (01:49)
[2024-03-29 02:06] LABS: Calcium 8.5 mg/dL (8.6-10.3); Creatinine, Serum 1.75 mg/dL (0.51-0.95); Magnesium 2.4 mg/dL (1.9-2.7); Potassium 3.7 mmol/L (3.5-5.0); eGFR CKD-EPI 30.2 (>60)
[2024-03-29] MEDS: Metoprolol Tartrate 5 mg VIAL 5 ml VIAL (1 mg/ml) IV ONE (02:06)
[2024-03-29 02:43] LABS: Hematocrit 24.9 % (35-45); Mean Corpuscular Hemoglobin 25.8 pg (27-33); Mean Corpuscular Hgb Conc 32.3 g/dL (31-36); Mean Corpuscular Volume 79.7 fL (80-97); Mean Platelet Volume 7.8 fL (7.5-11.2); Platelet Count 384 10^3/uL (150-450); Red Blood Count 3.12 10^6/uL (3.63-4.92); Red Cell Distribution Width 16.8 % (12-17); White Blood Count 16.8 10^3/uL (3.8-11.8)
[2024-03-29 02:57] LABS: ABS Basophils 0.1 10^3/uL (0.0-0.1); ABS Lymphocytes 0.5 10^3/uL (1.0-4.8); ABS Monocytes 1.6 10^3/uL (0.0-0.9); ABS Neutrophils 14.6 10^3/uL (1.5-7.6); ABS Nucleated RBC 0.03 10^3/ul; Lymphocyte % 2.9 %; Nucleated Red Blood Cells % 0.2 %/100WBC (0.0-0.8)
[2024-03-29 03:07] LABS: High Sensitivity Troponin 1 Hr 215 pg/mL (<15)
[2024-03-29 06:11] LABS: Hematocrit 25.4 % (35-45); Hemoglobin 8.3 g/dL (11.5-14.3); Mean Corpuscular Hemoglobin 26.1 pg (27-33); Mean Corpuscular Hgb Conc 32.7 g/dL (31-36); Mean Corpuscular Volume 79.7 fL (80-97); Platelet Count 419 10^3/uL (150-450); Red Blood Count 3.19 10^6/uL (3.63-4.92); White Blood Count 17.6 10^3/uL (3.8-11.8)
[2024-03-29] MEDS: Potassium Chlor 20 meq TAB.ER PO ONE (06:23)
[2024-03-29 06:27] LABS: ABS Lymphocytes 0.8 10^3/uL (1.0-4.8); ABS Monocytes 1.9 10^3/uL (0.0-0.9); ABS Neutrophils 14.8 10^3/uL (1.5-7.6); ABS Nucleated RBC 0.01 10^3/ul; Lymphocyte % 4.6 %
[2024-03-29 06:28] LABS: Anion Gap 12 mmol/L (2-16); Blood Urea Nitrogen 65 mg/dL (6-24); CO2 Carbon Dioxide 25 mmol/L (22-32); Calcium 8.4 mg/dL (8.6-10.3); Chloride 105 mmol/L (101-111); Creatinine, Serum 1.75 mg/dL (0.51-0.95); Glucose 104 mg/dL (70-100); Potassium 3.5 mmol/L (3.5-5.0); Sodium 142 mmol/L (135-145); eGFR CKD-EPI 30.2 (>60)
[2024-03-29 08:28] LABS: High Sensitivity Troponin 3 Hr 785 pg/mL (<15)
[2024-03-29] MEDS: Furosemide 40 mg/4 ml IV VIAL IV SLOW PU ONE (09:52)
[2024-03-29] MEDS: methylPREDNISolone SOD SUCC 125 mg 2 ML VIAL IV SCH (10:05)
[2024-03-29 11:10] LABS: INR 1.28 (0.83-1.13)
[2024-03-29] MEDS ORDERED: Sulfur Hexaflouride MICROSPHR 25 MG VIAL ONE (11:41)
[2024-03-29] MEDS: Azithromycin 500 mg/250 ml NS 500 MG/250 ML BAG IVPB SCH (12:14)
[2024-03-29 12:30] LABS: % Iron Saturation 7 % (15-55); .Transferrin 207 mg/dL (203-362); Iron < 20 ug/dL (50-212); Total Iron Binding Capacity 290 mcg/dL (250-450); Unsaturated Iron Binding 270 ug/dL
[2024-03-29] MEDS: Doxycycline 100 MG in NS 0.9% 250 ML BAG IVPB SCH (12:46)
[2024-03-29 13:05] LABS: Ferritin 68.3 ng/mL (11-307)
[2024-03-29] MEDS: Albuterol/Ipratropium NEB.SOL (2.5/0.5 MG) 3 ML NEB.SOLN INH SCH (19:25)
[2024-03-30 04:57] LABS: ABS Basophils 0.1 10^3/uL (0.0-0.1); ABS Lymphocytes 0.3 10^3/uL (1.0-4.8); ABS Monocytes 0.3 10^3/uL (0.0-0.9); ABS Neutrophils 9.6 10^3/uL (1.5-7.6); ABS Nucleated RBC 0.01 10^3/ul; Hematocrit 25.4 % (35-45); Hemoglobin 8.4 g/dL (11.5-14.3); Lymphocyte % 2.6 %; Mean Corpuscular Hemoglobin 26.5 pg (27-33); Mean Corpuscular Hgb Conc 33.1 g/dL (31-36); Mean Corpuscular Volume 79.8 fL (80-97); Mean Platelet Volume 8.2 fL (7.5-11.2); Nucleated Red Blood Cells % 0.1 %/100WBC (0.0-0.8); Platelet Count 349 10^3/uL (150-450); Red Blood Count 3.18 10^6/uL (3.63-4.92); Red Cell Distribution Width 16.8 % (12-17); White Blood Count 10.2 10^3/uL (3.8-11.8)
[2024-03-30 05:30] LABS: Calcium 7.9 mg/dL (8.6-10.3); Creatinine, Serum 1.59 mg/dL (0.51-0.95); Magnesium 2.3 mg/dL (1.9-2.7); Potassium 4.1 mmol/L (3.5-5.0); eGFR CKD-EPI 33.7 (>60)
[2024-03-30] MEDS: Ferric Gluconate IV 250 MG in NS 0.9% 250 ml 200 ML IVPB SCH (15:32)
[2024-03-30] MEDS ORDERED: Albuterol/Ipratropium NEB.SOL (2.5/0.5 MG) 3 ML NEB.SOLN INH PRN (19:12)
[2024-03-31 06:19] LABS: Hematocrit 27.1 % (35-45); Hemoglobin 8.6 g/dL (11.5-14.3); Mean Corpuscular Hemoglobin 25.3 pg (27-33); Mean Corpuscular Hgb Conc 31.6 g/dL (31-36); Mean Platelet Volume 8.2 fL (7.5-11.2); Platelet Count 418 10^3/uL (150-450); Red Blood Count 3.38 10^6/uL (3.63-4.92); Red Cell Distribution Width 17.1 % (12-17); White Blood Count 14.3 10^3/uL (3.8-11.8)
[2024-03-31 06:37] LABS: Calcium 8.1 mg/dL (8.6-10.3); Creatinine, Serum 1.49 mg/dL (0.51-0.95); Magnesium 2.2 mg/dL (1.9-2.7); Potassium 4.3 mmol/L (3.5-5.0); eGFR CKD-EPI 36.4 (>60)
[2024-03-31] MEDS: Albuterol HFA INHALER 8 gm MDI INH PRN (08:09)
[2024-04-01 06:38] LABS: Hemoglobin 8.7 g/dL (11.5-14.3); Mean Corpuscular Hemoglobin 25.7 pg (27-33); Mean Corpuscular Hgb Conc 32.3 g/dL (31-36); Mean Corpuscular Volume 79.7 fL (80-97); Mean Platelet Volume 8.2 fL (7.5-11.2); Platelet Count 473 10^3/uL (150-450); Red Blood Count 3.38 10^6/uL (3.63-4.92); Red Cell Distribution Width 17.1 % (12-17); White Blood Count 16.2 10^3/uL (3.8-11.8)
[2024-04-01 06:52] LABS: Calcium 8.2 mg/dL (8.6-10.3); Creatinine, Serum 1.56 mg/dL (0.51-0.95); Magnesium 2.2 mg/dL (1.9-2.7); Potassium 4.6 mmol/L (3.5-5.0); eGFR CKD-EPI 34.5 (>60)
[2024-04-01 08:31] LABS: ABS Lymphocytes 0.9 10^3/uL (1.0-4.8); ABS Monocytes 0.6 10^3/uL (0.0-0.9); ABS Neutrophils 14.7 10^3/uL (1.5-7.6); ABS Nucleated RBC 0.03 10^3/ul; Acanthocytes 2+; Burr Cells 2+; Hypochromasia 2+; Lymphocyte % 5.6 %; Macrocytosis 1+; Microcytosis 1+; Nucleated Red Blood Cells % 0.2 %/100WBC (0.0-0.8); Polychromasia 1+; Schistocytes 1+; Target Cells 1+
[2024-04-01] MEDS: cloNIDine 0.1 MG PATCH 0.1 MG/24 HR 7 DAY PATCH TRANSDERM SCH (23:12)
[2024-04-02 05:51] LABS: Hemoglobin 8.5 g/dL (11.5-14.3); Mean Corpuscular Hemoglobin 25.2 pg (27-33); Mean Corpuscular Hgb Conc 31.4 g/dL (31-36); Mean Corpuscular Volume 80.2 fL (80-97); Mean Platelet Volume 8.1 fL (7.5-11.2); Platelet Count 500 10^3/uL (150-450); Red Blood Count 3.36 10^6/uL (3.63-4.92); Red Cell Distribution Width 16.9 % (12-17); White Blood Count 20.5 10^3/uL (3.8-11.8)
[2024-04-02 06:06] LABS: Calcium 8.3 mg/dL (8.6-10.3); Creatinine, Serum 1.54 mg/dL (0.51-0.95); Magnesium 2.1 mg/dL (1.9-2.7); Potassium 4.6 mmol/L (3.5-5.0)
[2024-04-02 07:49] LABS: ABS Lymphocytes 1.3 10^3/uL (1.0-4.8); ABS Neutrophils 18.2 10^3/uL (1.5-7.6); ABS Nucleated RBC 0.07 10^3/ul; Eosinophil % 0.1 %; Lymphocyte % 6.5 %; Nucleated Red Blood Cells % 0.3 %/100WBC (0.0-0.8)
[2024-04-02 07:50] LABS: Acanthocytes 2+; Anisocytosis 1+; Burr Cells 1+; Macrocytosis 1+; Microcytosis 1+; Polychromasia 1+
[2024-04-02] MEDS: Lidocaine 5% OINT TUBE TOPICAL PRN (21:51)
[2024-04-03 07:04] LABS: Hematocrit 26.8 % (35-45); Hemoglobin 8.5 g/dL (11.5-14.3); Mean Corpuscular Hemoglobin 25.5 pg (27-33); Mean Corpuscular Hgb Conc 31.9 g/dL (31-36); Mean Corpuscular Volume 80.1 fL (80-97); Mean Platelet Volume 8.2 fL (7.5-11.2); Platelet Count 507 10^3/uL (150-450); Red Blood Count 3.34 10^6/uL (3.63-4.92); Red Cell Distribution Width 17.5 % (12-17); White Blood Count 23.3 10^3/uL (3.8-11.8)
[2024-04-03 09:39] LABS: Calcium 8.5 mg/dL (8.6-10.3); Creatinine, Serum 1.59 mg/dL (0.51-0.95); Potassium 4.5 mmol/L (3.5-5.0); eGFR CKD-EPI 33.7 (>60)
[2024-04-03] MEDS: Metoprolol Tartrate 5 mg VIAL 5 ml VIAL (1 mg/ml) IV ONE (09:40)
[2024-04-03 11:09] LABS: High Sensitivity Troponin 1 Hr 126 pg/mL (<15)
[2024-04-03] MEDS ORDERED: Sulfur Hexaflouride MICROSPHR 25 MG VIAL ONE (12:55)
[2024-04-03] MEDS: fentaNYL 100 mcg/2 ml 50 MCG/ML VIAL ONE (17:31)
[2024-04-04 07:30] LABS: Hematocrit 26.1 % (35-45); Hemoglobin 8.4 g/dL (11.5-14.3); Mean Corpuscular Hemoglobin 25.6 pg (27-33); Mean Corpuscular Hgb Conc 32.3 g/dL (31-36); Mean Corpuscular Volume 79.3 fL (80-97); Mean Platelet Volume 7.7 fL (7.5-11.2); Platelet Count 484 10^3/uL (150-450); Red Blood Count 3.29 10^6/uL (3.63-4.92); Red Cell Distribution Width 17.6 % (12-17); White Blood Count 21.2 10^3/uL (3.8-11.8)
[2024-04-04 08:06] LABS: Creatinine, Serum 1.4 mg/dL (0.51-0.95); Potassium 4.4 mmol/L (3.5-5.0); eGFR CKD-EPI 39.2 (>60)
[2024-04-04 18:35] LABS: Urine Appearance Clear; Urine Bilirubin Negative (Negative); Urine Blood Negative (Negative); Urine Color Light-Yellow; Urine Glucose 3+ (>=300 mg/dL) (Negative); Urine Ketones Negative (Negative); Urine Nitrite Negative (Negative); Urine Protein Negative (Negative); Urine Urobilinogen Negative (Negative); Urine pH 5.5 (5.0-8.0)
[2024-04-04] MEDS: methylPREDNISolone SOD SUCC 40 mg/ml 1 ml VIAL IV ONE (21:39)
[2024-04-05 07:22] LABS: Hematocrit 27.9 % (35-45); Hemoglobin 8.8 g/dL (11.5-14.3); Mean Corpuscular Hemoglobin 25.6 pg (27-33); Mean Corpuscular Hgb Conc 31.4 g/dL (31-36); Mean Corpuscular Volume 81.7 fL (80-97); Platelet Count 463 10^3/uL (150-450); Red Blood Count 3.42 10^6/uL (3.63-4.92); White Blood Count 26.1 10^3/uL (3.8-11.8)
[2024-04-05 07:40] LABS: Calcium 8.1 mg/dL (8.6-10.3); Creatinine, Serum 1.42 mg/dL (0.51-0.95); Magnesium 1.9 mg/dL (1.9-2.7); Potassium 4.5 mmol/L (3.5-5.0); eGFR CKD-EPI 38.6 (>60)
[2024-04-05] MEDS: Magnesium Sulfate 2 gm BAG 2 GM/50 ML BAG IVPB ONE (12:19)
[2024-04-06 06:29] LABS: Hematocrit 25.7 % (35-45); Hemoglobin 8.1 g/dL (11.5-14.3); Mean Corpuscular Hemoglobin 25.8 pg (27-33); Mean Corpuscular Hgb Conc 31.7 g/dL (31-36); Mean Corpuscular Volume 81.3 fL (80-97); Mean Platelet Volume 8.1 fL (7.5-11.2); Platelet Count 441 10^3/uL (150-450); Red Blood Count 3.16 10^6/uL (3.63-4.92); Red Cell Distribution Width 17.4 % (12-17); White Blood Count 22.3 10^3/uL (3.8-11.8)
[2024-04-06 06:48] LABS: Creatinine, Serum 1.34 mg/dL (0.51-0.95); Magnesium 2.3 mg/dL (1.9-2.7); eGFR CKD-EPI 41.4 (>60)
[2024-04-06 07:17] LABS: ABS Lymphocytes 1.6 10^3/uL (1.0-4.8); ABS Monocytes 2.3 10^3/uL (0.0-0.9); ABS Neutrophils 18.4 10^3/uL (1.5-7.6); ABS Nucleated RBC 0.08 10^3/ul; Anisocytosis 2+; Burr Cells 1+; Eosinophil % 0.2 %; Hypochromasia 1+; Lymphocyte % 7.2 %; Macrocytosis 1+; Microcytosis 1+; Nucleated Red Blood Cells % 0.3 %/100WBC (0.0-0.8); Polychromasia 1+; Schistocytes 1+
[2024-04-06] MEDS: Insulin GLARGINE 100 un/ml 10 ml VIAL SUBCUT ONE (10:27)
[2024-04-06] MEDS: Sulfamethox/Trimethoprim DS TAB 800/160 mg PO ONE (15:15)
[2024-04-06 17:13] VITALS: BP 142/53
== END 2024-04-06 18:30 | disposition home health service (06) | DRG 193 ==
LOC: ED 15:13 → SUATTDRO 18:34 → EDHOLD 18:34 → ICU 21:15 → MEDTELE 03-26 16:37 → ICU 03-29 10:52 → MED 03-30 17:58
PROVIDERS: ADMIT Internal Medicine; ATTEND Internal Medicine